=== PATIENT | female | born 1975 | race Caucasian/White ===

== ENCOUNTER → 2017-05-09 15:12 | Outpatient (POV) | payer BC, SELFPAY ==
[2017-05-09 15:48] VITALS: BP 152/101; PULSE 84; RESP 18; TEMP 36.6; O2SAT 98; BMI 33.4
--- NOTE | 2017-05-09 15:58 | P.CONS_ITS ---
[facility] Pain Management SOAP Note Subjective:: This patient is a pleasant 41-year-old white female who we are treating for bilateral hip pain. She is status post bilateral SI joint injections under fluoroscopy. She had 80% relief of her pain symptoms for approximately 3 weeks. Her pain is now returned gradually. I believe she would benefit from repeat bilateral SI joint injections under fluoroscopy. Objective:: Alert and oriented ?3 in no acute distress. Tenderness over both SI joints. Positive Nathalie's test bilaterally. Patient does have a normal gait. Motor strength of the lower extremities is 5/5. There are no gross sensory deficit. Assessment:: Sacroiliitis Plan:: We will seek approval and plan on repeat bilateral SI joint injections under fluoroscopy. The patient did get 80% relief of her pain symptoms and now pain is slowly starting to return.
== END ==
PROVIDERS: PCP Family Medicine; Visit Provider Anesthesiology
DX: M46.1 Sacroiliitis, not elsewhere classified (principal)
CPT/HCPCS: 99212

== ENCOUNTER → 2017-06-10 15:47 | Day surgery (SDC) | payer BC, SELFPAY ==
[2017-06-10 16:01] VITALS: BP 144/90; BP 146/91; PULSE 79; PULSE 80; RESP 16; RESP 18; TEMP 36.4; TEMP 36.6; O2SAT 98; O2SAT 99; BMI 34.2
--- NOTE | 2017-06-10 16:18 | HMH.PMPROC ---
- Procedure Date: 06/10/17 Time: 16:20 Anesthesiologist:: Jamel Wayne MD Complications:: None Pre-procedure Diagnosis:: Bilateral sacroiliitis Post-procedure Diagnosis:: Same Indications for Procedure:: Pump refill this patient is a pleasant 41-year-old white female who we are treating for bilateral hip pain. She did well with previous bilateral SI joint injections. Her pain is starting to return. We will do repeat bilateral SI joint injections under fluoroscopy. She does have positive Nathalie's test bilaterally. Procedure Details:: B/L SI joint injection under fluoroscopy Informed consent was obtained and the risks and benefits of the procedure was explained to the patient. The patient was taken to the procedure room and placed prone on the procedure table. The patient was prepped using ChloraPrep. The skin and subcutaneous tissues overlying the SI joints were anesthetized using lidocaine. I placed a 22-gauge needle first in the left SI joint and second in the right SI joint. Needle placement was confirmed with dye. After this we injected 5 mL bupivacaine 0.25% and Depo-Medrol 40 mg into each SI joint. Patient tolerated the procedure well with no complication. Plan and Disposition:: We will follow-up with her in 2 weeks. We will reevaluate her symptoms at that time.
[2017-06-10 16:19] VITALS: BP 176/100; PULSE 66; RESP 18
[2017-06-10 16:24] VITALS: BP 156/100; PULSE 69; RESP 18
== END ==
PROVIDERS: Family Provider Family Medicine; PCP Family Medicine; Visit Provider Anesthesiology
DX: M46.1 Sacroiliitis, not elsewhere classified (principal)
CPT/HCPCS: 27096; G0260; J1030; Q9966

== ENCOUNTER → 2017-06-28 15:17 | Outpatient (POV) | payer BC, SELFPAY ==
[2017-06-28 15:22] VITALS: BP 166/85; PULSE 91; RESP 18; O2SAT 100; BMI 33.4
--- NOTE | 2017-06-28 15:59 | HMH.PAINSOAP ---
[facility] Pain Management SOAP Note Subjective:: Patient is a pleasant 41-year-old white female who presents today for follow-up after bilateral SI joint injections. Patient has been doing well since her injection she reports moderate to significant relief. Patient's functionality has increased since her last injections. Patient is having some myofascial pain in her thoracic spine at this time. Patient is continuing to use stretching therapies to help alleviate this. Patient is not currently on any muscle relaxers. ROS General: no recent weight change, no fever, no sleep disturbances Respiratory: no cough, no shortness of air, no recurring pulmonary infections Cardiovascular/Peripheral Vascular: No chest pain, No palpitations, no edema, no shortness of breath. Gastrointestinal: no incontinence, normal bowel movements reported Genitourinary: no incontinence Musculoskeletal: Thoracic back pain, bilateral SI joint pain Psychiatric: normal mood/ affect, Neurological: [denies weakness in extremities], [denies balance issues] Objective:: Physical Exam General: Alert and oriented x3, no acute distress, pleasant and cooperative, [on room air] Lungs: Resps E/U, Symmetrical chest expansion, Eyes: PERRL Musculoskeletal: Flexion and extension of lumbar spine somewhat guarded secondary to pain, deep tendon reflexes normal, strength in upper and lower extremities [5/5], normal gait noted, positive Nathalie's test bilaterally, palpable trigger point in the thoracic paraspinous on the right side. Neurological: speech clear, nurse wound care equal, no gross sensory deficits Assessment:: Myofascial pain syndrome, sacroiliitis Plan:: We will call in the patient's Zanaflex 4 mg 1 p.o. 3 times daily as needed. I discussed with the patient to take this at nighttime to see how it affects her prior to resuming normal activities. We will possibly do another SI joint injection in the future but patient is having good relief with it still at this point. Patient is to continue her home stretching exercises. We will follow-up with this patient in 3 months unless she needs us before that. This note was dictated using voice recognition software and may contain errors or omissions
--- NOTE | 2017-06-28 16:02 | P.CONS_ITS ---
[facility] Pain Management SOAP Note Subjective:: Patient is a pleasant 41-year-old white female who presents today for follow-up after bilateral SI joint injections. Patient has been doing well since her injection she reports moderate to significant relief. Patient's functionality has increased since her last injections. Patient is having some myofascial pain in her thoracic spine at this time. Patient is continuing to use stretching therapies to help alleviate this. Patient is not currently on any muscle relaxers. ROS General: no recent weight change, no fever, no sleep disturbances Respiratory: no cough, no shortness of air, no recurring pulmonary infections Cardiovascular/Peripheral Vascular: No chest pain, No palpitations, no edema, no shortness of breath. Gastrointestinal: no incontinence, normal bowel movements reported Genitourinary: no incontinence Musculoskeletal: Thoracic back pain, bilateral SI joint pain Psychiatric: normal mood/ affect, Neurological: [denies weakness in extremities], [denies balance issues] Objective:: Physical Exam General: Alert and oriented x3, no acute distress, pleasant and cooperative, [ on room air] Lungs: Resps E/U, Symmetrical chest expansion, Eyes: PERRL Musculoskeletal: Flexion and extension of lumbar spine somewhat guarded secondary to pain, deep tendon reflexes normal, strength in upper and lower extremities [5/5], normal gait noted, positive Nathalie's test bilaterally, palpable trigger point in the thoracic paraspinous on the right side. Neurological: speech clear, hydraulic mechanic equal, no gross sensory deficits Assessment:: Myofascial pain syndrome, sacroiliitis Plan:: We will call in the patient's Zanaflex 4 mg 1 p.o. 3 times daily as needed. I discussed with the patient to take this at nighttime to see how it affects her prior to resuming normal activities. We will possibly do another SI joint injection in the future but patient is having good relief with it still at this point. Patient is to continue her home stretching exercises. We will follow- up with this patient in 3 months unless she needs us before that. This note was dictated using voice recognition software and may contain errors or omissions
--- NOTE | 2017-06-30 14:07 | PC.PHONENOTE ---
called in Rx for Zanaflex 4mg TID prn #90 with no refills to [facility] in [place]
== END ==
PROVIDERS: Family Provider Family Medicine; PCP Family Medicine; Visit Provider Clinical Nurse Specialist Family Health
DX: M79.1 Myalgia (principal); M46.1 Sacroiliitis, not elsewhere classified
CPT/HCPCS: 99212

== ENCOUNTER → 2017-09-26 09:12 | Outpatient (POV) | payer BC, SELFPAY ==
[2017-09-26 10:01] VITALS: BP 143/92; PULSE 80; RESP 18; O2SAT 97; BMI 32.5
--- NOTE | 2017-09-26 12:33 | HMH.PAINSOAP ---
[facility] Pain Management SOAP Note Subjective:: Patient is a pleasant 42-year-old white female who presents today for follow-up. Patient has had bilateral SI joint injections in the past with good relief. Today she reports a different kind of pain going from her back and radiating into her left leg. Patient does have MRI of lumbar spine doing an L4-L5 disc bulge. She is taking Zanaflex at bedtime this is been very beneficial for her. Patient is continuing her home stretching exercises. Patient's tried and failed anti-inflammatory medications. Patient rates her pain a 6 out of 10 today. ROS General: no recent weight change, no fever, no sleep disturbances Respiratory: no cough, no shortness of air, no recurring pulmonary infections Cardiovascular/Peripheral Vascular: No chest pain, No palpitations, no edema, no shortness of breath. Gastrointestinal: no incontinence, normal bowel movements reported Genitourinary: no incontinence Musculoskeletal: Back pain, leg pain Psychiatric: normal mood/ affect Neurological: [denies weakness in extremities], [denies balance issues] Objective:: Physical Exam General: Alert and oriented x3, no acute distress, pleasant and cooperative, [on room air] Lungs: Resps E/U, Symmetrical chest expansion, Eyes: PERRL Musculoskeletal: Flexion and extension of lumbar spine somewhat guarded secondary to pain, deep tendon reflexes normal, strength in upper and lower extremities [5/5], normal gait noted, positive straight leg raise test at 30? bilaterally Neurological: speech clear, refractory bricklayer equal, no gross sensory deficits Assessment:: Degenerative disc disease of the lumbar spine with lumbar radiculopathy, disc bulge Plan:: We will schedule an L4-L5 lumbar epidural steroid injection. Given her relief with injections in the past I believe that this will be beneficial given her symptomology. Patient is not on any blood thinners. We will also refill her Zanaflex 4 mg 1 p.o. 3 times daily. I will follow-up with this patient after her injection we will reassess her symptoms at that time. This note was dictated using voice recognition software and may contain errors or omissions
--- NOTE | 2017-09-26 12:37 | P.CONS_ITS ---
[facility] Pain Management SOAP Note Subjective:: Patient is a pleasant 42-year-old white female who presents today for follow- up. Patient has had bilateral SI joint injections in the past with good relief. Today she reports a different kind of pain going from her back and radiating into her left leg. Patient does have MRI of lumbar spine doing an L4- L5 disc bulge. She is taking Zanaflex at bedtime this is been very beneficial for her. Patient is continuing her home stretching exercises. Patient's tried and failed anti-inflammatory medications. Patient rates her pain a 6 out of 10 today. ROS General: no recent weight change, no fever, no sleep disturbances Respiratory: no cough, no shortness of air, no recurring pulmonary infections Cardiovascular/Peripheral Vascular: No chest pain, No palpitations, no edema, no shortness of breath. Gastrointestinal: no incontinence, normal bowel movements reported Genitourinary: no incontinence Musculoskeletal: Back pain, leg pain Psychiatric: normal mood/ affect Neurological: [denies weakness in extremities], [denies balance issues] Objective:: Physical Exam General: Alert and oriented x3, no acute distress, pleasant and cooperative, [ on room air] Lungs: Resps E/U, Symmetrical chest expansion, Eyes: PERRL Musculoskeletal: Flexion and extension of lumbar spine somewhat guarded secondary to pain, deep tendon reflexes normal, strength in upper and lower extremities [5/5], normal gait noted, positive straight leg raise test at 30? bilaterally Neurological: speech clear, sports marketing coordinator equal, no gross sensory deficits Assessment:: Degenerative disc disease of the lumbar spine with lumbar radiculopathy, disc bulge Plan:: We will schedule an L4-L5 lumbar epidural steroid injection. Given her relief with injections in the past I believe that this will be beneficial given her symptomology. Patient is not on any blood thinners. We will also refill her Zanaflex 4 mg 1 p.o. 3 times daily. I will follow-up with this patient after her injection we will reassess her symptoms at that time. This note was dictated using voice recognition software and may contain errors or omissions
== END ==
PROVIDERS: Family Provider Family Medicine; PCP Family Medicine; Visit Provider Clinical Nurse Specialist Family Health
DX: M54.16 Radiculopathy, lumbar region (principal)
CPT/HCPCS: 99212

== ENCOUNTER → 2017-10-20 08:15 | Outpatient (CLI) | payer BC, SELFPAY ==
--- NOTE | 2017-10-20 08:18 | MM_ITS ---
MM Dig screening mamm BI w/CAD ORDERING PHYSICIAN : Laura Woods PATIENT AGE: 42 years GENDER: Female COMPARISON: Baseline mammogram, with no previous for comparison INDICATION: ITS.REASON: SCREENING no hormones. No complaints. TECHNIQUE: Standard CC and MLO images were obtained. R2 CAD reviewed. FINDINGS: Moderately dense heterogeneous breast with mild asymmetry No dominant mass nor suspicious calcifications either breast. RIGHT BREAST:The asymmetric breast tissue most evident towards the medial central breast on right but this tissue appears to dissipate on the subsequent MLO and axillary cc view. LEFT BREAST:No unique focal area of concern. Moderately dense breast tissue most evident towards upper outer quadrant . Bilateral follow-up in one year adequate but should be encouraged and emphasized confirm stable baseline character IMPRESSION: Baseline mammogram reveals no suspicious findings. No focal area of concern. . moderately dense inhomogeneous and moderate asymmetric breast . Bilateral follow-up in one year recommended. Suggest Encouraged and emphasized to confirm stable baseline character in this heterogeneous breast BI-RADS Category: 2 Benign Finding(s) RECOMMENDED FOLLOW-UP: 1YR 1 YEAR FOLLOW-UP (A letter has been sent to the patient regarding results of the study.)
== END ==
PROVIDERS: Family Provider Family Medicine; PCP Family Medicine; Visit Provider Student in an Organized Health Care Education/Training Program
DX: Z12.31 Encounter for screening mammogram for malignant neoplasm of breast (principal)
CPT/HCPCS: 77067

== ENCOUNTER → 2017-11-07 09:00 | Outpatient (POV) | payer BC, SELFPAY ==
[2017-11-07 09:27] VITALS: BP 141/88; PULSE 69; RESP 18; O2SAT 98; BMI 34.2
--- NOTE | 2017-11-07 09:35 | HMH.PAINSOAP ---
[facility] Pain Management SOAP Note Subjective:: Patient is a pleasant 42-year-old white female who we are treating for low back pain with bilateral hip pain and radiation down her legs. Patient is following up after lumbar epidural steroid injection. Patient states she is up to 80% better. Patient states she is sleeping better. Patient is still on Zanaflex 4 mg 1 p.o. 3 times daily. Patient still has some back pain. If patient is having worsening back pain I believe an MRI may be beneficial just to rule out any additional or new pathology. ROS General: no recent weight change, no fever, no sleep disturbances Respiratory: no cough, no shortness of air, no recurring pulmonary infections Cardiovascular/Peripheral Vascular: No chest pain, No palpitations, no edema, no shortness of breath. Gastrointestinal: no incontinence, normal bowel movements reported Genitourinary: no incontinence Musculoskeletal: Back pain, leg pain Psychiatric: normal mood/ affect Neurological: [denies weakness in extremities], [denies balance issues] Objective:: Physical Exam General: Alert and oriented x3, no acute distress, pleasant and cooperative, [on room air] Lungs: Resps E/U, Symmetrical chest expansion, Eyes: PERRL Musculoskeletal: Flexion and extension of lumbar spine somewhat guarded secondary to pain, deep tendon reflexes normal, strength in upper and lower extremities [5/5], slightly antalgic gait noted Neurological: speech clear, envelope fold operator equal, no gross sensory deficits Assessment:: Degenerative disc disease of lumbar spine with lumbar radiculopathy Plan:: We will refill the patient's Zanaflex 4 mg 1 tab p.o. 3 times daily. We will follow-up with the patient on an as-needed basis. If patient continues to have worsening back pain we will order a brand-new MRI. This note was dictated using voice recognition software and may contain errors or omissions
--- NOTE | 2017-11-07 09:38 | P.CONS_ITS ---
[facility] Pain Management SOAP Note Subjective:: Patient is a pleasant 42-year-old white female who we are treating for low back pain with bilateral hip pain and radiation down her legs. Patient is following up after lumbar epidural steroid injection. Patient states she is up to 80% better. Patient states she is sleeping better. Patient is still on Zanaflex 4 mg 1 p.o. 3 times daily. Patient still has some back pain. If patient is having worsening back pain I believe an MRI may be beneficial just to rule out any additional or new pathology. ROS General: no recent weight change, no fever, no sleep disturbances Respiratory: no cough, no shortness of air, no recurring pulmonary infections Cardiovascular/Peripheral Vascular: No chest pain, No palpitations, no edema, no shortness of breath. Gastrointestinal: no incontinence, normal bowel movements reported Genitourinary: no incontinence Musculoskeletal: Back pain, leg pain Psychiatric: normal mood/ affect Neurological: [denies weakness in extremities], [denies balance issues] Objective:: Physical Exam General: Alert and oriented x3, no acute distress, pleasant and cooperative, [ on room air] Lungs: Resps E/U, Symmetrical chest expansion, Eyes: PERRL Musculoskeletal: Flexion and extension of lumbar spine somewhat guarded secondary to pain, deep tendon reflexes normal, strength in upper and lower extremities [5/5], slightly antalgic gait noted Neurological: speech clear, bonbon cream warmer equal, no gross sensory deficits Assessment:: Degenerative disc disease of lumbar spine with lumbar radiculopathy Plan:: We will refill the patient's Zanaflex 4 mg 1 tab p.o. 3 times daily. We will follow-up with the patient on an as-needed basis. If patient continues to have worsening back pain we will order a brand-new MRI. This note was dictated using voice recognition software and may contain errors or omissions
== END ==
PROVIDERS: Family Provider Family Medicine; PCP Family Medicine; Visit Provider Clinical Nurse Specialist Family Health
DX: M54.16 Radiculopathy, lumbar region (principal)
CPT/HCPCS: 99212

== ENCOUNTER → 2018-01-16 15:39 | Outpatient (POV) | payer BC, SELFPAY ==
[2018-01-16 15:54] VITALS: BP 118/74; PULSE 83; RESP 18; O2SAT 98; BMI 34.2
--- NOTE | 2018-01-19 10:37 | PC.PHONENOTE ---
CALLED IN RX FOR GABAPENTIN 100MG QHS WITH 2 REFILLS AND CANCELLED RX FOR ELAVIL PER PROVIDER ORDER.
--- NOTE | 2018-02-21 08:53 | HMH.PAINSOAP ---
[facility] Pain Management SOAP Note Subjective:: Patient is a pleasant 42-year-old white female who presents today for follow-up after SI joint injection. Patient is doing well however she is having some low back pain. Patient does not have any recent MRI. Rates her pain a 5 out of 10. Patient is continuing to have some difficulty sleeping. Patient does take Zanaflex to help. ROS General: no recent weight change, no fever, no sleep disturbances Respiratory: no cough, no shortness of air, no recurring pulmonary infections Cardiovascular/Peripheral Vascular: No chest pain, No palpitations, no edema, no shortness of breath. Gastrointestinal: no incontinence, normal bowel movements reported Genitourinary: no incontinence Musculoskeletal: Back pain, leg pain Psychiatric: normal mood/ affect Neurological: [denies weakness in extremities], [denies balance issues] Objective:: Physical Exam General: Alert and oriented x3, no acute distress, pleasant and cooperative, [on room air] Lungs: Resps E/U, Symmetrical chest expansion, Eyes: PERRL Musculoskeletal: Flexion and extension of lumbar spine somewhat guarded secondary to pain, deep tendon reflexes normal, strength in upper and lower extremities [5/5], slightly antalgic gait noted Neurological: speech clear, justice court deputy clerk equal, no gross sensory deficits Assessment:: Back pain, SI joint pain sacroiliitis Plan:: We will schedule an MRI for the patient. If she has pathology we will plan on L4-L5 lumbar epidural steroid injection. Patient is not on any anticoagulation therapy. Patient is continuing to be active and continuing a home stretching program. Patient is on anti-inflammatories. This note was dictated using voice recognition software and may contain errors or omissions
== END ==
PROVIDERS: Family Provider Family Medicine; PCP Family Medicine; Visit Provider Clinical Nurse Specialist Family Health
DX: Z53.8 Procedure and treatment not carried out for other reasons (principal)

== ENCOUNTER → 2018-01-25 15:52 | Outpatient (CLI) | payer BC, SELFPAY ==
--- NOTE | 2018-01-25 15:55 | MR_ITS ---
MR lumbar spine wo con, MR 3-d myelogram/MRCP HISTORY: LBP XYRS. Intermittent bilateral leg numbness and pain. RT leg is worse. NO HX back surgery No trauma. ITS.REASON: BACK PAIN ORDERING PHYSICIAN: Ani Stark PATIENT AGE: 42 years Comparison: CT 03-25-16 TECHNIQUE: Standard multiplanar multiecho sequences are performed without contrast. 3-D MIP and myelographic images are also rendered and reviewed FINDINGS: There is normal alignment. The spinal cord ends at the L1-L2 level. T11-T12: Degenerative disc disease. Minimal right-sided facet and ligamentum hypertrophy T12-L1: Mild degenerative disc disease. L1-L2: Unremarkable. L2-L3: Minimal disc desiccation with mild facet and ligamentum hypertrophy. L3-L4: Minimal bulging disc with minimal central disc protrusion and mild facet and ligamentum hypertrophy. L4-L5: Mild concentric bulging disc with minimal central disc protrusion with a small annular fissure. The bulging disc and minimal disc protrusion does abut the anterior aspect of both L5 nerve roots without significant displacement. There is mild facet and ligamentum hypertrophy. L5-S1: Degenerative disc disease with bulging disc and a small broad-based central left paracentral disc protrusion which abuts the anteromedial aspect of both S1 nerve roots. There is mild facet and ligamentum hypertrophy. No canal stenosis or extruded herniated disc evident. IMPRESSION: 1. Mild degenerative changes. Please see above for detailed description at each level with mild degenerative disc disease along with facet and ligamentum hypertrophy. 2. Minimal bulging disc and minimal central disc protrusion at L3-L4. 3. Mild concentric bulging disc at L4-L5 with minimal central disc protrusion with a small annular fissure. The bulging disc and minimal disc protrusion does abut the anterior aspect of both L5 nerve roots without significant displacement. There is mild facet and ligamentum hypertrophy. 4. Degenerative disc disease at L5-S1 with bulging disc and a small broad-based central /left paracentral disc protrusion which abuts the anteromedial aspect of both S1 nerve roots. There is mild facet and ligamentum hypertrophy
== END ==
PROVIDERS: Family Provider Family Medicine; PCP Family Medicine; Visit Provider Clinical Nurse Specialist Family Health
DX: M54.5 Low back pain (principal)
CPT/HCPCS: 72148; 76376

== ENCOUNTER → 2018-03-06 15:54 | Outpatient (POV) | payer BC, SELFPAY ==
[2018-03-06 16:27] LABS: Basophils # 0.1 K/mm3 (0-0.2); Basophils % 0.7 % (0.1-2.0); Eosinophils # 0.2 K/mm3 (0.0-0.4); Eosinophils % 2.1 % (0.1-12.0); Hematocrit 33.9 % (37.0-47.0); Hemoglobin 10.6 g/dL (12.2-16.2); Lymphocytes # 3.4 K/mm3 (0.7-4.5); Lymphocytes % 28.8 % (10-50); Mean Corpuscular HGB Conc 31.4 g/dL (31.8-35.4); Mean Corpuscular Hemoglobin 24.6 pg (27.0-31.2); Mean Corpuscular Volume 78.4 fl (81-99); Mean Platelet Volume 7.2 fl (7.4-10.4); Monocytes # 0.7 K/mm3 (0.1-1.0); Monocytes % 5.8 % (1.7-9.3); Neutrophils # 7.3 K/mm3 (1.8-7.8); Neutrophils % 62.7 % (37.0-80.0); Platelet Count 522 K/mm3 (142-424); Red Blood Count 4.32 M/mm3 (4.20-5.40); Red Cell Distribution Width 15.7 % (11.5-17.5); White Blood Count 11.7 K/mm3 (4.8-10.8)
[2018-03-06 18:15] LABS: Erythrocyte Sedimentation Rate 52 mm/hr (0-20)
[2018-03-06 18:49] LABS: Alanine Aminotransferase 28 U/L (12-78); Albumin Level 3.5 gm/dL (3.4-5.0); Albumin/Globulin Ratio 0.8 (1.1-1.8); Alkaline Phosphatase 67 U/L (46-116); Anion Gap 15.3 mEq/L (5-15); Aspartate Amino Transferase 9 U/L (15-37); Bilirubin,Total 0.2 mg/dL (0.2-1.0); Blood Urea Nitrogen 25 mg/dL (7-18); C-Reactive Protein 1.1 mg/L (0.0-0.9); Calcium 9.3 mg/dL (8.5-10.1); Carbon Dioxide 25 mmol/L (21.0-32.0); Chloride 101 mmol/L (98-107); Creatinine,Serum 1.16 mg/dL (0.55-1.02); Estimated Glomerular Filt Rate 51 ml/min (>60); Ferritin 13 ng/mL (8-388); GFR (African American) 62 ML/MIN (>60); Globulin 4.3 gm/dl (1.3-3.2); Glucose 76 mg/dL (74-106); Potassium 4.3 mmoL/L (3.5-5.1); Sodium 137 mmol/L (136-145); Total Protein,Serum 7.8 gm/dL (6.4-8.2)
[2018-03-08 08:43] LABS: Vitamin D 25 Hydroxy 26.1 ng/mL (30.0-100.0)
[2018-03-08 09:20] LABS: Iron 41 ug/dL (27-159); UIBC 359 ug/dL (131-425)
[2018-03-08 11:09] LABS: Iron Saturation 10 % (15-55); Vitamin B12 792 pg/mL (232-1245)
== END ==
PROVIDERS: Visit Provider Nurse Practitioner Acute Care
DX: D50.9 Iron deficiency anemia, unspecified (principal); E55.9 Vitamin D deficiency, unspecified
CPT/HCPCS: 36415; 80053; 82607; 82652; 82728; 83540; 83550; 85025; 85651; 86140

== ENCOUNTER → 2018-03-13 15:32 | Outpatient (POV) | payer BC, SELFPAY ==
[2018-03-13 15:48] VITALS: BP 129/81; PULSE 73; RESP 18; O2SAT 98; BMI 33.4
--- NOTE | 2018-03-13 15:59 | P.CONS_ITS ---
[facility] Pain Management SOAP Note Subjective:: She is a pleasant 42-year-old white female who presents today for follow-up after recent MRI. Patient does show some degenerative disc changes along with facet and ligamentum hypertrophy. Patient states that her low back is actually doing quite well at this time. However she has an upper pain that appears during the nighttime. Patient is unsure if it is muscular in nature. Patient has not tried any dry needling and may be interested in this. She rates her pain a 4 out of 10 today. ROS General: no recent weight change, no fever, no sleep disturbances Respiratory: no cough, no shortness of air, no recurring pulmonary infections Cardiovascular/Peripheral Vascular: No chest pain, No palpitations, no edema, no shortness of breath. Gastrointestinal: no incontinence, normal bowel movements reported Genitourinary: no incontinence Musculoskeletal: Back pain, leg pain Psychiatric: normal mood/ affect, Neurological: [denies weakness in extremities], [denies balance issues] Objective:: Physical Exam General: Alert and oriented x3, no acute distress, pleasant and cooperative, [on room air] Lungs: Resps E/U, Symmetrical chest expansion, Eyes: PERRL Musculoskeletal: Flexion and extension of lumbar spine somewhat guarded secondary to pain, deep tendon reflexes normal, strength in upper and lower extremities [5/5], normal gait noted Neurological: speech clear, social service worker equal, no gross sensory deficits Assessment:: Degenerative disc disease lumbar spine with lumbar radiculopathy along with facet hypertrophy and bulging disc Plan:: We will schedule the patient for dry needling to see if this helps with her pain symptoms. I will follow-up with her after this. Patient's been instructed to call the office if she has any issues prior to her next appointment. This note was dictated using voice recognition software and may contain errors or omissions
== END ==
PROVIDERS: PCP Family Medicine; Visit Provider Clinical Nurse Specialist Family Health
DX: M51.16 Intervertebral disc disorders with radiculopathy, lumbar region (principal); M53.80 Other specified dorsopathies, site unspecified; M51.27 Other intervertebral disc displacement, lumbosacral region
CPT/HCPCS: 99213

== ENCOUNTER 2018-06-04 09:17 | Emergency (ER) | payer BC, SELFPAY ==
--- NOTE | 2018-06-04 09:44 | PC.NURSE ---
0944: PT SWABBED FOR STREP
[2018-06-04 09:45] VITALS: BP 156/95; PULSE 92; RESP 20; TEMP 37; O2SAT 97; BMI 34.2
[2018-06-04 09:50] LABS: UTC Strep Screen (Rapid) Negative (Negative)
--- NOTE | 2018-06-04 10:09 | HMH.EDUTC ---
[facility] [place] Clinical Impression: Otitis media Qualifiers: Otitis media type: suppurative Chronicity: acute Laterality: right Recurrence: recurrent Spontaneous tympanic membrane rupture: with spontaneous rupture Qualified Code(s): H66.014 - Acute suppurative otitis media with spontaneous rupture of ear drum, recurrent, right ear Disposition: Home, Self-Care Condition on Discharge: Good Instructions: Middle Ear Infection, Ruptured Eardrum, DI for Tympanic Membrane Perforation-Adult Additional Instructions: Drink plenty of fluids. Take tylenol or ibuprofen for pain. Take all the medications as prescribed. Don't start the steroids (medrol dose pack) until tomorrow. You had the shot here in the office. Go ahead and start the antibiotics and antibiotic drops (doxycycline, ciprodex drops) F/u with the ENT doctor as referred. Please call and make yourself an appointment. Go to your regular doctor if you are not getting better in 48 hours or so. GO TO THE ER FOR ANY WORSENING OR LIFE THREATENING SYMPTOMS Prescriptions: Cetirizine HCl [Zyrtec] 10 mg PO DAILY 30 Days #30 capsule Ciprofloxacin HCl/Dexameth [Cipro 0.3%-Dex 0.1% Otic Susp 7.5mL] 4 drops EAR-RIGHT BID 7 Days #1 bottle Doxycycline Hyclate [Doxycycline 100mg Capsule] 100 mg PO BID 10 Days #20 cap Fluticasone Propionate [Flonase 50mcg nasal spray 16gm] 2 spr NS DAILY #1 bottle methylPREDNISolone [Medrol] 4 mg PO DIRECTED 6 Days #21 [email or web address] Referrals: Tom Miller MD [Primary Care Provider] - Raffaele Stuart MD [Staff Physician] - Time of Disposition: 10:39 Medical Decision Making - Medical Records Medical records reviewed: No: I reviewed the patient's medical records. - Lai Inquiry Pt receiving controlled substance: No Lai was queried for this patient: No Vital Signs: 06/04/18 09:45 06/04/18 10:21 Temperature 98.6 F 98.4 F Temperature Source Oral Oral Pulse Rate 88 Pulse Rate [Right Radial] 92 H Respiratory Rate 20 18 Blood Pressure 148/92 H Blood Pressure [Right Arm] 156/95 H Blood Pressure Mean [Right Arm] 115 Blood Pressure Source Automatic Cuff Blood Pressure Position Sitting 02 Sat by Pulse Oximetry 97 Oxygen Delivery Method Room Air Room Air - Lab Data Lab results reviewed: Yes: I reviewed the patient's lab results. Lab Results 06/04/18 09:36: Strep Scn Rapid Clinic Negative Orders (Tests/Meds): ED MEDICATIONS Discontinued Medications Generic Name Dose Route Start Last Admin Trade Name Yves PRN Reason Stop Dose Admin Ceftriaxone Sodium 1 gm 06/04/18 10:26 06/04/18 10:33 Rocephin 1gm Vial IM 06/04/18 10:27 Not Given ONCE ONE Protocol Lidocaine HCl 0 ml 06/04/18 10:26 06/04/18 10:33 Lidocaine 1% 10ml Mdv IM 06/04/18 10:27 Not Given ONCE ONE Methylprednisolone Sodium Succinate 125 mg 06/04/18 10:26 06/04/18 10:34 Solu-Medrol 125mg/2ml Vial IM 06/04/18 10:27 125 mg ONCE ONE Administration ORDERS Category Date Time Status Strep Screen Confirmation Stat Micro 06/04/18 09:36 Received [facility] [place] HPI - General Stated complaint: sore throat, right ear pain Time Seen by Provider: 06/04/18 10:11 Mode of Arrival: Family Vehicle Source of Information: Patient Limitations: No Limitations Description of Symptoms (Recalled from Triage Doc. by RN): pt c/o sore throat for 4 days, drainage, and ear pain and woke up with blood on her pillow from her ear. HEENT Symptoms (Recalled from RN notes): Yes (sore throat, ear pain/blood,drainage) Resp Symptoms (Recalled from RN notes): No Skin Symptoms (Recalled from RN notes): No MS Symptoms (Recalled from RN notes): No Functional Status (Recalled from RN notes): na - History of Present Illness Provider Complaint: pt c/o sore throat for 4 days, drainage, and ear pain and woke up with blood on her pillow from her ear. - Related Jim
--- NOTE | 2018-06-04 10:13 | PC.NURSE ---
1013: deidre jerry at bedside
--- NOTE | 2018-06-04 10:15 | ED_ITS ---
[facility] [place] Dis[place] Clinical Impression: Otitis media Qualifiers: Otitis media type: suppurative Chronicity: acute Laterality: right Recurrence: recurrent Spontaneous tympanic membrane rupture: with spontaneous rupture Qualified Code(s): H66.014 - Acute suppurative otitis media with spontaneous rupture of ear drum, recurrent, right ear Disposition: Home, Self-Care Condition on Discharge: Good Instructions: Middle Ear Infection, Ruptured Eardrum, DI for Tympanic Membrane Perforation-Adult Additional Instructions: Drink plenty of fluids. Take tylenol or ibuprofen for pain. Take all the medications as prescribed. Don't start the steroids (medrol dose pack) until tomorrow. You had the shot here in the office. Go ahead and start the antibiotics and antibiotic drops (doxycycline, ciprodex drops) F/u with the ENT doctor as referred. Please call and make yourself an appointment. Go to your regular doctor if you are not getting better in 48 hours or so. GO TO THE ER FOR ANY WORSENING OR LIFE THREATENING SYMPTOMS Prescriptions: Cetirizine HCl [Zyrtec] 10 mg PO DAILY 30 Days #30 capsule Ciprofloxacin HCl/Dexameth [Cipro 0.3%-Dex 0.1% Otic Susp 7.5mL] 4 drops EAR- RIGHT BID 7 Days #1 bottle Doxycycline Hyclate [Doxycycline 100mg Capsule] 100 mg PO BID 10 Days #20 cap Fluticasone Propionate [Flonase 50mcg nasal spray 16gm] 2 spr NS DAILY #1 bottle methylPREDNISolone [Medrol] 4 mg PO DIRECTED 6 Days #21 [email or web address] Referrals: Tom Miller MD [Primary Care Provider] - Raffaele Stuart MD [Staff Physician] - Time of Disposition: 10:39 Medical Decision Making - Medical Records Medical records reviewed: No: I reviewed the patient's medical records. - Lai Inquiry Pt receiving controlled substance: No Lai was queried for this patient: No Vital Signs: 06/04/18 09:45 06/04/18 10:21 Temperature 98.6 F 98.4 F Temperature Source Oral Oral Pulse Rate 88 Pulse Rate [Right Radial] 92 H Respiratory Rate 20 18 Blood Pressure 148/92 H Blood Pressure [Right Arm] 156/95 H Blood Pressure Mean [Right Arm] 115 Blood Pressure Source Automatic Cuff Blood Pressure Position Sitting 02 Sat by Pulse Oximetry 97 Oxygen Delivery Method Room Air Room Air - Lab Data Lab results reviewed: Yes: I reviewed the patient's lab results. Lab Results 06/04/18 09:36: Strep Scn Rapid Clinic Negative Orders (Tests/Meds): ED MEDICATIONS Discontinued Medications Generic Name Dose Route Start Last Admin Trade Name Yves PRN Reason Stop Dose Admin Ceftriaxone Sodium 1 gm 06/04/18 10:26 06/04/18 10:33 Rocephin 1gm Vial IM 06/04/18 10:27 Not Given ONCE ONE Protocol Lidocaine HCl 0 ml 06/04/18 10:26 06/04/18 10:33 Lidocaine 1% 10ml Mdv IM 06/04/18 10:27 Not Given ONCE ONE Methylprednisolone Sodium Succinate 125 mg 06/04/18 10:26 06/04/18 10:34 Solu-Medrol 125mg/2ml Vial IM 06/04/18 10:27 125 mg ONCE ONE Administration ORDERS Category Date Time S
[2018-06-04 10:21] VITALS: BP 148/92; PULSE 88; RESP 18; TEMP 36.9; O2SAT 98
== END 2018-06-04 10:42 | disposition home or self-care (01) ==
PROVIDERS: Emergency Provider Nurse Practitioner Family; PCP Family Medicine
DX: H66.014 Acute suppurative otitis media with spontaneous rupture of ear drum, recurrent, right ear (principal); Z88.0 Allergy status to penicillin; E78.5 Hyperlipidemia, unspecified; I10 Essential (primary) hypertension; F33.1 Major depressive disorder, recurrent, moderate
CPT/HCPCS: 87880; 96372; 99202

== ENCOUNTER → 2018-06-06 11:20 | Outpatient (POV) | payer BC, SELFPAY | PROVIDERS: Visit Provider Otolaryngology | DX: Z00.00 Encounter for general adult medical examination without abnormal findings (principal) ==

== ENCOUNTER 2018-07-13 15:30 | Outpatient (RCR) | payer BC, SELFPAY ==
--- NOTE | 2018-03-16 12:02 | HMH.PTOPEV ---
PT Outpatient Evaluation Rehab PT Outpatient Evaluation Start: 03/16/18 11:44 Freq: Status: Active Protocol: Document 03/16/18 11:46 SEAN (Rec: 03/16/18 12:01 SEAN [id number]) Electronically Signed By Randolph Hwang, PT 03/16/18 11:46 Outpatient Therapy Subjective History Subjective History Patient is a 42 year old female presenting to outpatient PT with reports of chronic low back pain with BLE radicular symptoms of insidious onset starting approximately 3 years ago. Most recent diagnostics indicate T11/12-L1/2 and L5/S1 DDD, as well as L 2/3/4/5 disc bulges. Pt reports constant numbness bilaterally to L3 dematome with intermittent L5/S1 radicular pain. Main complaint today is erector spinae mm tension L lumbar spine. Comorbidities include OA and chrones disease . She has previously received skilled PT services with minimal improvements noted. She is currently being treated in pain management with injections that have provied intermittent relief. Chief Complaint Pain Spasms Catches/Locks Paresthesia Symptom Type Ache Throb Dull Burning Shooting Symptoms Relieved By Rest/Positioning Heat Ice OTC Meds Prescription Meds Symptoms Aggravated By Prone Sitting Standing Bending/Stooping Physical Activity Twisting Walking Lifting Prior Functional Limitations None Current Functional Limitations Reaching Lifting Housework Latrell
--- NOTE | 2018-05-12 16:40 | HMH.RHREAS ---
Rehab Reassessment Rehab OP Re-assessment Start: 05/12/18 16:21 Freq: Status: Active Protocol: Document 05/12/18 16:21 SEAN (Rec: 05/12/18 16:40 SEAN [id number]) Electronically Signed By Randolph Hwang, PT 05/12/18 16:21 Rehab Re-assessment Subjective Subjective Pt reports 50% improvement since start of care. Objective Objective Notes MMT WNL except for R quad 4/5 AROM: flx 68 with pain; ext 10 with pain: SBr/l WNL Neuro: decreased sensation L 3 /4 dermatome; DTR WNL Pain: 5/10 today; 7/10 at worst past week. Assessment Progress Assessment Progressing as Expected Assessment Notes Patient was referred for dryneedling and has responded well to the procedure. She has not been seen in PT for 29 days secondary to illness and other time constraints. Pt experienced approx 1 week relief with needling rx. She continues to have intermittent exacerbations causing pain/ difficulty with bending and lifting activities. The symptoms result in functional limtations with household, occupational and recreational activities. Patient goals met STG 2 Goals Not Met LTG's STG 1 Revised Goals NA Plan Plan Continue with POC. Frequency of Therapy 1x/week Duration of therapy 4 weeks Time and Billing Re-Eval Time 15 Re-Eval Billing Units 1 PHYSICIAN CERTIFICATION: I certify the specified therapy services for Saira Jean Baptiste are required, authorized, and reviewed every 30 days.
== END 2018-07-13 15:35 | disposition home or self-care (01) ==
LOC: PT 15:30
PROVIDERS: Visit Provider Clinical Nurse Specialist Family Health
DX: M54.5 Low back pain (principal)
CPT/HCPCS: 97010; 97014; 97110; 97140; 97163; 97164; G0283

== ENCOUNTER → 2018-07-18 09:58 | Outpatient (POV) | payer BC, SELFPAY | PROVIDERS: Visit Provider Otolaryngology | DX: Z00.00 Encounter for general adult medical examination without abnormal findings (principal) ==

== ENCOUNTER → 2018-09-18 10:54 | Outpatient (POV) | payer BC, SELFPAY ==
--- NOTE | 2018-09-18 11:10 | P.CONS_ITS ---
[facility] Pain Management SOAP Note Subjective:: Patient is a pleasant 42-year-old white female who presents today for follow-up. Patient has been doing dry needling. She does report this is very effective. She has some degenerative disc changes along with facet and ligamentum hypertrophy. She does report to have some increased pain to the mid lower and right lower back pain, radiating to right hip. She rates her pain a 3 out of 10, unless she is moving, for which at that time her pain increases to a 5 or 6 out of 10. Patient states her SI joint pain has returned. She is had SI joint injections in the past with 80% relief up to 4 months. ROS General: no recent weight change, no fever, no sleep disturbances Respiratory: no cough, no shortness of air, no recurring pulmonary infections Cardiovascular/Peripheral Vascular: No chest pain, No palpitations, no edema, no shortness of breath. Gastrointestinal: no incontinence, normal bowel movements reported Genitourinary: no incontinence Musculoskeletal: [Back pain, leg pain] Psychiatric: normal mood/ affect, [denies depression], [denies anxiety] Neurological: [denies weakness in extremities], [denies balance issues] Objective:: Physical Exam General: Alert and oriented x3, no acute distress, pleasant and cooperative, [on room air] Lungs: Resps E/U, Symmetrical chest expansion, Eyes: PERRL Musculoskeletal: Flexion and extension of lumbar spine somewhat guarded secondary to pain, deep tendon reflexes normal, strength in upper and lower extremities [5/5], normal gait noted] positive Pete test, positive Earl's test, positive SI joint compression test on the right side, extreme point tenderness over right greater trochanteric bursa Neurological: speech clear, 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 We will also schedule the patient for right SI joint injection, along with right greater trochanteric bursa injection. Patient does report this is been effective for her pain in the past. She is been instructed to call the office if she has any issues prior to her next appointment. Dr. Wayne has reviewed this note and agrees with this plan of care. This note was dictated using voice recognition software and may contain errors or omissions
[2018-09-18 11:16] VITALS: BP 147/94; PULSE 74; RESP 18; O2SAT 98; BMI 33.7
== END ==
PROVIDERS: PCP Family Medicine; Visit Provider Clinical Nurse Specialist Family Health
DX: M51.16 Intervertebral disc disorders with radiculopathy, lumbar region (principal); M46.1 Sacroiliitis, not elsewhere classified; M46.96 Unspecified inflammatory spondylopathy, lumbar region; M71.9 Bursopathy, unspecified
CPT/HCPCS: 99212

== ENCOUNTER → 2018-09-26 14:26 | Day surgery (SDC) | payer BC, SELFPAY ==
[2018-09-26 14:31] VITALS: BP 140/99; PULSE 71; RESP 18; TEMP 36.7; O2SAT 99; BMI 33.4
[2018-09-26 14:55] VITALS: BP 141/82; PULSE 78; RESP 18; TEMP 36.7; O2SAT 98
--- NOTE | 2018-09-26 14:55 | HMH.PMPROC ---
- Procedure Date: 09/26/18 Time: 14:56 Anesthesiologist:: Ani Stark APRN Complications:: None Pre-procedure Diagnosis:: Sacroiliitis, bursitis Post-procedure Diagnosis:: Same Indications for Procedure:: Patient is a pleasant 43-year-old white female who presents today for right SI joint right greater trochanteric bursa injection. Patient had injections in the past with up to 80% relief for several months. Patient would like to repeat this she rates her pain a 6 out of 10. She is a positive Pete, SI joint compression, Earl's test on the right side. She also is extremely tender over the right greater trochanteric bursa. 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 Patient was taken to the procedure room. Patient was placed prone on the procedure table. The [right] hip was prepped using ChloraPrep as a cleansing solution. The skin and subcutaneous tissues were anesthetized using lidocaine. Using fluoroscopic guidance I placed a 22-gauge spinal needle into the inferior aspect of the [right] SI joint. After this I injected 5 mL bupivacaine 0.25% and Depo-Medrol 40 mg into the [right] SI joint. The patient tolerated the procedure well with no complication. We then moved onto the greater trochanteric bursa After informed consent was obtained and the risk and benefits were explained to the patient the patient was taken to the procedure room and placed in supine position. Under fluoroscopic guidance the area of maximal tenderness was identified. The skin overlying the right hip region was prepped with ChloraPrep and draped in sterile fashion. Strict aseptic technique was observed throughout the entire procedure. The skin was anesthetized with 1% lidocaine without epinephrine. A 22-gauge spinal needle was passed to the area of the greater trochanteric bursa using fluoroscopic guidance. 1.5 mL's of Omnipaque 300 preservative-free contrast was injected into the joint to confirm location 3 mL's of a solution containing 0.25% bupivacaine and 40 mg of Depo-Medrol were injected into the bursa the patient tolerated this well with no complications. The needle was withdrawn and bandages were placed over the puncture site. On examination after the procedure, 60% pain relief was reported. Plan and Disposition:: I will see the patient back in the office in 2 to 3 weeks reassess her symptoms at that time she is been instructed to call the office if she has any issues prior to her next appointment. Dr. Wayne has reviewed this note and agrees with this plan of care. This note was dictated using voice recognition software and may contain errors or omissions
[2018-09-26 15:13] VITALS: BP 139/82; PULSE 66; RESP 18; O2SAT 98
== END ==
PROVIDERS: PCP Family Medicine; Visit Provider Clinical Nurse Specialist Family Health
DX: M46.1 Sacroiliitis, not elsewhere classified (principal); M70.61 Trochanteric bursitis, right hip
CPT/HCPCS: 20610; 27096; 77002; G0260; J1030; Q9966

== ENCOUNTER → 2018-10-17 10:12 | Outpatient (POV) | payer BC, SELFPAY ==
[2018-10-17 10:25] VITALS: BP 127/95; RESP 18; O2SAT 98; BMI 33.4
--- NOTE | 2018-10-17 10:34 | HMH.PAINSOAP ---
[facility] Pain Management SOAP Note Subjective:: Patient is a pleasant 43-year-old white female who presents today for follow-up after right SI joint injection and right greater trochanteric bursa injection. Patient says that she had 100% relief after the injection. She is feeling much better. She does report, however pain to her lower back. She says that she has had dry needling in the past and this has been very effective for her providing 80% relief. She would like to try this again. She is continuing a home stretching program, along with anti-inflammatories. Review of Systems General: No recent weight changes, no fever, no sleep disturbances Respiratory: No cough, no shortness of air, no recurring pulmonary infections Cardiovascular/peripheral vascular: No chest pain, no palpitations, no edema, no shortness of breath Gastrointestinal: No new onset incontinence, normal bowel movements reported Genitourinary: No new onset incontinence Musculoskeletal: Back pain, hip pain Psychiatric: Normal mood/affect Neurological: [Denies weakness in extremities], [denies balance issues] Objective:: Physical exam General: Alert and oriented x3, no acute distress, pleasant and cooperative, [on room air] Lungs: Respirations even and unlabored, symmetrical chest expansion Eyes: PERRL Musculoskeletal: Flexion and extension of lumbar spine somewhat guarded secondary to pain, deep tendon reflexes normal, strength in upper and lower extremities [5/5], normal gait noted Neurological: Speech clear, 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 Patient would like to follow-up with us as needed. She is been instructed to call the office if she has any issues. We will also continue her on a home stretching program and anti-inflammatories. Dr. Wayne has reviewed this note and agrees with this plan of care. This note was dictated using voice recognition software and make contain errors or omissions.
--- NOTE | 2018-10-17 10:49 | P.CONS_ITS ---
[facility] Pain Management SOAP Note Subjective:: Patient is a pleasant 43-year-old white female who presents today for follow-up after right SI joint injection and right greater trochanteric bursa injection. Patient says that she had 100% relief after the injection. She is feeling much better. She does report, however pain to her lower back. She says that she has had dry needling in the past and this has been very effective for her providing 80% relief. She would like to try this again. She is continuing a home stretching program, along with anti-inflammatories. Review of Systems General: No recent weight changes, no fever, no sleep disturbances Respiratory: No cough, no shortness of air, no recurring pulmonary infections Cardiovascular/peripheral vascular: No chest pain, no palpitations, no edema, no shortness of breath Gastrointestinal: No new onset incontinence, normal bowel movements reported Genitourinary: No new onset incontinence Musculoskeletal: Back pain, hip pain Psychiatric: Normal mood/affect Neurological: [Denies weakness in extremities], [denies balance issues] Objective:: Physical exam General: Alert and oriented x3, no acute distress, pleasant and cooperative, [on room air] Lungs: Respirations even and unlabored, symmetrical chest expansion Eyes: PERRL Musculoskeletal: Flexion and extension of lumbar spine somewhat guarded secondary to pain, deep tendon reflexes normal, strength in upper and lower extremities [5/5], normal gait noted Neurological: Speech clear, 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 Patient would like to follow- up with us as needed. She is been instructed to call the office if she has any issues. We will also continue her on a home stretching program and anti- inflammatories. Dr. Wayne has reviewed this note and agrees with this plan of care. This note was dictated using voice recognition software and make contain errors or omissions.
== END ==
PROVIDERS: PCP Family Medicine; Visit Provider Clinical Nurse Specialist Family Health
DX: M51.16 Intervertebral disc disorders with radiculopathy, lumbar region (principal); M47.816 Spondylosis without myelopathy or radiculopathy, lumbar region; M43.16 Spondylolisthesis, lumbar region
CPT/HCPCS: 99212

== ENCOUNTER 2018-10-24 14:00 | Outpatient (RCR) | payer BC, SELFPAY ==
--- NOTE | 2018-10-24 15:41 | HMH.PTOPEV ---
PT Outpatient Evaluation Rehab PT Outpatient Evaluation Start: 10/24/18 14:10 Freq: Status: Active Protocol: Document 10/24/18 14:11 TONYCHACE (Rec: 10/24/18 15:41 DANYELLE [id number]) Electronically Signed By Janes Manriquez PT 10/24/18 14:11 Outpatient Therapy Subjective History Subjective History This is the initial Physical Therapy evaluation for Saira Jean Baptiste. Pt is a 43 y/o femae referred to PT for c/o chronic LBP. Pt reports she has had LBP for years . Pt reports she has had multiple bouts of physical therapy and recently had L SIJ and L Hip cortizone injxnz @ pain clinic . Pt reports some relief for ~ 2 weeks from injxns but that is decreasing and wearing off . Pt reports no c/o pain into LE's but does note R lateral thigh and knee paresthesia. Chief Complaint Pain,Stiff,Paresthesia Symptom Type Ache,Throb,Sharp,Dull,Numbness Symptoms Relieved By Rest/Positioning,Heat,Ice Symptoms Aggravated By Sitting,Standing,Bending/ Stooping,Twisting,Lifting Prior Functional Limitations Lifting,Housework,Desk Work/ Reading,Driving,Sleeping, Sitting,Recreation Activity, Walking,Bending/Stooping Current Functional Limitations Lifting,Housework,Desk Work/ Reading,Driving,Sleeping, Sitting,Recreation Activity, Walking,Bending/Stooping Symptom Description Constant but Variable Level of pain today (0-10) 3 Pain scale - at its best (0-10) 1 Pain scale - at its worst (0-10) 8 Lumbopelvic Eval Posture Lumbar Spine Posture Standing Position Increased Lordosis Assistive device Assistive Devices None / NA Palapation tenderness bilateral thoracic spinal tenderness No lumbar spinal tenderness Yes paraspinal tenderness Yes buttock tenderness No Lumbar/Sacral Palpation Findings Tenderness,Trigger Point, Muscle Guarding Accessory Movement L2 bilateral L3 bilateral L4 bilateral L5 bilateral Range of Motion Lumbar Spine Active Flexion Range of 80 Motion (degrees) Lumbar Spine Active Extension Ra
== END 2018-10-24 14:05 | disposition home or self-care (01) ==
LOC: PT 14:00
PROVIDERS: Visit Provider Clinical Nurse Specialist Family Health
DX: M54.5 Low back pain (principal)
CPT/HCPCS: 97110; 97140; 97163

== ENCOUNTER → 2019-02-28 09:34 | Outpatient (CLI) | payer BC, SELFPAY ==
--- NOTE | 2019-02-28 09:37 | XR_ITS ---
PROCEDURE: XR FOOT WT BEARING RT 3V CLINICAL INDICATION: red and swollen third toe COMPARISON: FTR3 FOOT-RT-3 VIEWS from 11/28/2012 FINDINGS: No fracture or dislocation. No lytic or blastic change. There is normal mineralization. Minimal osteoarthritic changes are present at the 1st metatarsophalangeal joint with a faint calcification medial to the head of the 1st metatarsal. No bony destructive process. Normal alignment Other findings:None. IMPRESSION: No bony destructive process apparent. Minimal osteoarthritic change 1st metatarsophalangeal junction Dictated by: Praful Teague MD 02/28/2019 11:28 Electronically signed by Praful Teague MD in [place] 02/28/2019 11:28
--- NOTE | 2019-02-28 09:37 | XR_ITS ---
PROCEDURE: XR FOOT WT BEARING LT 3V CLINICAL INDICATION: comparison views COMPARISON: FTR3 FOOT-RT-3 VIEWS from 11/28/2012 XR FOOT WT BEARING RT 3V from 02/28/2019 FINDINGS: No fracture or dislocation. No lytic or blastic change. There is normal mineralization. The joint spaces are well-preserved. No significant degenerative/arthritic changes. No erosive changes evident. Other findings:None. IMPRESSION: No acute findings. Dictated by: Praful Teague MD 02/28/2019 11:29 Electronically signed by Praful Teague MD in [place] 02/28/2019 11:29
== END ==
PROVIDERS: PCP Family Medicine; Visit Provider Nurse Practitioner
DX: L03.031 Cellulitis of right toe
CPT/HCPCS: 73630

== ENCOUNTER → 2019-11-26 11:37 | Outpatient (CLI) | payer BC, SELFPAY ==
[2019-11-26 12:27] LABS: Alanine Aminotransferase 31 U/L (12-78); Albumin Level 4.3 g/dl (3.5-5.0); Albumin/Globulin Ratio 1.3 (1.1-1.8); Alkaline Phosphatase 67 U/L (38-126); Anion Gap 16.5 mEq/L (5-15); Aspartate Amino Transferase 26 U/L (14-36); Bilirubin,Total 0.3 mg/dl (0.2-1.3); Blood Urea Nitrogen 16 mg/dl (7-17); Calcium 10.7 mg/dl (8.4-10.2); Carbon Dioxide 27 mmol/L (22.0-30.0); Chloride 100 mmol/L (98-107); Chol/HDL Ratio 5.8 (1-3.5); Cholesterol 259 mg/dl (140-200); Estimated Glomerular Filt Rate 91 ml/min (>60); GFR (African American) 111 ML/MIN (>60); Globulin 3.3 g/dL (1.3-3.2); Glucose 96 mg/dl (74-100); HDL Cholesterol 45 mg/dl (40-60); Potassium 4.5 mmoL/L (3.5-5.1); Sodium 139 mmol/L (136-145); Total Protein,Serum 7.6 g/dl (6.3-8.2); Triglycerides 206 mg/dl (30-150); VLDL Cholesterol 41 mg/dL (0-40)
[2019-11-26 12:38] LABS: Direct LDL Cholesterol 180.95 mg/dL (100-129)
== END ==
PROVIDERS: Visit Provider Nurse Practitioner Family
DX: I10 Essential (primary) hypertension (principal); E78.2 Mixed hyperlipidemia
CPT/HCPCS: 36415; 80053; 80061

== ENCOUNTER 2019-12-09 19:01 | Emergency (ER) | payer BC, SELFPAY ==
[2019-12-09 19:07] VITALS: BP 150/106; PULSE 80; RESP 20; TEMP 36.8; O2SAT 99; BMI 34.9
--- NOTE | 2019-12-09 19:11 | HMH.EDUTC ---
[facility] [place] Disposition Clinical Impression: Abdominal pain Qualifiers: Abdominal location: unspecified location Qualified Code(s): R10.9 - Unspecified abdominal pain Disposition: Still a Patient Condition on Discharge: Good Referrals: Tom Miller MD [Primary Care Provider] - Time of Disposition: 19:22 Medical Decision Making - Lai Inquiry Pt receiving controlled substance: No Lai was queried for this patient: No Vital Signs: 12/09/19 19:07 Temperature 98.3 F Temperature Source Oral Pulse Rate [Radial] 80 Respiratory Rate 20 Blood Pressure [Right Arm] 150/106 H Blood Pressure Mean [Right Arm] 120 Blood Pressure Source [Right Arm] Automatic Cuff Blood Pressure Position [Right Arm] Sitting 02 Sat by Pulse Oximetry 99 Oxygen Delivery Method Room Air Orders (Tests/Meds): ORDERS Category Date Time Status UA [Urinalysis and Microscopic] Stat Lab 12/09/19 19:11 Ordered Medical Decision Narrative: Patient sitting on exam table holding left lower abdomen area, spoke with patient and reports that she started having pain last night in her left lower abdomen around 10pm and pain has continued to get worse since States pain 8/10 at worse and very uncomfortable at this time. Recommended transfer to ED for further work up and evaluation and patient agreed to transfer. Urine collected by RN called ED patient report given and patient moved to room 9 for further workup and evaluation [facility] [place] HPI - General Stated complaint: L side pain Time Seen by Provider: 12/09/19 19:11 Mode of Arrival: Ambulatory Source of Information: Patient Limitations: No Limitations Description of Symptoms (Recalled from Triage Doc. by RN): left lower abdomen pain that started last night. HEENT Symptoms (Recalled from RN notes): No Resp Symptoms (Recalled from RN notes): No Skin Symptoms (Recalled from RN notes): No MS Symptoms (Recalled from RN notes): No Functional Status (Recalled from RN notes): wnl - History of Present Illness Provider Complaint: Patient states that she started having pain in her left lower abdomen that started last night before bed and has continued to get worse States that she thought at first it may be an ovarian cyst but has never had pain like this before when she had one States that pain today has continued to get worse and hurts worse when she moves and walks States that pain was an 8 at its worse and now hurts to touch her lower abdomen Reports last BM this morning - Related Data Home Medications Medication Instructions Recorded Confirmed Metoprolol Tartrate 50 mg PO BID 06/28/17 07/07/19 Sertraline HCl 25 mg PO DAILY 06/28/17 07/07/19 Triamterene/Hydrochlorothiazid 25 mg PO DAILY 06/28/17 07/07/19 [Maxzide-25 tablet] lisinopriL [Lisinopril 20mg Tab] 20 mg PO DAILY 06/28/17 07/07/19 Tizanidine HCl [Zanaflex] 4 mg PO DAILY 10/14/17 07/07/19 Cetirizine HCl [Zyrtec] 10 mg PO DAILY 09/26/18 07/07/19 montelukast 10 mg tablet 10 mg PO DAILY #90 tab 02/28/19 07/07/19 Previous Rx's Medication Instructions Recorded Azithromycin [Zithromax 250mg 250 mg PO DIRECTED #6 tab 07/07/19 tab] Promethazine/Dextromethorphan 5 ml PO Q6HP PRN #240 ml 07/07/19 [Promethazine-Dm Syrup] predniSONE [Deltasone 20mg 20 mg PO BID 7 Days #14 tab 07/07/19 tablet] Allergies Allergy/AdvReac Type Severity Reaction Status Date / Time Penicillins [PENICILLINS] Allergy Unknown Verified 07/07/19 15:21 - Worker's Comp Is this a Worker's Comp case?: No [facility] History - Hepatitis A Screen Drug use history?: No High risk sexual behaviors?: No History of sexually transmitted infection?: No Currently employed?: No Childcare worker?: No Do you have indoor plumbing?: Yes Do you have electricity?: Yes Attestation statement:: This patient has been screened for Hepatitis A risk factors. I have reviewed the patient's past medical history: Yes Medical History: Reports:: Depression, Heart Murmur,
[2019-12-09 19:18] VITALS: BP 157/106; PULSE 95; RESP 16; TEMP 36.8; O2SAT 99; BMI 34.9
--- NOTE | 2019-12-09 19:23 | CT_ITS ---
PROCEDURE: CT ABDOMEN PELVIS W CON CLINICAL INDICATION: belly pain Left lower quadrant pain COMPARISON: CT LSWO CT LUMBAR SPINE W/O CONTRAST from 03/25/2016 CT ABDPELW/O CT ABD PELVIS W/O CONTRAST from 03/25/2016 TECHNIQUE: IV Contrast: 75ML OPTIRAY 350 Oral Contrast None Axial images obtained with sagittal and coronal reformats. All CT scans at the facility use one or more dose reduction, viz: automated exposure control, ma/kV adjustment per patient size (including targeted exams where dose is matched to indication, i.e. head), or iterative reconstruction technique. FINDINGS: LOWER THORAX: Atelectasis or scarring noted in the right middle lobe and right lung base posteriorly. ABDOMEN & PELVIS: Diffuse fatty liver. Prior cholecystectomy. The spleen, adrenal glands, and pancreas are unremarkable. Unremarkable appearing kidneys. No renal or ureteral calculi. There is scattered small nodes within the central mesenteric axis with slight increased density of the mesentery centrally/aruna mesentery. There is also slight increased density of the mesenteric anterior to the descending colon. There is diverticulosis the colon. No obvious thickened diverticula in the region the mesenteric thickening. No evidence of appendicitis. No intestinal obstruction or free air. There is mild lobularity of the fundus of the uterus which could be due to fibroid involvement. No acute bony finding. There are mild degenerative changes of the thoracic spine. There is a small umbilical hernia containing IMPRESSION: 1. Scattered small nodes in the mesenteries with slight increased density of the central mesenteric fat/aruna mesentery sign which may be seen with mesenteric adenitis among other less common entities. 2. Faint area of increased density of the mesenteric fat anterior to the descending colon without associated thickened diverticula. This may be due to epiploic appendagitis or mesenteric panniculitis Dictated by: Praful Teague MD 12/10/2019 06:50 Praful Teague MD in [place] 12/10/2019 06:50
[2019-12-09 19:34] LABS: Microscopic, Urine URINE MICROSCOPIC (MICROSCOPIC)
[2019-12-09 19:43] LABS: Basophils # 0.1 K/mm3 (0-0.2); Basophils % 0.5 % (0.1-2.0); Eosinophils # 0.5 K/mm3 (0.0-0.4); Eosinophils % 3.3 % (0.1-12.0); Hematocrit 39.2 % (37.0-47.0); Hemoglobin 13.1 g/dL (12.2-16.2); Lymphocytes # 3.9 K/mm3 (0.7-4.5); Lymphocytes % 28.6 % (10-50); Mean Corpuscular HGB Conc 33.4 g/dL (31.8-35.4); Mean Corpuscular Hemoglobin 29.6 pg (27.0-31.2); Mean Corpuscular Volume 88.9 fl (81-99); Mean Platelet Volume 7.4 fl (7.4-10.4); Monocytes # 0.6 K/mm3 (0.1-1.0); Monocytes % 4.2 % (1.7-9.3); Neutrophils # 8.8 K/mm3 (1.8-7.8); Neutrophils % 63.5 % (37.0-80.0); Platelet Count 375 K/mm3 (142-424); Red Blood Count 4.41 M/mm3 (4.20-5.40); Red Cell Distribution Width 13.1 % (11.5-17.5); White Blood Count 13.8 K/mm3 (4.8-10.8)
[2019-12-09 19:44] LABS: Chloride 102 mmol/L (98-107); Potassium 4.2 mmoL/L (3.5-5.1); Sodium 138 mmol/L (136-145)
[2019-12-09 19:46] LABS: Amylase 63 U/L (30-110); Blood Urea Nitrogen 14 mg/dl (7-17); Creatinine Clearance Estimated 171 mL/min (50-200); Estimated Glomerular Filt Rate 91 ml/min (>60); GFR (African American) 111 ML/MIN (>60)
[2019-12-09 19:47] LABS: Alanine Aminotransferase 34 U/L (12-78); Albumin Level 4.2 g/dl (3.5-5.0); Albumin/Globulin Ratio 1.2 (1.1-1.8); Alkaline Phosphatase 70 U/L (38-126); Anion Gap 13.2 mEq/L (5-15); Aspartate Amino Transferase 33 U/L (14-36); Bilirubin,Total 0.3 mg/dl (0.2-1.3); Carbon Dioxide 27 mmol/L (22.0-30.0); Globulin 3.6 g/dL (1.3-3.2); Glucose 98 mg/dl (74-100); Lipase 153 U/L (23-300); Total Protein,Serum 7.8 g/dl (6.3-8.2)
[2019-12-09 19:53] LABS: Appearance,Urine CLEAR (Clear); Bilirubin,Urine Negative (Negative); Blood, Urine Negative (Negative); Color,Urine YELLOW (Yellow); Glucose,Urine (UA) Negative (Negative); Ketones,Urine Negative (Negative); Leukocyte Esterase,Urine Negative (Negative); Nitrate,Urine Negative (Negative); Protein,Urine Negative (Negative); Specific Gravity, Urine 1.025 (1.005-1.030); Urobilinogen,Urine 0.2 EU/dl (0.2)
[2019-12-09 19:57] LABS: Urine Pregnancy, HCG Qual. Negative (Negative)
[2019-12-09 19:59] LABS: Bacteria,Urine Trace /lpf; Squamous Epithelial Cell,Urine Occasional #/hpf (0-5); WBC,Urine Occasional #/hpf (0-3)
--- NOTE | 2019-12-09 20:43 | HMH.EDNVD ---
ED Disposition Clinical Impression: Epiploic appendagitis Abdominal pain Qualifiers: Abdominal location: unspecified location Qualified Code(s): R10.9 - Unspecified abdominal pain Disposition: Home, Self-Care Condition on Discharge: Good Instructions: DI for Acute Abdomen Additional Instructions: advil/tyenol and fluids and see pcp for follow up Referrals: Tom Miller MD [Primary Care Provider] - - Critical Care Critical Care Time: No Attestation: On 12/09/19, the high probability of a clinically significant, sudden or life threatening deterioration of the following system(s) required my full and direct attention, intervention and personal management. The time I documented below is in addition to time spent performing reported procedures but includes the following listed in this critical care notation. Medical Decision Making - Medical Records Medical records reviewed: Yes: I reviewed the patient's medical records. - Lai Inquiry Pt receiving controlled substance: No Vital Signs: 12/09/19 19:07 12/09/19 19:18 Temperature 98.3 F 98.2 F Temperature Source Oral Oral Pulse Rate [Radial] 80 95 H Respiratory Rate 20 16 Blood Pressure [Right Arm] 150/106 H 157/106 H Blood Pressure Mean [Right Arm] 120 123 Blood Pressure Source [Right Arm] Automatic Cuff Automatic Cuff Blood Pressure Position [Right Arm] Sitting Sitting 02 Sat by Pulse Oximetry 99 99 Oxygen Delivery Method Room Air Room Air - Lab Data Lab results reviewed: Yes: I reviewed the patient's lab results. Lab Results 12/09/19 19:25: Urine Color Yellow, Urine Appearance Clear, Urine pH 6.0, Ur Specific [place] 1.025, Urine Protein Negative, Urine Glucose (UA) Negative, Urine Ketones Negative, Urine Blood Negative, Urine Nitrate Negative, Urine Bilirubin Negative, Urine Urobilinogen 0.2, Ur Leukocyte Esterase Negative, Urine WBC Occasional, Ur Squamous Epith Cells Occasional, Urine Bacteria Trace 12/09/19 19:25: WBC 13.8 H, RBC 4.41, Hgb 13.1, Hct 39.2, MCV 88.9, MCH 29.6, MCHC 33.4, RDW 13.1, Plt Count 375, MPV 7.4, Neut % (Auto) 63.5, Lymph % (Auto) 28.6, [place] % (Auto) 4.2, Eos % (Auto) 3.3, Baso % (Auto) 0.5, Neut # (Auto) 8.8 H, Lymph # (Auto) 3.9, [place] # (Auto) 0.6, Eos # (Auto) 0.5 H, Baso # (Auto) 0.1 12/09/19 19:25: Urine HCG, Qual Negative 12/09/19 19:25: Sodium 138, Potassium 4.2, Chloride 102, Carbon Dioxide 27, Anion Gap 13.2, BUN 14, Creatinine 0.70, Estimated Creat Clear 171, Estimated GFR 91, Est GFR ( Amer) 111, Glucose 98, Calcium 10.0, Total Bilirubin 0.3, AST 33, ALT 34, Alkaline Phosphatase 70, Total Protein 7.8, Albumin 4.2, Globulin 3.6 H, Albumin/Globulin Ratio 1.2, Amylase 63, Lipase 153 Result diagrams: 12/09/19 19:25 12/09/19 19:25 Orders (Tests/Meds): ED MEDICATIONS Generic Name Dose Route Start Last Admin Trade Name Freq PRN Reason Stop Dose Admin Sodium Chloride 1,000 mls @ 999 mls/hr 12/09/19 19:45 12/09/19 19:48 Sod Chlor 0.9% 1000ml Bag IV 12/09/19 20:45 999 mls/hr .Q1H1M [place] Administration Sodium Chloride 8 ml 12/09/19 19:42 Sodium Chloride 0.9% 10ml Vial IV 01/08/20 19:41 NEEDED PRN dilute pepcid Discontinued Medications Generic Name Dose Route Start Last Admin Trade Name Freq PRN Reason Stop Dose Admin Famotidine 20 mg 12/09/19 19:42 12/09/19 19:48 Pepcid 20mg/2ml Vial IV 12/09/19 19:43 20 mg ONCE ONE Administration Ioversol 75 ml 12/09/19 20:31 12/09/19 20:31 Rad-Optiray 350 100ml Vial IV 12/09/19 20:32 75 ml ONCE ONE Administration Protocol Ketorolac Tromethamine 30 mg 12/09/19 19:42 12/09/19 19:48 Toradol 30mg/Ml Vial IV 12/09/19 19:43 30 mg ONCE ONE Administration Metoclopramide HCl 10 mg 12/09/19 19:42 12/09/19 19:48 Reglan 10mg/2ml Vial IVP 12/09/19 19:43 10 mg ONCE ONE Administration Ondansetron HCl 4 mg 12/09/19 19:42 12/09/19 19:48 Zofran 4mg/2ml Vial IV 12/09/19 19:43 4 mg
[2019-12-09 20:56] VITALS: BP 156/97; PULSE 97; RESP 17; TEMP 36.8; O2SAT 99
== END 2019-12-09 21:00 | disposition home or self-care (01) ==
LOC: UTC 19:03 → ER 19:14
PROVIDERS: Nurse Practitioner; Emergency Provider Emergency Medicine; PCP Family Medicine
DX: K63.89 Other specified diseases of intestine (principal); E78.5 Hyperlipidemia, unspecified; R01.1 Cardiac murmur, unspecified; F33.1 Major depressive disorder, recurrent, moderate; I10 Essential (primary) hypertension; D64.9 Anemia, unspecified; Z90.49 Acquired absence of other specified parts of digestive tract; Z79.899 Other long term (current) drug therapy; Z88.0 Allergy status to penicillin
CPT/HCPCS: 74177; 80053; 81001; 81025; 82150; 83690; 85025; 96365; 96375; 99283; J2405; Q9967

== ENCOUNTER → 2020-02-11 15:42 | Outpatient (CLI) | payer BC, SELFPAY ==
[2020-02-11 16:11] LABS: Basophils # 0.1 K/mm3 (0-0.2); Basophils % 0.7 % (0.1-2.0); Eosinophils # 0.5 K/mm3 (0.0-0.4); Eosinophils % 4.2 % (0.1-12.0); Hematocrit 40.5 % (37.0-47.0); Hemoglobin 13.6 g/dL (12.2-16.2); Lymphocytes # 3.7 K/mm3 (0.7-4.5); Lymphocytes % 32.1 % (10-50); Mean Corpuscular HGB Conc 33.5 g/dL (31.8-35.4); Mean Corpuscular Hemoglobin 29.7 pg (27.0-31.2); Mean Corpuscular Volume 88.9 fl (81-99); Mean Platelet Volume 7.6 fl (7.4-10.4); Monocytes # 0.6 K/mm3 (0.1-1.0); Neutrophils # 6.7 K/mm3 (1.8-7.8); Platelet Count 427 K/mm3 (142-424); Red Blood Count 4.56 M/mm3 (4.20-5.40); Red Cell Distribution Width 13.3 % (11.5-17.5); White Blood Count 11.6 K/mm3 (4.8-10.8)
== END ==
PROVIDERS: PCP Family Medicine; Visit Provider Nurse Practitioner Family
DX: Z03.818 Encounter for observation for suspected exposure to other biological agents ruled out (principal)
CPT/HCPCS: 36415; 85025; U0003

== ENCOUNTER → 2020-06-17 14:48 | Outpatient (POV) | payer BC, SELFPAY | PROVIDERS: Visit Provider Dermatology | DX: Z00.00 Encounter for general adult medical examination without abnormal findings (principal) ==

== ENCOUNTER → 2020-08-21 15:48 | Outpatient (CLI) | payer BC, SELFPAY | PROVIDERS: PCP Family Medicine; Visit Provider Nurse Practitioner Family | DX: I10 Essential (primary) hypertension (principal); R06.83 Snoring | CPT/HCPCS: G0399 ==

== ENCOUNTER → 2020-09-19 15:13 | Outpatient (CLI) | payer BC, SELFPAY | PROVIDERS: PCP Nurse Practitioner Family; Visit Provider Nurse Practitioner Family | DX: I49.9 Cardiac arrhythmia, unspecified (principal) | CPT/HCPCS: 93225; 93226 ==

== ENCOUNTER → 2022-02-13 13:27 | Outpatient (CLI) | payer BC, SELFPAY ==
[2022-02-13 15:44] LABS: Basophils # 0.2 K/mm3 (0-0.2); Basophils % 1.2 % (0.1-2.0); Eosinophils # 0.4 K/mm3 (0.0-0.4); Eosinophils % 3.2 % (0.1-12.0); Hematocrit 41.4 % (37.0-47.0); Hemoglobin 13.4 g/dL (12.2-16.2); Lymphocytes # 3.6 K/mm3 (0.7-4.5); Mean Corpuscular HGB Conc 32.4 g/dL (31.8-35.4); Mean Corpuscular Hemoglobin 29.3 pg (27.0-31.2); Mean Corpuscular Volume 90.4 fl (81-99); Mean Platelet Volume 8.1 fl (7.4-10.4); Monocytes # 0.6 K/mm3 (0.1-1.0); Monocytes % 4.7 % (1.7-9.3); Neutrophils # 8.2 K/mm3 (1.8-7.8); Platelet Count 470 K/mm3 (142-424); Red Blood Count 4.59 M/mm3 (4.20-5.40)
[2022-02-13 15:54] LABS: Strep Scrn Group A (Rapid) Negative (Negative)
== END ==
PROVIDERS: PCP Family Medicine; Visit Provider Family Medicine
DX: Z20.822 Contact with and (suspected) exposure to COVID-19 (principal)
CPT/HCPCS: 36415; 85025; 87275; 87276; 87430; C9803; U0003; U0005

== ENCOUNTER 2022-06-26 09:24 | Emergency (ER) | payer BC, SELFPAY ==
[2022-06-26 09:25] VITALS: BP 157/95; PULSE 79; RESP 17; TEMP 36.6; O2SAT 99; BMI 34.9
--- NOTE | 2022-06-26 09:38 | PC.NURSE ---
ED MD AT BEDSIDE
--- NOTE | 2022-06-26 09:42 | CT_ITS ---
PROCEDURE INFORMATION: Exam: CT Abdomen And Pelvis With Contrast Exam date and time: 06/26/2022 10:34 AM Age: 46 years old Clinical indication: Abdominal pain; Prior surgery; Surgery date: 6+ months; Surgery type: Uterine abrasion, cholecystectomy; Patient HX: Rlq pain radiating distally to RT leg, w diarrhea x 4 days. Nonsmoker; Additional info: 4 days rlq pain TECHNIQUE: Imaging protocol: Computed tomography of the abdomen and pelvis with contrast. Radiation optimization: All CT scans at this facility use at least one of these dose optimization techniques: automated exposure control; mA and/or kV adjustment per patient size (includes targeted exams where dose is matched to clinical indication); or iterative reconstruction. Contrast material: ISOVUE; Contrast volume: 70 ml; Contrast route: IV; REPORTING DATA: Count of CT and Cardiac NM exams in prior 12 months: This patient has received 0 known CTs and 0 known cardiac nuclear medicine studies in the 12 months prior to the current study. COMPARISON: CT ABDOMEN PELVIS W CON 12/09/2019 8:16 PM FINDINGS: Lungs: No consolidation, lung nodules, or pleural effusions. Liver: Diffuse low density throughout the liver, Hounsfield units less than 55. No liver masses. Gallbladder and bile ducts: Gallbladder is surgically absent. No biliary ductal dilatation. Pancreas: Normal. No ductal dilation. Spleen: 1.6 cm accessory splenule adjacent to the anterior mid spleen. No splenomegaly, masses, or surrounding fluid. Adrenal glands: Normal. No mass. Kidneys and ureters: Normal. No hydronephrosis, calcified stones, or masses. Stomach and bowel: Colon volume is small. No intestinal masses, bowel wall thickening, or abnormal luminal dilatation. Appendix: No evidence of appendicitis. Intraperitoneal space: No free air. No masses or significant fluid collection. Vasculature: No abdominal aortic aneurysm. No other significant abnormalities. Lymph nodes: No enlarged lymph nodes. Urinary bladder: No significant wall thickening. Reproductive: Anteverted uterus is appropriate in size and shape and has several small hypodense fibroids. No adnexal masses or free fluid. Bones/joints: Mild multilevel degenerative disc disease in the lumbar spine with concentric disc bulge at L4-L5 that causes no significant stenosis. Soft tissues: No masses or other abnormalities. IMPRESSION: 1. No GI tract abnormalities. Colon volume is small. 2. No acute abnormalities in the abdomen and pelvis thought to be a source of right lower quadrant pain. No evidence of appendicitis. 3. Fat deposition in the liver. No liver masses. 4. Several small uterine fibroids. 5. Degenerative disc disease in the lumbar spine causes no significant mass effects.
[2022-06-26 09:47] LABS: Microscopic, Urine URINE MICROSCOPIC (MICROSCOPIC)
[2022-06-26 09:51] LABS: Basophils # 0.1 K/mm3 (0-0.2); Basophils % 1.2 % (0.1-2.0); Eosinophils # 0.6 K/mm3 (0.0-0.4); Eosinophils % 5.4 % (0.1-12.0); Hematocrit 44.7 % (37.0-47.0); Hemoglobin 14.8 g/dL (12.2-16.2); Lymphocytes # 3.3 K/mm3 (0.7-4.5); Mean Corpuscular HGB Conc 33.1 g/dL (31.8-35.4); Mean Corpuscular Hemoglobin 29.9 pg (27.0-31.2); Mean Corpuscular Volume 90.4 fl (81-99); Mean Platelet Volume 7.9 fl (7.4-10.4); Monocytes # 0.6 K/mm3 (0.1-1.0); Monocytes % 5.4 % (1.7-9.3); Platelet Count 506 K/mm3 (142-424); Red Blood Count 4.95 M/mm3 (4.20-5.40); Red Cell Distribution Width 12.9 % (11.5-17.5); White Blood Count 10.5 K/mm3 (4.8-10.8)
[2022-06-26 09:51] LABS: Appearance,Urine CLEAR (Clear); Bilirubin,Urine Negative (Negative); Blood, Urine 3+ (Negative); Color,Urine YELLOW (Yellow); Glucose,Urine (UA) Negative (Negative); Ketones,Urine Negative (Negative); Leukocyte Esterase,Urine Negative (Negative); Nitrate,Urine Negative (Negative); Protein,Urine Negative (Negative); Urobilinogen,Urine 0.2 EU/dl (0.2)
[2022-06-26 09:52] LABS: Chloride 103 mmol/L (98-107); Potassium 3.7 mmoL/L (3.5-5.1); Sodium 138 mmol/L (136-145)
[2022-06-26 09:55] LABS: Alanine Aminotransferase 38 U/L (12-78); Albumin Level 4.8 g/dl (3.5-5.0); Albumin/Globulin Ratio 1.3 (1.1-1.8); Alkaline Phosphatase 55 U/L (38-126); Anion Gap 13.7 mEq/L (5-15); Aspartate Amino Transferase 33 U/L (14-36); Bilirubin,Total 0.4 mg/dl (0.2-1.3); Blood Urea Nitrogen 13 mg/dl (7-17); Carbon Dioxide 25 mmol/L (22.0-30.0); Creatinine Clearance Estimated 146 mL/min (50-200); Estimated Glomerular Filt Rate 78 ml/min (>60); GFR (African American) 94 ML/MIN (>60); Globulin 3.7 g/dL (1.3-3.2); Total Protein,Serum 8.5 g/dl (6.3-8.2)
[2022-06-26 09:56] LABS: Calcium 9.6 mg/dl (8.4-10.2); Glucose 102 mg/dl (74-100); Lipase 135 U/L (23-300)
[2022-06-26 10:01] LABS: C-Reactive Protein 15.3 mg/L (0-4)
--- NOTE | 2022-06-26 10:05 | HMH.EDGENADL ---
Discharge Plan Disposition Patient Disposition: Home, Self-Care Condition: Good Prescriptions Prescriptions: New ibuprofen 800 mg tablet 800 mg PO Q6H PRN (Reason: pain) Qty: 30 0RF ondansetron 4 mg tablet,disintegrating 4 mg PO Q6H PRN (Reason: nausea and vomiting) Qty: 10 0RF No Action montelukast [Singulair] 10 mg tablet 10 mg PO DAILY rosuvastatin 20 mg tablet 20 mg PO DAILY fluticasone propion-salmeterol [Advair Diskus] 100-50 mcg/dose blister with device 1 inh INHALATION BID Arnuity Ellipta 100 mcg/actuation blister with device 1 inh INHALATION PRN lisinopril 20 MG tablet 20 mg PO DAILY Label Comments: metoprolol tartrate 50 MG tablet 50 mg PO BID triamterene-hydrochlorothiazid 37.5-25 mg tablet 1 tab PO DAILY Label Comments: TAKE 1 TABLET BY MOUTH ONCE DAILY Referrals Follow up/Referrals: Tom Mliler MD [Primary Care Provider] - See instructions Activity Restrictions/Add. Instructions Additional Instructions/Restrictions: Your CT scan and labs were normal. Take the zofran and ibuprofen as needed. Return to the ED with worsening pain or concerns. Clinical Impressions Clinical Impression: Abdominal pain Instructions Patient Instructions: DI for Acute Abdominal Pain Discharge ED Provider: Mariana Reynolds General Adult HPI General Chief complaint: Abdominal Pain Stated complaint: Sever right abdominal side pain Time Seen by Provider: 06/26/22 09:45 Mode of Arrival: Ambulatory Limitations: No Limitations Description of Symptoms (Recalled from ER Triage Doc. by RN): PT REPORTS RLQ ABDOMINAL PAIN X 4 DAYS, PAIN INCREASED X 2 DAYS. STABBING PAIN AT WORST, CONSTANT DULL PAIN. REPORTS CHANGE IN DIARRHEA, STARTED PERIOD ABOUT 2 DAYS AGO. DENIES FEVER. History of Present Illness HPI narrative: The patient is a 46 year old female with a history of Crohn's in remission and uterine ablation who presents to the ED with RLQ pain. The patient states this has been going on for the past 4 days. It started with mild intensity but has slowly worsened over the last 4 days, and now is waxing and waning but always present. She started her menstrual period today. Denies urinary symptoms. Denies vomiting, mild amount of diarrhea. No chest pain. No fever. No sick contacts. No chest pain or shortness of breath. She tried motrin for her pain as well as midol without relief. Related Data Home Medications Medication Instructions Recorded Confirmed lisinopril 20 mg tablet 20 mg PO DAILY High blood pressure 06/28/17 02/25/21 metoprolol tartrate 50 mg tablet 50 mg PO BID High blood pressure 06/28/17 02/25/21 triamterene 37.5 1 tab PO DAILY High blood pressure 12/09/19 02/25/21 mg-hydrochlorothiazide 25 mg tablet fluticasone 100 mcg-salmeterol 50 1 inh inhalation BID 09/10/20 02/25/21 mcg/dose blistr powdr for inhalation (Advair Diskus) montelukast 10 mg tablet 10 mg PO DAILY 09/10/20 02/25/21 (Singulair) rosuvastatin 20 mg tablet 20 mg PO DAILY 09/10/20 02/25/21 fluticasone furoate 100 1 inh inhalation PRN 02/25/21 02/25/21 mcg/actuation blister powder for inhalation (Arnuity Ellipta) Previous Rx's Medication Instructions Recorded ibuprofen 800 mg tablet 800 mg PO Q6H PRN pain #30 tabs 06/26/22 ondansetron 4 mg disintegrating 4 mg PO Q6H PRN nausea and 06/26/22 tablet vomiting #10 tabs Allergies Allergy/AdvReac Type Severity Reaction Status Date / Time Penicillins [PENICILLINS] Allergy Unknown Verified 02/25/21 15:42 [facility] Disclaimer: The information contained in this section may have been updated after the patient was seen, as this information can be updated by other users. Medical History (Updated 06/26/22 @ 11:24 by Mariana Reynolds MD) Crohn's disease Surgical History (Updated 06/26/22 @ 10:28 by Sobeida Mckee RN) History of cholecystectomy S/P endometrial ablation Family History (Updated
[2022-06-26 10:13] LABS: Amorphous Sediment,Urine 3+ /lpf; Bacteria,Urine Trace /lpf; RBC,Urine 20-50 #/hpf (0-3); Squamous Epithelial Cell,Urine Occasional #/hpf (0-5); WBC,Urine Occasional #/hpf (0-3)
[2022-06-26 10:13] LABS: HCG Qualitative, Serum Negative (Negative)
--- NOTE | 2022-06-26 10:19 | PC.NURSE ---
Pt updated on plan of care. Slight improvement with medications. Pt awaiting CT scan. No further complaints at this time.
--- NOTE | 2022-06-26 10:28 | PC.NURSE ---
PT TO CT AT THIS TIME
--- NOTE | 2022-06-26 10:38 | PC.NURSE ---
PT RETURNED FROM CT
--- NOTE | 2022-06-26 10:45 | PC.NURSE ---
ROUNDED ON PT, NO NEEDS AT THIS TIME. REPORTS SOME IMPROVEMENT FROM TORADOL
--- NOTE | 2022-06-26 10:47 | PC.NURSE ---
Dr Raymond speaking with [facility]
--- NOTE | 2022-06-26 10:50 | PC.NURSE ---
checked on pt at this time. pt resting in bed, family at BS, states no needs at this time, call light in reach
[2022-06-26 11:00] VITALS: BP 138/90; PULSE 70; RESP 17; O2SAT 99
--- NOTE | 2022-06-26 11:00 | PC.NURSE ---
Rounded on patient and family members; call light within reach
--- NOTE | 2022-06-26 11:19 | PC.NURSE ---
ISAIAS GARCIA at discussing results
[2022-06-26 11:32] VITALS: BP 138/90; PULSE 66; RESP 16; TEMP 36.6; O2SAT 98
== END 2022-06-26 11:34 | disposition home or self-care (01) ==
PROVIDERS: Emergency Provider Emergency Medicine; PCP Family Medicine
DX: R10.31 Right lower quadrant pain (principal); Z87.19 Personal history of other diseases of the digestive system; Z87.42 Personal history of other diseases of the female genital tract; Z90.49 Acquired absence of other specified parts of digestive tract
CPT/HCPCS: 74177; 80053; 81001; 83690; 84703; 85025; 86140; 96361; 96374; 96375; 99284; 99285; J2405; Q9967

== ENCOUNTER → 2022-11-08 09:58 | Outpatient (CLI) | payer BC, SELFPAY ==
--- NOTE | 2022-11-08 10:17 | US_ITS ---
FINAL REPORT TECHNIQUE: Ultrasound soft tissues of neck CLINICAL HISTORY: KNOT FINDINGS: Ultrasound neck soft tissue: The visualized portions of the submandibular and parotid glands are unremarkable in appearance. There are subcutaneous nodes, none of which are increased in size by imaging criteria, the largest in the right side of the neck measuring 14 x 7 mm in size. No other focal masses identified by ultrasound exam. IMPRESSION: Multiple subcutaneous cervical nodes identified, none increased by imaging criteria as described above. Reviewed, Interpreted and Dictated by Tom Lima MD Transcribed by Zuleyka Santamaria Authenticated and . [facility]
== END ==
LOC: RAD 09:59
PROVIDERS: PCP Family Medicine; Visit Provider Physician Assistant
DX: R59.1 Generalized enlarged lymph nodes (principal)
CPT/HCPCS: 76536

== ENCOUNTER → 2023-04-14 11:32 | Outpatient (CLI) | payer BC, SELFPAY ==
[2023-04-20 00:08] LABS: Pancreatic Elastase, Fecal 417 (>200)
== END ==
LOC: LAB.DROPOF 11:33
PROVIDERS: PCP Family Medicine; Visit Provider Nurse Practitioner Family
DX: K58.9 Irritable bowel syndrome, unspecified (principal); R14.0 Abdominal distension (gaseous)
CPT/HCPCS: 82656

== ENCOUNTER 2023-12-11 16:43 | Emergency (ER) | payer BC, SELFPAY ==
--- NOTE | 2023-12-11 17:13 | EXP.UTC ---
Discharge Plan Disposition Patient Disposition: Home, Self-Care Condition: Good Prescriptions Prescriptions: New azithromycin [Zithromax] 250 mg tablet 250 mg PO UD DOSE PK Qty: 6 0RF Rx Instructions: Take two (2) tablets today, then one (1) tablet days #2 thru #5 benzonatate 100 mg capsule 100 mg PO TIDP PRN (Reason: Cough) Qty: 30 0RF methylprednisolone 4 mg Tablets,Dose Pack 4 mg PO DIRECTED 6 Days Qty: 21 0RF Rx Instructions: Take 1 pack as directed for 6 days No Action montelukast [Singulair] 10 mg tablet 10 mg PO DAILY sertraline 50 mg tablet 50 mg PO ONCE lisinopril 20 MG tablet 20 mg PO DAILY Patient Comments: metoprolol tartrate 50 mg tablet 50 mg PO DAILY Rx Instructions: 75 mg at hs ibuprofen 800 mg tablet 800 mg PO Q6H PRN (Reason: pain) Qty: 30 0RF ondansetron 4 mg tablet,disintegrating 4 mg PO Q6H PRN (Reason: nausea and vomiting) Qty: 10 0RF triamterene-hydrochlorothiazid 37.5-25 mg tablet 1 tab PO DAILY Patient Comments: TAKE 1 TABLET BY MOUTH ONCE DAILY Referrals Follow up/Referrals: William Miller MD [Primary Care Provider] - See instructions Activity Restrictions/Add. Instructions Additional Instructions/Restrictions: Drink plenty of fluids. Take tylenol or ibuprofen for pain or fever. Take the medications as directed. Follow up with your regular doctor. GO TO THE ER FOR ANY WORSENING SYMPTOMS Clinical Impressions Clinical Impression: Acute viral syndrome, Pharyngitis Stand Alone Forms Stand Alone Forms: Work/School Release Instructions Patient Instructions: DI for Pharyngitis/Tonsillopharyngitis -- Adult, DI for Viral Syndrome Print Language Print Language: Greenlandic Discharge ED Provider: Good Sosa [facility] General Stated complaint: fever 102,cough,congestion Time Seen by Provider: 12/11/23 17:12 Related Data Home Medications ?Medication ?Instructions ?Recorded ?Confirmed lisinopril 20 mg tablet 20 mg PO DAILY High blood pressure 06/28/17 10/07/22 triamterene 37.5 1 tab PO DAILY High blood pressure 12/09/19 10/07/22 mg-hydrochlorothiazide 25 mg tablet montelukast 10 mg tablet 10 mg PO DAILY 05/26/21 06/22/23 (Singulair) metoprolol tartrate 50 mg tablet 50 mg PO DAILY High blood pressure 10/07/22 10/07/22 sertraline 50 mg tablet 50 mg PO ONCE 10/07/22 10/07/22 Previous Rx's ?Medication ?Instructions ?Recorded ibuprofen 800 mg tablet 800 mg PO Q6H PRN pain #30 tabs 06/26/22 ondansetron 4 mg disintegrating 4 mg PO Q6H PRN nausea and 06/26/22 tablet vomiting #10 tabs azithromycin 250 mg tablet 250 mg PO UD DOSE PK #6 tabs 12/11/23 (Zithromax) benzonatate 100 mg capsule 100 mg PO TIDP PRN Cough #30 caps 12/11/23 methylprednisolone 4 mg tablets in 4 mg PO DIRECTED 6 days #21 tabs 12/11/23 a dose pack Allergies Allergy/AdvReac Type Severity Reaction Status Date / Time Penicillins [PENICILLINS] Allergy Unknown Verified 10/07/22 09:24 [facility] Disclaimer: The information contained in this section may have been updated after the patient was seen, as this information can be updated by other users. 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
[2023-12-11 17:18] VITALS: BP 164/108; PULSE 122; RESP 18; TEMP 37.6; O2SAT 97; BMI 34.9
[2023-12-11 17:42] LABS: Coronavirus 19, PCR Not Detected (NotDetected); Influenza A, PCR Not Detected (NotDetected); Influenza B, PCR Not Detected (NotDetected)
[2023-12-11 18:00] VITALS: BP 150/102; PULSE 115; RESP 18; TEMP 37.6; O2SAT 97
== END 2023-12-11 18:00 | disposition home or self-care (01) ==
PROVIDERS: Emergency Provider Nurse Practitioner Family; PCP Psychiatry & Neurology Sleep Medicine
DX: J02.9 Acute pharyngitis, unspecified (principal); R50.9 Fever, unspecified; R05.9 Cough, unspecified; B34.9 Viral infection, unspecified
CPT/HCPCS: 87636; 99204; 99212; G0463

== ENCOUNTER 2023-12-22 15:57 | Outpatient (CLI) | payer BC, SELFPAY ==
--- NOTE | 2023-12-22 16:04 | XR_ITS ---
FINAL REPORT CLINICAL HISTORY: BRONCHITIS x 2 weeks FINDINGS: Two views of the chest were obtained. The heart size and pulmonary vascularity are within normal limits. The mediastinum is normal. No acute pulmonary abnormality is identified. There is no pneumothorax. The bony thorax is intact. IMPRESSION: No active cardiopulmonary disease. Reviewed, Interpreted and Dictated by Jaquan Green III, MD Transcribed by Kinjal Kapoor Authenticated and [facility]
== END 2023-12-22 23:59 | disposition home or self-care (01) ==
LOC: RAD 15:58
PROVIDERS: PCP Family Medicine; Visit Provider Physician Assistant
DX: J40 Bronchitis, not specified as acute or chronic (principal)
CPT/HCPCS: 71046

== ENCOUNTER 2024-03-23 10:31 | Outpatient (CLI) | payer BC, SELFPAY ==
[2024-03-23 11:11] LABS: Chol/HDL Ratio 5.8 (1-3.5); Cholesterol 226 mg/dl (140-200); HDL Cholesterol 39 mg/dl (40-60); Triglycerides 184 mg/dl (30-150); VLDL Cholesterol 37 mg/dL (0-40)
[2024-03-23 11:22] LABS: Direct LDL Cholesterol 154.93 mg/dL (100-129)
== END 2024-03-23 23:59 | disposition home or self-care (01) ==
LOC: LAB 10:32
PROVIDERS: PCP Family Medicine; Visit Provider Nurse Practitioner Family
DX: E78.00 Pure hypercholesterolemia, unspecified (principal)
CPT/HCPCS: 36415; 80061

== ENCOUNTER 2024-05-18 14:22 | Outpatient (CLI) | payer BC, SELFPAY ==
--- NOTE | 2024-05-18 14:25 | US_ITS ---
PROCEDURE INFORMATION: Exam: US Right Breast, Complete Exam date and time: 05/18/2024 2:25 PM Age: 48 years old Clinical indication: Mass, lump, or swelling; Right; Breast abscess TECHNIQUE: Imaging protocol: Complete ultrasound of all four quadrants of the right breast and the retroareolar regions, including ultrasound of the axilla when performed. COMPARISON: MG SCBI MM Dig screening mamm BI w/CAD 10/20/2017 8:40 AM FINDINGS: ULTRASOUND: Breast ultrasound findings: Sonographic images of the right breast including the retroareolar region, all 4 quadrants and the axilla demonstrates an ovoid hypoechoic mass in the deep 2 o'clock axis 2 cm from the nipple measuring 1.1 x 1.1 x 0.5 cm. In the right 4 o'clock axis 12 cm from the nipple where the patient reports a palpable abnormality demonstrates a cutaneous mixed echotexture well-circumscribed ovoid mass measuring 1.6 x 0.5 x 1.6 cm in dimension. The overlying skin is abnormally thickened and the findings likely correlates with the clinical statement of a right breast abscess. This however is cutaneous in location and not within the underlying breast tissue. No axillary adenopathy. IMPRESSION: 1. Palpable abnormality in the right breast corresponds to a cutaneous lesion likely reflecting an inflamed or possibly an infected sebaceous cyst. Surgical consultation for potential incision and drainage is recommended. 2. Sonographically detected mass in the deep right 2 o'clock axis. A diagnostic bilateral mammogram is recommended for further evaluation ASSESSMENT: BI-RADS Category 0: Incomplete- Need Additional Imaging Evaluation
== END 2024-05-18 23:59 | disposition home or self-care (01) ==
LOC: RAD 14:22
PROVIDERS: PCP Family Medicine; Visit Provider Physician Assistant
DX: N61.1 Abscess of the breast and nipple (principal)
CPT/HCPCS: 76641

== ENCOUNTER 2024-06-05 15:07 | Outpatient (CLI) | payer BC, SELFPAY ==
--- NOTE | 2024-06-05 15:12 | MM_ITS ---
PROCEDURE INFORMATION: Exam: MG Right Diagnostic Breast Tomosynthesis Exam date and time: 06/05/2024 3:19 PM Age: 48 years old Clinical indication: Called back for diagnostic mammogram of the right breast due to a palpable lump recommended on 05/18/2024. Apparently the patient deferred left mammogram because she were ordered a recent screening mammogram at different facility TECHNIQUE: Imaging protocol: Right Diagnostic tomosynthesis and 2D mammography including computer-aided detection (CAD) when performed. Unilateral or bilateral exam. COMPARISON: 1. MG SCBI MM Dig screening mamm BI w/CAD 10/20/2017 8:40 AM 2. US BREAST RT COMPLETE 05/18/2024 2:25 PM FINDINGS: MAMMOGRAPHY: Breast composition: There are scattered areas of fibroglandular density. Breast mammogram findings: No new mass, architectural distortion, or suspicious cluster of calcifications has developed to suggest malignancy. No axillary adenopathy. IMPRESSION: Upon review of 05/18/2024 ultrasound, a 2 o'clock 1.1 cm right breast mass is present. Six-month follow-up targeted ultrasound is recommended to assure stability. This may reflect a benign fibroadenoma No mammographic evidence of malignancy. Recommend annual screening mammography unless otherwise clinically indicated. ASSESSMENT: BI-RADS category 3: Probably benign
== END 2024-06-05 23:59 | disposition home or self-care (01) ==
LOC: RAD 15:09
PROVIDERS: PCP Family Medicine; Visit Provider Physician Assistant
DX: R92.8 Other abnormal and inconclusive findings on diagnostic imaging of breast (principal)
CPT/HCPCS: 77061; 77065; G0279

== ENCOUNTER 2024-06-27 15:11 | Outpatient (CLI) | payer BC, SELFPAY ==
--- NOTE | 2024-06-27 | CA_ITS ---
FINAL REPORT TECHNIQUE: Right lower extremity venous duplex was performed with augmentation and compression. CLINICAL HISTORY: Medial right calf pain with localized discoloration COMPARISON: None FINDINGS: Proper flow is seen throughout the right lower extremity deep venous system. There is no evidence of deep venous thrombosis. IMPRESSION: no deep venous thrombosis. Reviewed, Interpreted and Dictated by Thomas Malagon MD Transcribed by Zuleyka Santamaria Authenticated and [facility]
== END 2024-06-27 23:59 | disposition home or self-care (01) ==
LOC: RT 15:14
PROVIDERS: PCP Family Medicine; Visit Provider Physician Assistant
DX: M79.89 Other specified soft tissue disorders (principal); M79.661 Pain in right lower leg
CPT/HCPCS: 93971

== ENCOUNTER 2024-06-29 14:29 | Outpatient (CLI) | payer BC, SELFPAY ==
[2024-06-29 14:39] LABS: Coronavirus 19, PCR Not Detected (NotDetected); Influenza B, PCR Not Detected (NotDetected)
[2024-06-29 15:33] LABS: Influenza A, PCR Detected (NotDetected)
== END 2024-06-29 23:59 | disposition home or self-care (01) ==
LOC: LAB 14:30
PROVIDERS: PCP Physician Assistant; Visit Provider Physician Assistant
DX: J06.9 Acute upper respiratory infection, unspecified (principal)
CPT/HCPCS: 87636

== ENCOUNTER 2024-09-11 08:18 | Outpatient (CLI) | payer BC, SELFPAY ==
--- NOTE | 2024-09-11 | CA_ITS ---
FINAL REPORT TECHNIQUE: Arterial duplex Doppler evaluation of the right lower extremity with spectral analysis. CLINICAL HISTORY: PERSISTANT ,RIGHT LEG EDEMA WITH A NEGATIVE VENOUS 1 WEEK PREVIOUS , HTN FINDINGS: Right lower extremity, flow velocities (cm per second): Common femoral artery: 108 Profunda: 72 Proximal SFA: 123 Mid SFA: 91 Distal SFA: 67 Posterior tibial artery proximal: 60 Posterior tibial artery distal: 63 Anterior tibial artery mid: 65 Peroneal artery proximal: 63 IMPRESSION: Waveforms are noted to be triphasic. No levels of stenosis or occlusion are identified. Reviewed, Interpreted and Dictated by Thomas Malagon MD Transcribed by Kinjal Kapoor Authenticated and [facility]
== END 2024-09-11 23:59 | disposition home or self-care (01) ==
LOC: RT 08:18
PROVIDERS: PCP Physician Assistant; Visit Provider Physician Assistant
DX: M79.604 Pain in right leg (principal); I10 Essential (primary) hypertension; R60.9 Edema, unspecified
CPT/HCPCS: 93926

== ENCOUNTER 2024-10-15 11:01 | Outpatient (RCR) | payer BC, SELFPAY ==
--- NOTE | 2024-10-15 16:32 | HMH.OPLYMPH ---
Rehab Inpt Wound Evaluation Rehab OP Lymphedema Evaluation Start: 10/15/24 16:23 Freq: Status: Active Protocol: Document 10/15/24 16:23 DARYL (Rec: 10/15/24 16:31 PHORSABRINA [id number]) E-signed By Didier Larsen, PT Subjective/History History History This is the initial PT lymphedema eval for Saira Jean Baptiste, 49 yowf who presents with c/o R LE edema increased x ~ 4 mos with insidious onset of symptoms. She reports she underwent a surgery to remove a cyst from her breast and her edema began shortly after that with increased appearance of varicose veins noted to the same leg. She reports feeling of heaviness and difficulty with donning clothes. She has PMH of Crohn's disease, IBS, CCY, chronic LBP with DDD, ZANA. Subjective Subjective Currently she reports 0/10 pain in the R LE, 1/10 pain at worst. 2/4 TTP noted on medial R lower leg and ankle . No pitting edema at this time, but MILD fibrotic edema to R lower leg noted. Lymphedema Eval Classification of Lymphedema Secondary Lymphedema Yes Stemmer's sign Stemmer's Sign no Stage of Lymphedema Lymphedema stages Stage 0 (subjective c/o heaviness and aching) Skin Changes Dry Skin Yes Taut, Shiny Skin Yes Discoloration of Yes Skin Other Changes Yes Pain Scale Pain Scale (0-10) 1 Affected Extremities Areas Affected by Right Lower Extremity Lymphedema/Edema Lower Extremity Measurements Right MTP Measurement (cm) 24.7 Heel Measurement (cm 33.4 ) 10 cm Proximal to 28.3 Lateral Malleoli Measurement (cm) 20 cm Proximal to 39.7 Lateral Malleoli Measurement (cm) 30 cm Proximal to 43.1 Lateral Malleoli Measurement (cm) 40 cm Proximal to 38.8 Lateral Malleoli Measurement (cm) 50 cm Proximal to 0 Lateral Malleoli Measurement (cm) 60 cm Proximal to 0 Lateral Malleoli Measurement (cm) Lower Extremity 208.0 Measurement Total ( cm) Manual Lymphatic Drainage Treatment Area MLD Treatment Area Right Lower Extremity Wound Problems/Impairments Impairments Problems/ Palpation Tenderness,Impaired Endurance,Impaired Impairmments Walking,Impaired Standing,Impaired Dressing,Impaired Household Care,Increased Edema,Lymphedema Present, Subjective C/O Pain,Impaired Self Care/Self Management Prognosis Rehab Potential Good Comment Skilled therapy is indicated to reduce overall lymphedema in order to return pt to PLOF with all daily activities. Clinical Impression Consistent with Yes Diagnosis Short Term Goals Number of Weeks 2 Decreased Palpation Yes: 1 R LE Tenderness Decrease Girth Yes: R LE total by 5 cm Measurments by (cm) Pomology Teacher Goals Number of Weeks 4 Decreased Palpation Yes: 0/4 R LE Tenderness Decrease Lymphedema Yes: No fibrotic edema R LE Decrease Subjective Yes: 010 R LE C/O Pain Patient to be Ind w/ Yes Advanced HEP Decrease Girth Yes: R LE total by 15 cm Measurments by (cm) Outpatient Therapy Plan of Care Treatment Plan May Include Therapeutic Exercise Yes Including Home Exercise Program Manual Therapy Yes Techniques Neuromuscular Re- Yes education Therapeutic Yes Activities to Return to Previous Functional/Work Level ADL/Self Care Yes Education Orthotics/Bracing/ Yes Splinting Manual Lymphatic Yes Drainage Eval/Re-Eval Yes Frequency Times per week 2 Duration Number of Weeks 4 Addendums This patient is a No candidate for social or vocational rehab ? Patient/Guardian Yes verbally acknowledges understanding of treatment program and consents to further treatment? Patient/Guardian Yes verbally acknowledges understanding of diagnosis, prognosis and goals for treatment? Eval Complexity PT Charges 01581 - High Complexity PHYSICIAN CERTIFICATION: I certify the specified therapy services for Saira Jean Baptiste are required, authorized, and reviewed every 30 days.
== END 2024-10-15 23:59 | disposition home or self-care (01) ==
LOC: PT 11:01
PROVIDERS: PCP Physician Assistant; Visit Provider Family Medicine
DX: M79.89 Other specified soft tissue disorders (principal); I89.0 Lymphedema, not elsewhere classified
CPT/HCPCS: 97140; 97163

== ENCOUNTER 2024-10-23 08:02 | Outpatient (RCR) | payer BC, SELFPAY | END 2024-10-23 23:59 | disposition home or self-care (01) | LOC: PT 08:02 | PROVIDERS: PCP Physician Assistant; Visit Provider Family Medicine | DX: M79.89 Other specified soft tissue disorders (principal); I89.0 Lymphedema, not elsewhere classified | CPT/HCPCS: 97140 ==

== ENCOUNTER 2024-10-25 14:01 | Outpatient (CLI) | payer BC, SELFPAY ==
--- OUTSIDE RECORDS SUMMARY | 2024-10-25 14:12 | XMS_ITS | Clinical Summary ---
Author Organization Healthcare Address [address] [place] [address] Care Team Providers Care Boring Machine Operator Vertical Name Role Phone Pcp, No Primary Care Provider Unavailabl e Allergies Active Allergy Reactions Criticality Noted Date Comments Penicillins Rash Low 08/05/2016 .pcnallergydetails Medications lisinopril 20 MG tablet Take 20 mg by mouth 1 (one) time each day. 2 Active metoprolol succinate XL (Toprol-XL) 50 MG 24 hr tablet Take 1 tablet (50 mg) by mouth. 2 Active sertraline (Zoloft) 50 MG tablet Take 1 tablet (50 mg) by mouth 1 (one) time each day. 3 Active triamterene-hyd rochlorothiazid e (Maxzide-25) 37.5-25 MG tablet Take 1 tablet by mouth 1 (one) time each day. 3 Active colestipol (Colestid) 1 g tablet Take 1 tablet (1 g) by mouth 1 (one) time each day. as directed Active rosuvastatin (Crestor) 10 MG tablet Take 1 tablet (10 mg) by mouth 1 (one) time each day. 4 Active lisinopril 10 MG tablet Take 1 tablet (10 mg) by mouth 2 (two) times a day. 4 Active albuterol (Proventil) (2.5 MG/3ML) 0.083% nebulizer solution USE 1 VIAL IN NEBULIZER EVERY 6 HOURS NEEDED 4 Active nitrofurantoin, macrocrystal-mo nohydrate, (Macrobid) 100 MG capsule Take 1 capsule (100 mg) by mouth 2 (two) times a day. 14 capsule Active Additional Information Patient not taking.Reported on 05/02/2024 hydroCHLOROthia zide (HYDRODiuril) 25 MG tablet Take 1 tablet (25 mg) by mouth 1 (one) time each day. Active Active Problems Problem Noted Date Diagnosed Date Postoperative follow-up 05/02/2024 Dysuria 05/02/2024 Mass of lower inner quadrant of right breast Obesity (BMI 35.0-39.9 without comorbidity) 06/16 Resolved Problems Problem Noted Date Diagnosed Date Resolved Date Menorrhagia with regular cycle 03/30/2024 05/02/2024 Family History Medical History Relation Name Comments Conversions - Other Father Paget di sease of bone Hypertension Father Melanoma Father Breast cancer Mother Hypertension Mother Breast cancer Sister Relation Name Status Comments Father Mother Sister Social History Tobacco Use Types Packs/Day Years Used Date Smoking Tobacco: Never Smokeless Tobacco: Never Tobacco Cessation:Counseling Given: Not Answered Alcohol Use Standard Drinks/Week Comments Not Currently 0 (1 standard drink = 0.6 oz pur e alcohol) PHQ-2 Answer Date Recorded Patient Health Questionnaire-2 Score 0 05/02/2024 PHQ-9 Answer Date Recorded Patient Health Questionnaire-9 Score 0 05/02/2024 PHQ-2A Answer Date Recorded Patient Health Questionnaire-2 Score 0 07/14/2022 Comments No Sex and Gender Information Value Date Recorded Sex Assigned at Not on file Legal Sex Female 7:47 PM EDT Gender Identity Not on file Sexual Orientation Not on file Last Filed Vital Signs Vital Sign Reading Time Taken Comments Blood Pressure 124/84 05/02/2024 9:34 AM EST Pulse 88 03/30/2024 8:17 AM EST Temperature 36.7 C (98.1 F) 03/30/2024 8:17 AM EST Respiratory Rate 17 03/30/2024 8:17 AM EST Oxygen Saturation 99% 03/30/2024 8:17 AM EST Inhaled Oxygen Concentration - - Weight 106 kg (233 lb 11 oz) 05/02/2024 9:34 AM EST Height 172.7 cm (5' 8 ) 03/30/2024 8:17 AM EST Body Mass Index 35.53 03/30/2024 8:17 AM EST Plan of Treatment Health Maintenance Due Date Last Done Comments [facility]-Infant/Child/Adol SDOH Screenings 1975 [facility]- SDOH Screenings 1994 [facility]-Adult SDOH Screenings 1994 [facility]-Hepatitis B Vaccines (1 of 3 - 19+ 3-dose series) 08/24/1995 CT Colonography 2021 Colonoscopy 2021 FIT-DNA 2021 FIT 2021 FOBT 2021 Sigmoidoscopy 2021 [facility]-Colorectal Cancer Screening 2021 [facility]-DTaP,Tdap,and Td Vaccines (2 - Td or Tdap) 07/31/2022 07/31/2012 [id number] Vaccine (1 - season) 2023 [facility]-Influenza Vaccine (#1) 2024 [facility]-Depression Screening 05/02/2025 05/02/2024, 04/18 [facility]-Zoster Vaccines (1 of 2) 2026 [facility]-Pap Smear 10/06/2026 10/07/2023, 07/20/2022 [facility]-Cervical Cancer Screening 10/06/2028 [facility]-HPV/Cotest 10/06/2028 10/07/2023, 07/20/2022 [facility]-HIV Screening Completed 08/05/2016 [facility]-Hepatitis C Screening Completed 08/05/2016 [facility]-Hepatitis A Vaccines Aged Out 09/01/2018, 01/17 No longer eligible based on patient's age to complete this topic [facility]-Obesity Intervention Completed 025, 03/30/2024, 10/28/2023, Additional history exists HPV Vaccines Aged Out No longer eligi ble based on patient's age to complete this topic [facility]-HIB Vaccines Aged Out No longer e ligible based on patient's age to complete this topic [facility]-IPV Vaccines Aged Out No longer e ligible based on patient's age to complete this topic [facility]-Pneumococcal Vaccine: Pediatrics (0 to 5 Years) and At-Risk Patients (6 to 49 Years) Aged Out No longer eligible based on patient's age to complete this topic [facility]-Rotavirus Vaccines Aged Out No lo nger eligible based on patient's age to complete this topic Procedures Procedure Name Priority Date/Time Associated Diagnosis Comments REFERRED THINPREP PAP AND HPV (SO) Routine 10/07/2023 9:43 AM EDT Encounter for gynecological examination (general) (routine) without abnormal findings HEPATITIS C ANTIBODY W/REFLEX TO HCV QUANT PCR Routine 08/05/2016 11:09 AM EDT HIV 1/2 ANTIBODY/ANTIGEN SCREEN WITH REFLEX TO HIV I/II DIFFERENTIATION Routine 08/05/2016 11:09 AM EDT from Last 3 Months or Most Recently Relevant to Health Maintenance Results * Referred ThinPrep Pap and HPV (SO) (10/07/2023 9:43 AM EDT) Pap, Source Cx/Vaginal 10/12/2023 1:39 PM EDT [facility] EER Referred ThinPrep Pap and HPV See Note 10/12/2023 1:39 PM EDT [facility] PAP, THINPREP Normal 10/12/2023 1:39 PM EDT [facility] High Risk HPV Normal 10/12/2023 1:39 PM EDT [facility] Swab Vaginal and cervical cytologic material / Unknown Non-blood Collection / Unknown 10/07/2023 9:43 AM EDT 10/07/2023 12:39 PM EDT Narrative [facility] - 10/12/2023 1:39 PM EDT Authorized individuals can access the [facility] Enhanced Report using the following link: [email or web address] Performed By: [facility] [address] [place] [id number] Fulfillment Associate: Ambrocio Cantor MD, PhD CLIA Number: [id number] SPECIMEN PART A. Cervical, Endocervical, Vaginal, ThinPrep Pap (Mapping Pilot) CYTOLOGY HX Date of Last Menstrual Period: n FINAL DIAGNOSIS INTERPRETATION: Negative for Intraepithelial Lesion or Malignancy. SPECIMEN ADEQUACY:Satisfactory for evaluation. Endocervical/transformation zone component present. Electronically Signed Out : Performed by: [facility] [address] [place] [address] [place] [address] Jolly Frias MD, HR-HPV: Negative Test performed by the FDA-approved [place] (Gen-Probe) APTIMA HPV test, which detects HPV genotypes: 16, 18, 31, 33, 35, 39, 45, 51, 52, 56, 58, 59, 66, and 68. Performed by: [facility] [address] [place] [address] [place] [address] Jolly Frias MD, us Kari Moscoso APRN, DNP LAB REF LAB BLOOD AND F LUID ORD Final Result Performing Organization Address City/[facility]/ZIP Co de Phone Number [facility] ([address] [phone] * HIV 1 & 2 Antibody/Antigen Screen (08/05/2016 11:09 AM EDT) HIV 1 Result NONREACTIVE Screening for HIV 1 and 2 antibodies is NONREACTIVE. No confirmatory testing is required. [facility] 08/05/2016 11:0 9 AM EDT 08/05/2016 12:21 PM EDT us Laura Woods MD LAB BLOOD ORDERABLES Final Re sult [facility] * Hepatitis C Antibody (08/05/2016 11:09 AM EDT) Hepatitis C Antibody NEGATIVE Reference Range: Negative [facility] 08/05/2016 11:0 9 AM EDT 08/05/2016 12:21 PM EDT us Laura Woods MD LAB BLOOD ORDERABLES Final Re sult [facility] from Last 3 Months or Most Recently Relevant to Health [place] [address] ANTHEM Care Teams Boring Machine Operator Vertical Relationship Specialty Start Date End [place] [address] PCP - General Family Medicine 03/30/24
--- OUTSIDE RECORDS SUMMARY | 2024-10-25 14:12 | XMS_ITS | Encounter Summary ---
Author Organization Healthcare Address [address] [place] [address] Care Team Providers Care Automobile Lights Assembler Name Role Phone None, None Primary Care Provider [phone] Pcp, No Primary Care Provider Unavailabl e Encounter Details Date Type Department Care Team (Late st Contact Info) Description 10/27/2023 Outside Procedure External Location [address] [place] [address] Maycol Buckley APRN, [facility] [address] [place] [address] Social History Tobacco Use Types Packs/Day Years Used Date Smoking Tobacco: Never Smokeless Tobacco: Never Alcohol Use Standard Drinks/Week Comments Not Currently 0 (1 standard drink = 0.6 oz pur e alcohol) PHQ-2 Answer Date Recorded Patient Health Questionnaire-2 Score 0 10/28/2023 PHQ-2A Answer Date Recorded Patient Health Questionnaire-2 Score 0 07/14/2022 Comments No Sex and Gender Information Value Date Recorded Sex Assigned at Not on file Legal Sex Female 7:47 PM EDT Gender Identity Not on file Sexual Orientation Not on file documented as of this encounter Functional Status * Over the past 2 weeks, how often have you been bothered by any of the following problems? Question Answer Date of Assessment Author Little interest or pleasure in doing things Not at all 10/28/2023 1:15 PM EDT Maury Lee Feeling down, depressed, or hopeless Not at all 10/28/2023 1:15 PM EDT Maury Lee Patient Health Questionnaire -2 Score 0 10/28/2023 1:15 PM EDT Maury Lee documented as of this encounter Plan of Treatment Not on file documented as of this encounter Procedures Procedure Name Priority Date/Time Associated Diagnosis Comments MAMMOGRAPHY BREAST SCREENING TOMOSYNTHESIS BILATERAL 10/27/2023 9:09 AM EDT documented in this encounter Results * Mammography Breast Screening Tomosynthesis Bilateral (10/27/2023 9:09 AM EDT) Anatomical Region Laterality Modality Breast Bilateral Mammography 10/27/2023 9:09 AM EDT Narrative 10/27/2023 3:33 [place] [address] Name: SAIRA BALLESTEROS Exam Date: 10/27/2023 : 1975 Age 48 years Gender: F Physician: MAYCOL BUCKLEY Facility: [facility] Facility HSV: Outpatient Exam: GINI SCRN MAMMO W/CAD BILAT Exam: 3-D screening mammography including tomosynthesis and CAD (Computer Assisted Detection). Clinical indication: Asymptomatic screening exam Comparison: Exams to 2019 TECHNIQUE: Routine bilateral 2D screening mammogram with CC and MLO views obtained. 3-D tomosynthesis and Computer assisted detection were utilized for this exam. BREAST DENSITY: There are scattered fibroglandular densities FINDINGS: No suspicious mass, architectural distortion, or suspicious calcifications are present. IMPRESSION: No evidence of malignancy in either breast Recommendation: Annual screening mammography recommended in one year RECOMMEND HIGH RISK SCREENING BREAST MRI AT THIS TIME. Risk assessment: This patient is at high risk for breast cancer with a 47.5% lifetime risk of breast cancer based on the Tyrer-Cuzick model. Recommend annual high risk screening breast MRI as per ACR/ACS and NCCN guidelines in addition to annual screening exam. The results of this report will be communicated to the patient by letter in layman's terms. ACR BI-RADS: BI-RADS assessment category 1: Negative mammogram Mammography does not detect approximately 10-15% of breast cancers. A normal mammogram does not exclude breast cancer in a patient with palpable mass or abnormal findings on physical examination. These patients may need biopsies and when clinically indicated a biopsy should not be postponed because of a normal mammogram. If the patient has breast surgery or biopsy, FDA/SA Regulatory Guidelines mandate that this facility receive pathologic results for follow-up correlation. Electronically signed by:Kimo Potts MD10/27/2023 03:29 PM EDT RP Dictated By: Kimo Potts Transcribed By: Transcribed On: 10/27/2023 9:52 AM Electronically signed by: Kimo Potts 10/27/2023 Thank you for referring SAIRA BALLESTEROS to [facility]. Legally authenticated by TRENA MACK 2023-10-27 09:52:19 Procedure Note Provider, [facility] - 10/27/2023 [place] [address] Name: SAIRA BALLESTEROS Exam Date: 10/27/2023 : 1975 Age 48 years Gender: F Physician: MAYCOL BUCKLEY Facility: [facility] Facility HSV: Outpatient Exam: GINI SCRN MAMMO W/CAD BILAT Exam: 3-D screening mammography including tomosynthesis and CAD(Computer Assisted Detection). Clinical indication: Asymptomatic screening exam Comparison: Exams to 2019 TECHNIQUE: Routine bilateral 2D screening mammogram with CC and MLOviews obtained. 3-D tomosynthesis and Computer assisted detection were utilizedfor this exam. BREAST DENSITY: There are scattered fibroglandular densities FINDINGS: No suspicious mass, architectural distortion, or suspicious calcifications are present. IMPRESSION: No evidence of malignancy in either breast Recommendation: Annual screening mammography recommended in one year RECOMMEND HIGH RISK SCREENING BREAST MRI AT THIS TIME. Risk assessment: This patient is at high risk for breast cancer with a47.5% lifetime risk of breast cancer based on the Tyrer-Cuzick model.Recommend annual high risk screening breast MRI as per ACR/ACS and NCCN guidelinesin addition to annual screening exam. The results of this report will be communicated to the patient by letterin layman's terms. ACR BI-RADS: BI-RADS assessment category 1: Negative mammogram Mammography does not detect approximately 10-15% of breast cancers. Anormal mammogram does not exclude breast cancer in a patient with palpable massor abnormal findings on physical examination. These patients may needbiopsies and when clinically indicated a biopsy should not be postponed because ofa normal mammogram. If the patient has breast surgery or biopsy, FDA/SA Regulatory Guidelines mandate that this facility receive pathologicresults for follow-up correlation. Electronically signed by:Kimo Potts MD10/27/2023 03:29 PM EDT RP Dictated By: Kimo Potts Transcribed By: Transcribed On: 10/27/2023 9:52 AM Electronically signed by: Kimo Potts 10/27/2023 Thank you for referring SAIRA BALLESTEROS to [facility]. Legally authenticated by TRENA MACK 2023-10-27 09:52:19 Maycol Buckley APRN, [facility] BI PROCEDURES Final Result documented in this encounter Visit Diagnoses Not on filedocumented in this encounter Additional Health Concerns Assessment Noted Time A fall risk assessment has been complete d for the patient 10/07/2023 9:12 AM EDT A Body Mass Index follow-up plan has been documented for the patient 10/07/2023 1:11 PM EDT documented as of this encounter Care Teams Automobile Lights Assembler Relationship Specialty Start Date End Date None, None [address] [place], [place] [id number] PCP - General NONE FOUND 07/14/22 11/10/23 Pcp, No [address] [place] [address] PCP - General Family Medicine 03/30/24 documented as of this encounter
--- OUTSIDE RECORDS SUMMARY | 2024-10-25 14:12 | XMS_ITS | Encounter Summary ---
Author Organization Healthcare Address [address] [place] [address] Care Team Providers Care Oracle Brm Developer Name Role Phone None, None Primary Care Provider [phone] Pcp, No Primary Care Provider Unavailabl e Encounter Details Date Type Department Care Team (Late st Contact Info) Description 10/08/2022 Community [facility] [address] [place] [address] Lisa Cooley, EQUIPMENT SUPERINTENDENT [address] [place] [address] Obstructive sleep apnea (adult) (pediatric) (Primary Dx); Obesity (BMI 35.0-39.9 without comorbidity) Social History Tobacco Use Types Packs/Day Years Used Date Smoking Tobacco: Never Smokeless Tobacco: Never Alcohol Use Standard Drinks/Week Comments Not Currently 0 (1 standard drink = 0.6 oz pur e alcohol) PHQ-2 Answer Date Recorded Patient Health Questionnaire-2 Score 0 07/14/2022 PHQ-2A Answer Date Recorded Patient Health Questionnaire-2 Score 0 07/14/2022 Comments No Sex and Gender Information Value Date Recorded Sex Assigned at Not on file Legal Sex Female 7:47 PM EDT Gender Identity Not on file Sexual Orientation Not on file documented as of this encounter Plan of Treatment Not on file documented as of this encounter Visit Diagnoses Diagnosis Obstructive sleep apnea (adult) (pediatric)- Primary Obesity (BMI 35.0-39.9 without comorbidity) documented in this encounter Additional Health Concerns Assessment Noted Time A fall risk assessment has been complete d for the patient 07/20/2022 10:20 AM EDT A Body Mass Index follow-up plan has been documented for the patient 07/14/2022 5:00 PM EDT documented as of this encounter Care Teams Oracle Brm Developer Relationship Specialty Start Date End Date None, None [address] [place] [address] PCP - General NONE FOUND 07/14/22 11/10/23 [place] [address] PCP - General Family Medicine 03/30/24 documented as of this encounter
--- NOTE | 2024-10-25 14:29 | XR_ITS ---
FINAL REPORT CLINICAL HISTORY: PAIN, low back COMPARISON: None FINDINGS: SACROILIAC JOINTS SERIES Three views were obtained. There is no acute fracture or dislocation. The joint spaces appear normal. The visualized bony structures are well aligned. No soft tissue abnormality is seen. IMPRESSION: No acute bony abnormality. Reviewed, Interpreted and Dictated by Thomas Malagon MD Transcribed by Emmie Casiano Authenticated and . [facility]
--- NOTE | 2024-10-25 14:29 | XR_ITS ---
FINAL REPORT CLINICAL HISTORY: SOA FINDINGS: CHEST 2 VIEWS PA AND LATERAL The heart is normal in size. The mediastinum is unremarkable. The lungs are clear. There is no pneumothorax. IMPRESSION: No acute process. Reviewed, Interpreted and Dictated by Thomas Malagon MD Transcribed by Kinjal Kapoor Authenticated and . [facility]
[2024-10-25 15:01] LABS: Hematocrit 44.2 % (37.0-47.0); Hemoglobin 14.7 g/dL (12.2-16.2); Immature Granulocytes % 0.3 %; Mean Corpuscular HGB Conc 33.3 g/dL (31.8-35.4); Mean Corpuscular Hemoglobin 29.0 pg (27.0-31.2); Mean Corpuscular Volume 87.2 fl (81-99); Nucleated Red Blood Cells % 0 %; Platelet Count 423 K/mm3 (142-424); Red Blood Count 5.07 M/mm3 (4.20-5.40); Red Cell Distribution Width-SD 41.7 fL; White Blood Count 10.2 K/mm3 (4.8-10.8)
[2024-10-25 15:27] LABS: Creatine Kinase 99 U/L (30-135)
[2024-10-25 15:27] LABS: Albumin Level 4.7 g/dl (3.5-5.0); Chloride 98 mmol/L (98-107); Potassium 4.1 mmoL/L (3.5-5.1); Sodium 136 mmol/L (136-145)
[2024-10-25 15:29] LABS: Alanine Aminotransferase 121 U/L (12-78); Anion Gap 14.1 mEq/L (5-15); Aspartate Amino Transferase 55 U/L (14-36); Blood Urea Nitrogen 21 mg/dl (7-17); Carbon Dioxide 28 mmol/L (22.0-30.0); Creatinine,Serum 0.80 mg/dl (0.52-1.04); Estimated Glomerular Filt Rate 77 ml/min (>60); GFR (African American) 93 ML/MIN (>60)
[2024-10-25 15:30] LABS: Albumin/Globulin Ratio 1.4 (1.1-1.8); Alkaline Phosphatase 79 U/L (38-126); Bilirubin,Total 0.5 mg/dl (0.2-1.3); Calcium 10.5 mg/dl (8.4-10.2); Globulin 3.4 g/dL (1.3-3.2); Glucose 104 mg/dl (74-100); Iron 112 ug/dL (37-170); Total Protein,Serum 8.1 g/dl (6.3-8.2)
[2024-10-25 15:39] LABS: Total Iron Binding Capacity 331 ug/dL (265-497)
[2024-10-25 15:40] LABS: C-Reactive Protein 4.7 mg/L (0-4)
[2024-10-25 15:45] LABS: 25-OH Vitamin D, Total 71.9 ng/mL (30-100)
[2024-10-25 15:50] LABS: Triiodothryronine (T3) Uptake 30 % (23.5-40.5)
[2024-10-25 15:51] LABS: Free T4 (Free Thyroxine) 1.07 ng/dl (0.78-2.19); Free Thyroxine Index 2.4 ug/dL (5.93-13.13); T4 (Thyroxine) 8.1 ug/dl (5.53-11.0)
[2024-10-25 16:00] LABS: Thyroid Stimulating Hormone 1.10 uIU/mL (0.465-4.68)
[2024-10-25 16:05] LABS: Thyroid Stimulating Hormone 1.06 uIU/mL (0.465-4.68)
[2024-10-25 16:07] LABS: Ferritin 69.7 ng/ml (6.24-137)
[2024-10-25 17:05] LABS: Vitamin B12 > 1000 pg/mL (239-931)
[2024-10-26 13:24] LABS: RA Latex Turbid. <10.0 IU/mL (<14.0)
[2024-10-29 09:10] LABS: Antinuclear Antibodies, IFA Negative (.)
== END 2024-10-25 23:59 | disposition home or self-care (01) ==
LOC: LAB 14:02
PROVIDERS: Nurse Practitioner Family; PCP Family Medicine; Visit Provider Internal Medicine Rheumatology
DX: K50.90 Crohn's disease, unspecified, without complications (principal)
CPT/HCPCS: 36415; 71046; 72202; 80053; 82306; 82550; 82607; 82728; 83540; 83550; 84436; 84439; 84443; 84479; 85025; 85651; 86036; 86038; 86140; 86225; 86431

== ENCOUNTER 2024-11-12 08:34 | Outpatient (CLI) | payer BC, SELFPAY ==
--- OUTSIDE RECORDS SUMMARY | 2024-09-20 14:30 | XMS_ITS | Encounter Summary ---
Author Organization [facility] Address [address] [place] [address] Care Team Providers Care Sales Operations Coordinator Name Role Phone Abdifatah Miller MD Primary Care Provider [phone] Reason for Visit * Reason Comments Follow-up Follow up medication change Encounter Details Date Type Department Care Team (Late st Contact Info) Description 09/20/2024 2:30 PM EDT Office Visit [facility] [address] [place] [address] Joanie Ross, [employer] [address] [place] [address] [place] [address] Obesity (BMI 35.0-39.9 without comorbidity) (Primary Dx); TED (obstructive sleep apnea) Social History Tobacco Use Types Packs/Day Years Used Date Smoking Tobacco: Never Passive Smoke Exposure: Never Smokeless Tobacco: Never Tobacco Cessation:Counseling Given: Not Answered Alcohol Use Standard Drinks/Week Comments Never 0 (1 standard drink = 0.6 oz pur e alcohol) Abuse Screen Answer Date Recorded Unsafe at Home or Work/School Not on file Feels Threatened by Someone? Not on file 02/2023 Does Anyone Keep You from Co ntacting Others or Doint Things Outside the Home? Not on file 01/26/2023 Physical Sign of Abuse Present Not on file 1 Housing Stability Answer Date Recorded Current Living Arrangements Not on file 01/16 Potentially Unsafe Housing Conditions Not on merrill e 01/26/2023 Disabilities Answer Date Recorded Concentrating, Remembering, or Making Decisions Difficulty Not on file 01/26/2023 Doing Errands Independently Difficulty Not on fi le 01/26/2023 Comments Unknown Sex and Gender Information Value Date Recorded Sex Assigned at Female 07/05/2022 10:13 AM EDT Legal Sex Female 3:52 PM EST Gender Identity Female 07/05/2022 10:13 AM EDT Sexual Orientation Straight 07/05/2022 10 :13 AM EDT documented as of this encounter Last Filed Vital Signs Vital Sign Reading Time Taken Comments Blood Pressure 120/86 09/20/2024 2:43 PM EDT Pulse 92 09/20/2024 2:43 PM EDT Temperature - - Respiratory Rate - - Oxygen Saturation 99% 09/20/2024 2:43 PM EDT Inhaled Oxygen Concentration - - Weight - - Height 172.7 cm (5' 8 ) 09/20/2024 2:43 PM EDT Body Mass Index - - documented in this encounter Progress Notes * Joanie Ross APRN - 09/21/2024 5:23 PM EDTAssociated Problem(s): TED (obstructive sleep apnea) Patient has a history of TED and intolerant to pap therapy. * Joanie Ross APRN - 09/21/2024 5:22 PM EDTAssociated Problem(s): Obesity (BMI 35.0-39.9 without comorbidity) Patient's (Body mass index is 34.21 kg/m .) indicates that they are obese (BMI >30) with healthconditions that include obstructive sleep apnea, hypertension, and dyslipidemias . Weight is improving with treatment. BMI is above average; no BMI management plan is appropriate. We discussed portion control, increasing exercise, and pharmacologic options including tirzepatide. Patient reports that she has only lost a couple of pounds since her last visit. She has been doing well on her medication. She has no reports of constipation or increased GERD. Patient encouraged to drink plenty of water and to intake at least 30 g of protein 3 times a day. Plan to increase current medication. * Joanie Ross, LIYAH - 09/20/2024 2:30 PM EDT Images from the original note were not included. [facility] Provider Note Date: 09/20/2024 Name: Saira Jean Baptiste : 1975 PCP: Abdifatah Miller MD Chief Complaint Patient presents with Follow-up Follow up medication change Subjective History of Present Illness Saira Jean Baptiste is a 49 y.o. female who presents today for follow up weight loss medication. Patient states she has been doing well with her Zepbound. She states that she has lost a few more pounds since her last visit. She denies any worsening GERD or constipation. Patient reports that she keeps herself well-hydrated and has increased her protein intake. Cardiac history 1. Palpitations -metoprolol prescribed through us 2. Mild mitral regurgitation 3. Obstructive sleep apnea -intolerant to CPAP 4. High cholesterol 5. Obesity 6. Hypertension Reports Denies Chest Pain [] [x] Shortness of Air [] [x] Palpitations [] [x] Edema [] [x] Dizziness [] [x] Syncope [] [x] Allergies Allergen Reactions Penicillins Rash .pcnallergydetails Current Outpatient Medications: albuterol sulfate HFA 108 (90 Base) MCG/ACT inhaler, Inhale 2 puffs Every 4 (Four) Hours As Needed for Wheezing., Disp: , Rfl: colestipol (COLESTID) 1 g tablet, Take 1 tablet by mouth Daily., Disp: , Rfl: ibuprofen (ADVIL,MOTRIN) 800 MG tablet, Take 1 tablet by mouth Every 6 (Six) Hours As Needed. for pain, Disp: , Rfl: lisinopril (PRINIVIL,ZESTRIL) 10 MG tablet, Take 1 tablet by mouth 2 (Two) Times a Day., Disp: 180 tablet, Rfl: 3 metoprolol succinate XL (TOPROL-XL) 50 MG 24 hr tablet, Take 1 tablet by mouth 2 (Two) Times a Day., Disp: 180 tablet, Rfl: 3 rosuvastatin (CRESTOR) 10 MG tablet, Take 1 tablet by mouth Daily., Disp: 90 tablet, Rfl: 3 sertraline (ZOLOFT) 50 MG tablet, Take 1 tablet by mouth Daily., Disp: , Rfl: triamterene-hydrochlorothiazide (MAXZIDE-25) 37.5-25 MG per tablet, Take 1 tablet by mouth Daily., Disp: , Rfl: Tirzepatide-Weight Management (ZEPBOUND) 7.5 MG/0.5ML solution auto-injector, Inject 0.5 mL under the skin into the appropriate area as directed 1 (One) Time Per Week., Disp: 0.5 mL, Rfl: 1 Past Medical History: Diagnosis Date Asthma Crohn disease Hypertension IBS (irritable bowel syndrome) TED (obstructive sleep apnea) noncompliant CPAP Past Surgical History: Procedure Laterality Date CYST REMOVAL from breast GALLBLADDER SURGERY HEMORRHOIDECTOMY N/A 06/10/2023 Procedure: EXAM UNDER ANESTHESIA WITH ANODERMAL AND ENDORECTAL ADVANCEMENT FLAP WITH WATERS RETRACTOR; Surgeon: Sinan Valdez MD; Location: [facility]; Service: General; Laterality: N/A; HYSTERECTOMY 03/2024 [employer] Family History Problem Relation Age of Onset Hypertension Mother Breast cancer Mother Heart failure Mother Other Mother Pacemaker Hyperlipidemia Father Hypertension Father Atrial fibrillation Father Skin cancer Father Heart disease Sister unknown heart issue Breast cancer Sister Crohn's disease Sister Social History Socioeconomic History Marital status: Number of children: 1 Tobacco Use Smoking status: Never Passive exposure: Never Smokeless tobacco: Never Vaping Use Vaping status: Never Used Substance and Sexual Activity Alcohol use: Never Drug use: Never Sexual activity: Yes Partners: Male control/protection: None Objective Vital Signs: BP 120/86 (BP Location: Right arm, Patient Position: Sitting, Cuff Size: Large Adult) Pulse 92 Ht 172.7 cm (68 ) SpO2 99% BMI 34.21 kg/m?? Estimated body mass index is 34.21 kg/m?? as calculated from the following: Height as of this encounter: 172.7 cm (68 ). Weight as of 08/17/24: 102 kg (225 lb). Physical Exam Constitutional: Appearance: Normal appearance. She is obese. Neurological: General: No focal deficit present. Mental Status: She is alert and oriented to person, place, and time. Psychiatric: Mood and Affect: Mood normal. Behavior: Behavior normal. Thought Content: Thought content normal. Judgment: Judgment normal. Assessment and Plan Diagnoses and all orders for this visit: 1. Obesity (BMI 35.0-39.9 without comorbidity) (Primary) Assessment & Plan: Patient's (Body mass index is 34.21 kg/m .) indicates that they are obese (BMI >30) with healthconditions that include obstructive sleep apnea, hypertension, and dyslipidemias . Weight is improving with treatment. BMI is above average; no BMI management plan is appropriate. We discussed portion control, increasing exercise, and pharmacologic options including tirzepatide. Patient reports that she has only lost a couple of pounds since her last visit. She has been doing well on her medication. She has no reports of constipation or increased GERD. Patient encouraged to drink plenty of water and to intake at least 30 g of protein 3 times a day. Plan to increase current medication. Orders: - Tirzepatide-Weight Management (ZEPBOUND) 7.5 MG/0.5ML solution auto-injector; Inject 0.5 mL underthe skin into the appropriate area as directed 1 (One) Time Per Week. Dispense: 0.5 mL; Refill: 1 2. TED (obstructive sleep apnea) Assessment & Plan: Patient has a history of TED and intolerant to pap therapy. Orders: - Tirzepatide-Weight Management (ZEPBOUND) 7.5 MG/0.5ML solution auto-injector; Inject 0.5 mL underthe skin into the appropriate area as directed 1 (One) Time Per Week. Dispense: 0.5 mL; Refill: 1 Recommendations: ER if symptoms increase, Report if any new/changing symptoms immediately, Sleep risks reviewed (driving, medical, sleep , sedating agents), and Sleep hygiene discussed Follow Up Return in about 1 month (around 10/20/2024) for Weight loss medication. Patient was given instructions and counseling regarding her condition or for health maintenance advice. Please see specific information pulled into the AVS if appropriate. documented in this encounter Plan of Treatment Upcoming Encounters Date Type Department Care Team (Late st Contact Info) Description 12/28/2024 2:30 PM EDT Office Visit [facility] [address] [place] [address] Joanie Ross, [employer] [address] [place] [address] [place] [address] documented as of this encounter Visit Diagnoses Diagnosis Obesity (BMI 35.0-39.9 without comorbidity)- Primary TED (obstructive sleep apnea) Obstructive sleep apnea (adult) (pediatric) documented in this encounter Care Teams Sales Operations Coordinator Relationship Specialty Start Date End Date Abdifatah Miller MD [facility] [address] [facility] [address] [place] [address] PCP - General Family Medicine 07/12/22 documented as of this encounter
--- OUTSIDE RECORDS SUMMARY | 2024-10-25 11:00 | XMS_ITS | Encounter Summary ---
Author Organization [facility] Address [address] [place] [address] Care Team Providers Care Spring Setter Name Role Phone Abdifatah Miller MD Primary Care Provider [phone] Reason for Visit * Reason Comments Follow-up Encounter Details Date Type Department Care Team (Late st Contact Info) Description 10/25/2024 11:00 AM EDT Office Visit [facility] [address] [place] [address] Joanie Ross, ZIPPER REPAIRER [address] [place], [place] [id number] Obesity (BMI 35.0-39.9 without comorbidity) (Primary Dx); Paroxysmal SVT (supraventricular tachycardia); Hypertension, essential; TED (obstructive sleep apnea); Hypercholesterolemia Social History Tobacco Use Types Packs/Day Years Used Date Smoking Tobacco: Never Passive Smoke Exposure: Never Smokeless Tobacco: Never Alcohol Use Standard Drinks/Week Comments Never 0 [...] Sign Reading Time Taken Comments Blood Pressure 122/80 10/25/2024 11:13 AM EDT Pulse 85 10/25/2024 11:13 AM EDT Temperature - - Respiratory Rate - - Oxygen Saturation 97% 10/25/2024 11:13 AM EDT Inhaled Oxygen Concentration - - Weight 98.9 kg (218 lb) 10/25/2024 11:13 AM EDT Height 172.7 cm (5' 8 ) 10/25/2024 11:13 AM EDT Body Mass Index 33.15 10/25/2024 11:13 AM EDT documented in this encounter Progress Notes * Joanie Ross APRN - 10/25/2024 4:25 PM EDTAssociated Problem(s): Hypercholesterolemia Patient has not been able to tolerate the Rosuvastatin because of muscle cramping. Plan Zetia 10 mg nightly. * Joanie Ross APRN - 10/25/2024 4:24 PM EDTAssociated Problem(s): Obesity (BMI 35.0-39.9 without comorbidity) Patient's (Body mass index is 33.15 kg/m .) indicates that they are obese (BMI >30) with healthconditions that include obstructive sleep apnea, hypertension, and dyslipidemias . Weight is improving with treatment. BMI is above average; no BMI management plan is appropriate. We discussed portion control, increasing exercise, and pharmacologic options including Zepbound. Continue Zepbound at current dosage. Follow up in 2 months. * Joanie Ross APRN - 10/25/2024 4:22 PM EDTAssociated Problem(s): Hypertension, essential Hypertension is stable and controlled Continue current treatment regimen. Blood pressure will be reassessed 2 months. * Joanie Ross APRN - 10/25/2024 4:22 PM EDTAssociated Problem(s): Paroxysmal SVT (supraventricular tachycardia) Nonsustained SVT well controlled on Metoprolol. She states she has not noticed any episodes of SVT. Plan to continue Metoprolol Succ. 50 mg * Joanie Ross APRN - 10/25/2024 4:20 PM EDTAssociated Problem(s): TED (obstructive sleep apnea) History of TED intolerant to cpap. * Joanie Ross APRN - 10/25/2024 11:00 AM EDT Images from the original note were not included. [facility] Provider Note Date: 10/25/2024 Name: Saira Jean Baptiste : 1975 PCP: Abdifatah Miller MD Chief Complaint Patient presents with Follow-up Subjective History of Present Illness Saira Jean Baptiste is a 49 y.o. female who presents today for weight loss medication. Patient states that she is losing her weight slowly and she feels comfortable with that. She wishesto stay on the same dose of medication for a while. She states she has had some constipation but has taken medication to help. She states that her blood pressure has been more controlled. She states she has not any palpitations lately. She states that she forgot to take Maxide for 2 days and her legs started to swell. Patient has had a 19 lb weight loss and we celebrate this accomplishment and support continued weight loss. Patient reports she has not been taking her rosuvastation because she gets muscle cramping. Will try Zetia 10 mg nightly. Cardiac history 1. Palpitations -metoprolol prescribed through us 2. Mild mitral regurgitation 3. Obstructive sleep apnea -intolerant to CPAP 4. High cholesterol 5. Obesity 6. Hypertension Reports Denies Chest Pain [] [x] Shortness of Air [] [x] Palpitations [x] [] Edema [x] [] Dizziness [] [x] Syncope [] [x] Allergies [...] MG tablet, Take 1 tablet by mouth twice daily, Disp: 180 tablet, Rfl: 0 metoprolol succinate XL (TOPROL-XL) 50 MG 24 hr tablet, Take 1 tablet by mouth 2 (Two) Times a Day., Disp: 180 tablet, Rfl: 3 rosuvastatin (CRESTOR) 10 MG tablet, Take 1 tablet by mouth once daily, Disp: 90 tablet, Rfl: 0 sertraline (ZOLOFT) 50 MG tablet, Take 1 tablet by mouth Daily., Disp: , Rfl: Tirzepatide-Weight Management (ZEPBOUND) 7.5 MG/0.5ML solution auto-injector, Inject 0.5 mL under the skin into the appropriate area as directed 1 (One) Time Per Week., Disp: 0.5 mL, Rfl: 2 triamterene-hydrochlorothiazide (MAXZIDE-25) 37.5-25 MG per tablet, Take 1 tablet by mouth Daily., Disp: , Rfl: ezetimibe (ZETIA) 10 MG tablet, Take 1 tablet by mouth Daily., Disp: 90 tablet, Rfl: 3 Past Medical History: Diagnosis Date Asthma Crohn disease Hypertension IBS (irritable bowel syndrome) TED (obstructive sleep apnea) noncompliant CPAP Past Surgical History: Procedure Laterality Date CYST REMOVAL from breast GALLBLADDER SURGERY HEMORRHOIDECTOMY N/A 06/10/2023 Procedure: EXAM UNDER ANESTHESIA WITH ANODERMAL AND ENDORECTAL ADVANCEMENT FLAP WITH WATERS RETRACTOR; Surgeon: Sinan Valdez MD; Location: [facility]; Service: General; Laterality: N/A; HYSTERECTOMY 03/2024 RECTAL [...] Male control/protection: None Objective Vital Signs: BP 122/80 Pulse 85 Ht 172.7 cm (68 ) Wt 98.9 kg (218 lb) SpO2 97% BMI 33.15 kg/m?? Estimated body mass index is 33.15 kg/m?? as calculated from the following: Height as of this encounter: 172.7 cm (68 ). Weight as of this encounter: 98.9 kg (218 lb). Physical Exam Constitutional: Appearance: Normal appearance. She is obese. Cardiovascular: Rate and Rhythm: Normal rate and regular rhythm. Pulses: Normal pulses. Heart sounds: Normal heart sounds. Pulmonary: Effort: Pulmonary effort is normal. Breath sounds: Normal breath sounds. Musculoskeletal: General: Normal range of motion. Skin: General: Skin is warm and dry. Capillary Refill: Capillary refill takes less than 2 seconds. Neurological: General: No focal deficit present. Mental Status: She is alert and oriented to person, place, and time. Psychiatric: Mood and Affect: Mood normal. Behavior: Behavior normal. Thought Content: Thought content normal. Judgment: Judgment normal. Assessment and Plan Diagnoses and all orders for this visit: 1. Obesity (BMI 35.0-39.9 without comorbidity) (Primary) Assessment & Plan: Patient's (Body mass index is 33.15 kg/m .) indicates that they are obese (BMI >30) with healthconditions that include obstructive sleep apnea, hypertension, and dyslipidemias . Weight is improving with treatment. BMI is above average; no BMI management plan is appropriate. We discussed portion control, increasing exercise, and pharmacologic options including Zepbound. Continue Zepbound at current dosage. Follow up in 2 months. Orders: - Tirzepatide-Weight Management (ZEPBOUND) 7.5 MG/0.5ML solution auto-injector; Inject 0.5 mL underthe skin into the appropriate area as directed 1 (One) Time Per Week. Dispense: 0.5 mL; Refill: 2 2. Paroxysmal SVT (supraventricular tachycardia) Assessment & Plan: Nonsustained SVT well controlled on Metoprolol. She states she has not noticed any episodes of SVT. Plan to continue Metoprolol Succ. 50 mg 3. Hypertension, essential Assessment & Plan: Hypertension is stable and controlled Continue current treatment regimen. Blood pressure will be reassessed 2 months. 4. TED (obstructive sleep apnea) Assessment & Plan: History of TED intolerant to cpap. Orders: - Tirzepatide-Weight Management (ZEPBOUND) 7.5 MG/0.5ML solution auto-injector; Inject 0.5 mL underthe skin into the appropriate area as directed 1 (One) Time Per Week. Dispense: 0.5 mL; Refill: 2 5. Hypercholesterolemia Assessment & Plan: Patient has not been able to tolerate the Rosuvastatin because of muscle cramping. Plan Zetia 10 mg nightly. Other orders - ezetimibe (ZETIA) 10 MG tablet; Take 1 tablet by mouth Daily. Dispense: 90 tablet; Refill: 3 Recommendations: ER if symptoms increase, Report if any new/changing symptoms immediately, Limit salt, Elevate legs, Limit caffeine, Exercise recommendations discussed, Sleep risks reviewed (driving,medical, sleep , sedating agents), and Sleep hygiene discussed Follow Up Return in about 2 months (around 12/26/2024) for Weight loss. Patient was given instructions and counseling regarding her condition or for health maintenance advice. Please see specific information pulled into the AVS if appropriate. documented in this encounter Plan of Treatment Upcoming Encounters Date Type Department Care Team (Late st Contact Info) Description 12/28/2024 2:30 PM EDT Office Visit [facility] CARDIOLOGY [address] [place] [phone] Joanie Ross, ZIPPER REPAIRER [address] [place] [address] [place] [address] documented as of this encounter Visit Diagnoses Diagnosis Obesity (BMI 35.0-39.9 without comorbidity)- Primary Paroxysmal SVT (supraventricular tachycardia) Hypertension, essential Unspecified essential hypertension TED (obstructive sleep apnea) Obstructive sleep apnea (adult) (pediatric) Hypercholesterolemia Pure hypercholesterolemia documented in this encounter Care Teams Spring Setter Relationship Specialty Start Date End Date Abdifatah Miller MD [address] [facility] [address] [place] [id number] PCP - General Family Medicine 07/12/22 documented as of this encounter
--- NOTE | 2024-11-12 08:30 | US_ITS ---
FINAL REPORT TECHNIQUE: Sonographic images of the right upper quadrant were obtained. CLINICAL HISTORY: Elevated LFTs AST/ALT FINDINGS: PANCREAS: Unremarkable. LIVER: Diffusely fatty infiltrated. No focal hepatic lesion. No intrahepatic biliary ductal dilatation. GALLBLADDER: Surgically absent. COMMON DUCT: 7 mm. Normal post cholecystectomy. RIGHT KIDNEY: The right kidney measures 10.3 cm. There is no hydronephrosis, mass, or stone. FREE FLUID: None. IMPRESSION: Fatty liver. Reviewed, Interpreted and Dictated by Lori Sung MD Transcribed by ALEX Butler Authenticated and . [facility]
--- OUTSIDE RECORDS SUMMARY | 2024-11-12 08:37 | XMS_ITS | Encounter Summary ---
[facility] Address [address] [place] [address] Care Team Providers Care Film Spooler Name Role Phone Abdifatah Miller MD Primary Care Provider [phone] Reason for Visit * Reason Comments Med Refill Encounter Details Date Type Department Care Team (Late st Contact Info) Description 10/24/2024 Refill [facility] [address] [place] [address] Joanie Ross, BIOINFORMATICS SOFTWARE ENGINEER [address] [place] [address] [place] [address] Med Refill Social History Tobacco Use Types Packs/Day Years [...] AM EDT documented as of this encounter Miscellaneous Notes * Telephone Encounter - Crystal Chun RegSched Rep - 10/24/2024 1:18 PM EDT 09/25/24 labs in chart * Telephone Encounter - Crystal Chun RegSched Rep - 10/24/2024 8:09 AM EDT FAX REQUEST SENT TO PCP FOR RECENT LAB RESULTS documented in this encounter Plan of Treatment Upcoming Encounters Date Type Department Care Team (Late st Contact Info) Description 12/28/2024 2:30 PM EDT Office Visit [facility] [address] [place] [address] Joanie Ross, BIOINFORMATICS SOFTWARE ENGINEER [address] [place] [address] documented as of this encounter Visit Diagnoses Diagnosis Hypertension, essential Unspecified essential hypertension Hypercholesterolemia Pure hypercholesterolemia documented in this encounter Care Teams Film Spooler Relationship Specialty Start Date End Date Abdifatah Miller MD [address] [facility] [address] [facility] [address] [place] [address] PCP - General Family Medicine 07/12/22 documented as of this encounter
--- OUTSIDE RECORDS SUMMARY | 2024-11-12 08:37 | XMS_ITS | Encounter Summary ---
[facility] [address] [place] [address] Care Team Providers Care Design Printing Machine Setter Name Role Phone Abdifatah Miller MD Primary Care Provider [phone] Reason for Visit * Reason Comments Med Refill Encounter Details Date Type Department Care Team (Late st Contact Info) Description 10/03/2024 Refill [facility] [address] [place] [address] Joanie Ross, EDUCATION SITE MANAGER [address] [place] [address] [place] [address] Med Refill Social History Tobacco [...] AM EDT documented as of this encounter Plan of Treatment Upcoming Encounters Date Type Department Care Team (Late st Contact Info) Description 12/28/2024 2:30 PM EDT Office Visit [facility] [address] [place] [id number] Joanie Ross, EDUCATION SITE MANAGER [address] [place] [address] [place] [address] documented as of this encounter Visit Diagnoses Diagnosis TED (obstructive sleep apnea) Obstructive sleep apnea (adult) (pediatric) Obesity (BMI 35.0-39.9 without comorbidity) documented in this encounter Care Teams Design Printing Machine Setter Relationship Specialty Start Date End Date Abdifatah Miller MD [address] [facility] [address] [place] [address] PCP - General Family Medicine 07/12/22 documented as of this encounter
--- OUTSIDE RECORDS SUMMARY | 2024-11-12 08:37 | XMS_ITS | Encounter Summary ---
[facility] [address] [place] [address] Care Team Providers Care Piano And Organ Refinisher Name Role Phone Abdifatah Miller MD Primary Care Provider [phone] Encounter Details Date Type Department Care Team (Late st Contact Info) Description 10/11/2024 Telephone [facility] [address] [place], [place] [address] Joanie Ross, PAPER SALES REPRESENTATIVE [address] [place], [place] [id number] Social History Tobacco Use Types Packs/Day Years [...] encounter Miscellaneous Notes * Telephone Encounter - Rebeca Singletary MA - 10/11/2024 9:05 AM EDT Called patient to move appointment to another day. documented in this encounter Plan of Treatment Upcoming Encounters Date Type Department Care Team (Late st Contact Info) Description 12/28/2024 2:30 PM EDT Office Visit [facility] [address] [place] [address] Joanie Ross, PAPER SALES REPRESENTATIVE [address] [place] [address] documented as of this encounter Visit Diagnoses Not on filedocumented in this encounter Care Teams Piano And Organ Refinisher Relationship Specialty Start Date End Date Abdifatah Miller MD [address] [place] [facility] [address] [place] [address] PCP - General Family Medicine 07/12/22 documented as of this encounter
--- OUTSIDE RECORDS SUMMARY | 2024-11-12 08:37 | XMS_ITS | Clinical Summary ---
Author Organization Healthcare Address [address] [place] [address] Care Team Providers Care Quality Assurance Test Program Manager Name Role Phone Pcp, No Primary Care [...] (2 - Td or Tdap) 07/31/2022 07/31/2012 [id number] Vaccine (1 - season) 2023 UKY-Influenza Vaccine [...] Pap, Source Cx/Vaginal 10/12/2023 1:39 PM EDT [facility] ([facility]) EER Referred ThinPrep Pap and HPV See Note 10/12/2023 1:39 PM EDT [facility] ([facility]) PAP, THINPREP Normal 10/12/2023 1:39 PM EDT [facility] ([facility]) High Risk HPV Normal 10/12/2023 1:39 PM EDT [facility] ([facility]) Swab Vaginal and cervical cytologic material / Unknown Non-blood Collection / Unknown 10/07/2023 9:43 AM EDT 10/07/2023 12:39 PM EDT Narrative [facility] ([facility]) - 10/12/2023 1:39 PM EDT Authorized individuals can access the [facility] Enhanced Report using the following link: [email or web address] Performed By: [facility] [address] [place] [address] Produce Department Manager: Ambrocio Cantor MD, PhD CLIA Number: [id number] SPECIMEN PART A. Cervical, Endocervical, Vaginal, ThinPrep Pap (City [facility]) CYTOLOGY HX Date of Last Menstrual Period: n FINAL DIAGNOSIS INTERPRETATION: Negative for Intraepithelial Lesion or Malignancy. SPECIMEN ADEQUACY:Satisfactory for evaluation. Endocervical/transformation zone component present. Electronically Signed Out : Performed by: [facility] [address] [place] [address] [place] [address] Jolly Frias MD, HR-HPV: Negative Test performed by the FDA-approved Rapid Mobile (Gen-Probe) APTIMA HPV test, which detects HPV genotypes: 16, 18, 31, 33, 35, 39, 45, 51, 52, 56, 58, 59, 66, and 68. Performed by: [facility] [address] [place] [address] [place] [address] Jolly Frias MD, us Kari Moscoso APRN, DNP LAB REF LAB BLOOD AND F LUID ORD Final Result Performing Organization Address City/[facility]/ZIP Co de Phone Number [facility] ([address] [address] * HIV 1 & 2 Antibody/Antigen Screen [...] Recently Relevant to Health [place] [address] ANTHEM Care Teams Quality Assurance Test Program Manager Relationship Specialty Start Date End Date [address] [address] PCP - General Family Medicine 03/30/24
--- OUTSIDE RECORDS SUMMARY | 2024-11-12 08:37 | XMS_ITS | Referral Summary ---
Author Organization [facility] ([place], [place], [place], [place]) Address [address] [place] [address] Care Team Providers Care Rock Wool Insulator Name Role Phone Abdifatah Miller MD Primary Care Provider [phone] Allergies Active Allergy Reactions Criticality Noted Date Comments Penicillin Rash Low 02/18/2023 Medications metoprolol succinate (TOPROL-XL) 50 MG 24 hr tablet Take 1 tablet (50 mg total) by mouth 2 (two) times daily. Active triamterene-hydr oCHLOROthiazide (MAXZIDE-25) 37.5-25 mg per tablet Take 1 tablet by mouth daily. Active lisinopriL (PRINIVIL,ZESTRI L) 20 MG tablet Take 1 tablet (20 mg total) by mouth daily. Active sertraline (ZOLOFT) 50 MG tablet Take 1 tablet (50 mg total) by mouth daily. Active colestipoL (COLESTID) 1 gram tablet Take 1 tablet (1 g total) by mouth daily. Active Active Problems Problem Noted Date Diagnosed Date Anxiety 02/21/2023 Asthma 02/21/2023 Crohn disease 02/21/2023 Hypertension, essential 02/21/2023 TED (obstructive sleep apnea) 02/21/2023 Overview (02/21/2023): Has CPAP but doesn't use it, Dr. Dee Dee Schwartz follows Last Assessment & Plan: Known TED but does not use CPAP. Followed by Dr. Dee Dee Schwartz. Paroxysmal SVT (supraventricular tachycardia) Overview (02/21/2023): All nonsustained. Obesity (BMI 35.0-39.9 without comorbidity) 06/16 Social History Tobacco Use Types Packs/Day Years Used Date Smoking Tobacco: Never Smokeless Tobacco: Never Tobacco Cessation:Counseling Given: Not Answered Alcohol Use Standard Drinks/Week Comments Never 0 (1 standard drink = 0.6 oz pur e alcohol) Food Insecurity Answer Date Recorded Food run out past 12 months Not on file 04/19 Food did not last past 12 months Not on file 05/07/2023 Employment Answer Date Recorded Help finding and keeping a job Not on file 0 05/07/2023 Family and Community Support Answer Jim e Recorded Help with Day to Day Activities Not on file 05/07/2023 Feeling Lonely or Isolated Not on file 05/07 Educational Attainment Answer Date Mark rded Speak language other than Gabonese at home Not on file 05/07/2023 Want help with school or training Not on file 05/07/2023 Substance Use Answer Date Recorded Used prescription meds for non-medical reasons N ot on file 05/07/2023 Used illegal drugs past 12 months Not on file 05/07/2023 Comments Unknown Sex and Gender Information Value Date Recorded Sex Assigned at Not on file Legal Sex Female 9:22 AM CDT Gender Identity Not on file Sexual Orientation Not on file Last Filed Vital Signs Vital Sign Reading Time Taken Comments Blood Pressure 160/89 02/21/2023 6:56 PM EST Pulse 70 02/21/2023 6:56 PM EST Temperature 36.9 C (98.4 F) 02/21/2023 6:56 PM EST Respiratory Rate 20 02/21/2023 6:56 PM EST Oxygen Saturation 97% 02/21/2023 6:56 PM EST Inhaled Oxygen Concentration - - Weight 104.5 kg (230 lb 6.4 oz) 023 12:24 PM EST Height 172.7 cm (5' 8 ) 02/21/2023 12:2 4 PM EST Body Mass Index 35.03 02/21/2023 12:24 PM EST Plan of Treatment Not on file Insurance [id number] [place] [id number] BLUE CROSS/BLUE SHIELD Care Teams Rock Wool Insulator Relationship Specialty Start Date End Date Abdifatah Miller MD [address] [place] [id number] PCP - General Family Medicine 02/18/23
--- OUTSIDE RECORDS SUMMARY | 2024-11-12 08:37 | XMS_ITS | Encounter Summary ---
Author Organization [facility] Address [address] [place] [address] Care Team Providers Care Technical Instructor Course Developer Name Role Phone Abdifatah Miller MD Primary Care Provider [phone] Encounter Details Date Type Department Care Team (Latest Contact Info) Description 09/20/2024 Travel Social History Tobacco Use Types Packs/Day Years [...] Description 12/28/2024 2:30 PM EDT Office Visit [facility] [address] [place] [phone] Joanie Ross, COMPUTER NETWORK SUPPORT SPECIALIST [address] [place] [address] documented as of this encounter Visit Diagnoses Not on filedocumented in this encounter Care Teams Technical Instructor Course Developer Relationship Specialty Start Date End Date Abdifatah Miller MD [address] [facility] [address] [facility] [address] [place] [address] PCP - General Family Medicine 07/12/22 documented as of this encounter
--- OUTSIDE RECORDS SUMMARY | 2024-11-12 08:37 | XMS_ITS | Encounter Summary ---
Author Organization Healthcare Address [address] [place] [address] Care Team Providers Care Airset Molder Name Role Phone None, None Primary Care Provider Pcp, No Primary Care Provider Unavailabl e Encounter Details Date Type Department Care Team (Late st Contact Info) Description 10/27/2023 Outside Procedure External Location [address] [place] [address] Maycol Buckley APRN, [facility] [address] [place] [address] Social History Tobacco Use Types [...] AM EDT Narrative 10/27/2023 3:33 [place] [address] Name: SAIRA BALLESTEROS Exam Date: 10/27/2023 : 1975 Age 48 years Gender: F Physician: MAYCOL BUCKLEY Facility: [facility] Facility HSV: Outpatient Exam: GINI SCRN [...] Thank you for referring SAIRA BALLESTEROS to [facility]. Legally authenticated by TRENA MACK 2023-10-27 09:52:19 Procedure Note Provider, [facility] - 10/27/2023 [place] [address] Name: SAIRA BALLESTEROS Exam Date: 10/27/2023 : 1975 Age 48 years Gender: F Physician: MAYCOL BUCKLEY Facility: [facility] Facility HSV: Outpatient Exam: GINI SCRN [...] Thank you for referring SAIRA BALLESTEROS to [facility]. Legally authenticated by TRENA MACK 2023-10-27 09:52:19 [...] documented as of this encounter Care Teams Airset Molder Relationship Specialty Start Date End Date None, None [address] [place], [place] [id number] PCP - General NONE FOUND 07/14/22 11/10/23 Pcp, No [address] [place] [address] PCP - General Family Medicine 03/30/24 documented as of this encounter
--- OUTSIDE RECORDS SUMMARY | 2024-11-12 08:37 | XMS_ITS | Encounter Summary ---
Author Organization [facility] Address [address] [place] [address] Care Team Providers Care Fish Pitcher Name Role Phone Abdifatah Miller MD Primary Care Provider [phone] Encounter Details Date Type Department Care Team (Latest Contact Info) Description 10/25/2024 Travel Social History Tobacco Use Types Packs/Day [...] Description 12/28/2024 2:30 PM EDT Office Visit [facility] [address] [place] [id number] Joanie Ross, XRAY TECH [address] [place] [address] [place] [address] documented as of this encounter Visit Diagnoses Not on filedocumented in this encounter Care Teams Fish Pitcher Relationship Specialty Start Date End Date Abdifatah Miller MD [address] [facility] [address] [facility] [address] [place] [address] PCP - General Family Medicine 07/12/22 documented as of this encounter
--- OUTSIDE RECORDS SUMMARY | 2024-11-12 08:37 | XMS_ITS | Clinical Summary ---
Author Organization [facility] Address [address] [place] [address] Care Team Providers Care Print Line Inspector Name Role Phone Abdifatah Miller MD Primary Care Provider [phone] Allergies Active Allergy Reactions Criticality Noted Date Comments Penicillins Rash Low 08/05/2016 .pcnallergydetails Medications ibuprofen (ADVIL,MOTRIN ) 800 MG tablet Take 1 tablet by mouth Every 6 (Six) Hours As Needed. for pain 06/27/19 23 Active sertraline (ZOLOFT) 50 MG tablet Take 1 tablet by mouth Daily. 06/08/19 23 Active albuterol sulfate HFA 108 (90 Base) MCG/ACT inhaler Inhale 2 puffs Every 4 (Four) Hours As Needed for Wheezing. Active triamterene-h ydrochlorothi azide (MAXZIDE-25) 37.5-25 MG per tablet Take 1 tablet by mouth Daily. 08/31/19 23 Active colestipol (COLESTID) 1 g tablet Take 1 tablet by mouth Daily. Active metoprolol succinate XL (TOPROL-XL) 50 MG 24 hr tabletIndicat ions:Palpitat ions Take 1 tablet by mouth 2 (Two) Times a Day. 180 tablet 3 05/04/19 25 Active lisinopril (PRINIVIL,ZES TRIL) 10 MG tabletIndicat ions:Hyperten stephany, essential Take 1 tablet by mouth twice daily 180 tablet 10/25/19 25 Active rosuvastatin (CRESTOR) 10 MG tabletIndicat ions:Hypercho lesterolemia Take 1 tablet by mouth once daily 90 tablet 10/25/19 25 Active ezetimibe (ZETIA) 10 MG tablet Take 1 tablet by mouth Daily. 90 tablet 3 10/26/19 25 Active Tirzepatide-W eight Management (ZEPBOUND) 7.5 MG/0.5ML solution auto-injector Indications:O besity (BMI 35.0-39.9 without comorbidity), TED (obstructive sleep apnea) Inject 0.5 mL under the skin into the appropriate area as directed 1 (One) Time Per Week. 0.5 mL 2 10/26/19 25 Active lisinopril (PRINIVIL,ZES TRIL) 10 MG tabletIndicat ions:Hyperten stephany, essential Take 1 tablet by mouth 2 (Two) Times a Day. 180 tablet 3 11/03/19 24 025 Discontinued rosuvastatin (CRESTOR) 10 MG tabletIndicat ions:Hypercho lesterolemia Take 1 tablet by mouth Daily. 90 tablet 3 11/03/19 24 025 Discontinued Tirzepatide-W eight Management (ZEPBOUND) 7.5 MG/0.5ML solution auto-injector Indications:O besity (BMI 35.0-39.9 without comorbidity), TED (obstructive sleep apnea) Inject 0.5 mL under the skin into the appropriate area as directed 1 (One) Time Per Week. 0.5 mL 1 09/21/19 25 025 Discontinued(Re order) Active Problems Problem Noted Date Diagnosed Date Hypercholesterolemia 11/03/2023 Assessment & Plan (10/25/2024 4:25 PM EDT): Patient has not been able to tolerate the Rosuvastatin because of muscle cramping. Plan Zetia 10 mg nightly. Assessment & Plan (05/04/2024 4:24 PM EST): Lipid panel 03/23/2024 triglycerides 184, total cholesterol 226, HDL 38, and LDL 154.93. Plan to continue her rosuvastatin 10 mg Assessment & Plan (11/03/2023 11:27 AM EDT): Patient states that she had recent lab work with her dentist/owner but did not check her cholesterol. She continues on the rosuvastatin 10 mg daily. She has done well with this medication. Plan to continue current medication and to check lipids. She states she would like to order sent to [facility] for her blood work. Anal fistula 06/10/2023 Paroxysmal SVT (supraventricular tachycardia) Overview (09/06/2022): All nonsustained. Assessment & Plan (10/25/2024 4:22 PM EDT): Nonsustained SVT well controlled on Metoprolol. She states she has not noticed any episodes of SVT. Plan to continue Metoprolol Succ. 50 mg Palpitations 08/06/2022 Assessment & Plan (08/17/2024 4:00 PM EDT): Patient states she has not felt like she has had any palpitations and seems to be doing better.Patient states she is doing well on her metoprolol. Plan to continue Metoprolol Succ 50 mg twice a day. Assessment & Plan (05/04/2024 4:22 PM EST): Patient has had a few episodes where she has woke up during the night with the palpitations having to take an extra metoprolol to get them controlled. Patient is requesting her prescription for the metoprolol succinate 50 mg to be for twice a day to help reduce the nighttime palpitations. Assessment & Plan (11/03/2023 11:26 AM EDT): Well-controlled with metoprolol. Patient states she was getting some fatigue and dizziness and has been splitting her 100 mg metoprolol succinate taking 50 mg in the morning and 50 mg at night and this is seem to help with her symptoms. Will change prescription to metoprolol tartrate 50 mg twice a day. Assessment & Plan (08/06/2022 4:37 PM EDT): She was followed by Dr. Alexander in [facility] several years ago. She reports she was told she has regurgitation and one of the valves and was started on lisinopril and metoprolol. She feels like lately the metoprolol 50 mg twice daily is no longer working adequately. She feels like her palpitations have increased and overall more frequent. She also feels like her blood pressure is increasing. Otherwise she denies chest pain, edema, dizziness, syncope. She does have some shortness of air but is only when she is having asthma issues and is relieved by her inhaler. She has a known history of murmur. She has coexisting TED and she has not been using her PAP machine. I am concerned that this is the reasoning of her increased palpitations. EKG today sinus rhythm with a sinus arrhythmia. We will update echo and Holter. After Holter results we can consider increasing beta-sean dose. Blood pressure at goal today. She has coexisting hyperlipidemia and reports she has not had labs in over a year. We will update annual labs. EKG sinus arrythmia Obesity (BMI 35.0-39.9 without comorbidity) 06/16 Assessment & Plan (10/25/2024 4:24 PM EDT): Patient's (Body mass index is 33.15 kg/m .) indicates that they are obese (BMI >30) with health conditions that include obstructive sleep apnea, hypertension, and dyslipidemias . Weight is improving with treatment. BMI is above average; no BMI management plan is appropriate. We discussed portion control, increasing exercise, and pharmacologic options including Zepbound. Continue Zepbound at current dosage. Follow up in 2 months. Assessment & Plan (09/21/2024 5:22 PM EDT): Patient's (Body mass index is 34.21 kg/m .) indicates that they are obese (BMI >30) with health conditions that include obstructive sleep apnea, hypertension, and [...] a day. Plan to increase current medication. Assessment & Plan (08/17/2024 4:02 PM EDT): Patient's (Body mass index is 34.21 kg/m .) indicates that they are obese (BMI >30) with health conditions that include obstructive sleep apnea and hypertension . Weight is improving with treatment. BMI is above average; no BMI management plan is appropriate. We discussed portion control, increasing exercise, and pharmacologic options including Zepbound . Patient reports she has started to plateau on the current dosage and is requesting and increase to the next dose. She has followed up with her GI doctor and has had no issues with constipation. Plan tirzepatide 5mg/0.5ml auto injector weekly. Plan follow up in 4 weeks. Assessment & Plan (05/04/2024 4:20 PM EST): Patient's (Body mass index is 36.04 kg/m .) indicates that they are obese (BMI >30) with health conditions that include obstructive sleep apnea, hypertension, and dyslipidemias . Weight is unchanged. BMI is above average; no BMI management plan is appropriate. We discussed portion control, increasing exercise, and pharmacologic options including Zepbound . Asthma Crohn disease Hypertension, essential Assessment & Plan (10/25/2024 4:22 PM EDT): Hypertension is stable and controlled Continue current treatment regimen. Blood pressure will be reassessed 2 months. Assessment & Plan (05/04/2024 4:21 PM EST): Hypertension is stable and controlled Continue current treatment regimen. Blood pressure will be reassessed 6 weeks . Patient to continue her metoprolol, lisinopril, triamterene-hydrochlorothiazide Assessment & Plan (11/03/2023 11:25 AM EDT): Patient reports she was having some low blood pressures when taking the lisinopril 20 mg daily. She states that she has been splitting it in half and taking 10 in the morning and 10 at night. She states that she has been doing well with it. Will change lisinopril to 10 mg twice a day. Patient to report any change in symptoms. Limit salt intake Increase aerobic exercise IBS (irritable bowel syndrome) Anxiety TED (obstructive sleep apnea) Overview (08/06/2022): Has CPAP but doesn't use it, Dr. Dee Dee Schwartz follows Assessment & Plan (10/25/2024 4:20 PM EDT): History of TED intolerant to cpap. Assessment & Plan (09/21/2024 5:23 PM EDT): Patient has a history of TED and intolerant to pap therapy. Assessment & Plan (08/17/2024 4:02 PM EDT): Patient has a history of TED and intolerant to pap therapy. Started Zepbound and has had a 12 lb weight loss since last visit. Assessment & Plan (05/04/2024 4:20 PM EST): Patient has a history of obstructive sleep apnea. Patient has been intolerant to CPAP therapy. She is requesting Zepbound to not only help with her weight loss but her sleep apnea. Assessment & Plan (11/03/2023 11:25 AM EDT): Intolerant to CPAP therapy. Assessment & Plan (08/06/2022 4:38 PM EDT): Known TED but does not use CPAP. Followed by Dr. Dee Dee Schwartz. Encounters Date Type Department Care Team Description 10/25/2024 11:00 AM EDT Office Visit [facility] [address] [place] [address] Joanie Ross APRN Obesity (BMI 35.0-39.9 without comorbidity) (Primary Dx); Paroxysmal SVT (supraventricular tachycardia); Hypertension, essential; TED (obstructive sleep apnea); Hypercholesterolemia 10/25/2024 Travel 10/24/2024 Refill [facility] [address] [place] [address] Joanie Ross APRN Med Refill 10/11/2024 Telephone [facility] [address] [place] [address] Joanie Ross APRN 10/03/2024 Refill [facility] [address] [place] [phone] Joanie Ross APRN Med Refill 09/20/2024 2:30 PM EDT Office Visit [facility] [address] [place] [address] Joanie Ross, LIYAH Obesity (BMI 35.0-39.9 without comorbidity) (Primary Dx); TED (obstructive sleep apnea) 09/20/2024 Travel 08/20/2024 Patient rounding ([facility]) [facility] [address] [place] [address] Joanie Ross, LIYAH 08/17/2024 3:00 PM EDT Office Visit [facility] [address] [place] [address] Joanie Ross, LIAYH Palpitations (Primary Dx); TED (obstructive sleep apnea); Obesity (BMI 35.0-39.9 without comorbidity) 08/17/2024 Travel from Last 3 Months Immunizations Immunization Administration Dates Next Due Hepatitis A 09/01/2018,02/09/2018 Tdap 07/31/2012 Family History Medical History Relation Name Comments Atrial fibrillation Father Hyperlipidemia Father Hypertension Father Skin cancer Father Breast cancer Mother Heart failure Mother Hypertension Mother Other Mother Pacemaker Breast cancer Sister Crohn's disease Sister Heart disease Sister unknown heart issue Relation Name Status Comments Father Alive Mother Alive Sister Alive Social History Tobacco Use Types Packs/Day Years [...] Orientation Straight 07/05/2022 10 :13 AM EDT Last Filed Vital Signs Vital Sign Reading Time Taken Comments Blood Pressure 122/80 10/25/2024 11:13 AM EDT Pulse 85 10/25/2024 11:13 AM EDT Temperature 36.7 C (98.1 F) 06/10/2023 4:55 PM EST Respiratory Rate 13 06/10/2023 4:55 PM EST Oxygen Saturation 97% 10/25/2024 11:13 AM EDT Inhaled Oxygen Concentration - - Weight 98.9 kg (218 lb) 10/25/2024 11:13 AM EDT Height 172.7 cm (5' 8 ) 10/25/2024 11:13 AM EDT Body Mass Index 33.15 10/25/2024 11:13 AM EDT Plan of Treatment Upcoming Encounters Date Type Department Care Team (Late st Contact Info) Description 12/28/2024 2:30 PM EDT Office Visit [facility] [address] [place] [address] Joanie Ross, LIYAH [address] [place] [address] [place] [address] Health Maintenance Due Date Last Done Comments Annual Gynecologic Pelvic and Breast Exam 1975 Pneumococcal Vaccine 0-49 (1 of 2 - PCV) 08/24/1995 COLOGUARD 2021 COLON CANCER SCREENING 5 YEA R SIGMOIDOSCOPY 2021 COLONOSCOPY [address] CANCER SCREENING 2021 CT COLONOGRAPHY 2021 FECAL OCCULT BLOOD TEST 2021 FIT Testing (1 year) 2021 ANNUAL PHYSICAL 07/08/2022 TDAP/TD VACCINES (2 - Td or Tdap) 07/31/2022 013 COVID-19 Vaccine ( season) 2023 INFLUENZA VACCINE 01/16/2025 LIPID PANEL 03/23/2025 03/23/2024 MAMMOGRAM 10/26/2025 10/27/2023, 10/27/2023 HEPATITIS C SCREENING Completed 08/05/2016 Procedures Procedure Name Priority Date/Time Associated Diagnosis Comments SCANNED - LABS 09/25/2024 SCANNED - LABS 09/06/2024 LIPID PANEL Routine 03/23/2024 Hypercholesterolemia from Last 3 Months or Most Recently Relevant to Health Maintenance Results * LABS SCANNED (09/25/2024) Only the most recent of2 resultswithin the time period is included. Joanie Ross [employer]IC[employer] LAB BLOOD ORDERABLES Final R esult * Lipid Panel (03/23/2024) Blood us Joanie Ross [employer] LAB BLOOD ORDERABLES Final R esult [facility]
[address] [place] [address], from Last 3 Months or Most Recently Relevant to Health Maintenance Insurance [facility] [facility] PPO Care Teams Print Line Inspector Relationship Specialty Start Date End Date Abdifatah Miller MD [address] [place] [address] [place] [address] [place] [address] PCP - General Family Medicine 07/12/22
--- OUTSIDE RECORDS SUMMARY | 2024-11-12 08:37 | XMS_ITS | Encounter Summary ---
Author Organization [facility] Address [address] [place] [address] Care Team Providers Care Terminal Gauger Supervisor Name Role Phone None, None Primary Care Provider [phone] Pcp, No Primary Care Provider Unavailabl e Encounter Details Date Type Department Care Team (Late st Contact Info) Description 10/08/2022 [facility] [address] [place] [address] Lisa Cooley, BOX FINISHER [address] [place] [id number] Obstructive sleep apnea (adult) (pediatric) (Primary [...] documented as of this encounter Care Teams Terminal Gauger Supervisor Relationship Specialty Start Date End Date None, None [address] [place] [address] PCP - General NONE FOUND 07/14/22 11/10/23 [place] [address] PCP - General Family Medicine 03/30/24 documented as of this encounter
--- OUTSIDE RECORDS SUMMARY | 2024-11-12 08:37 | XMS_ITS | Clinical Summary ---
Author Organization [employer] ([place], [place], [place], [place]) Address [address] [place] [address] Care Team Providers Care Parking Meter Installer Name Role Phone Abdifatah Miller MD Primary Care Provider [phone] Allergies Active Allergy Reactions Criticality Noted Date [...] Date Mark rded Speak language other than Andorran at home Not on file 05/07/2023 Want [...] 02/21/2023 12:24 PM EST Plan of Treatment Health Maintenance Due Date Last Done Comments CT Colonography 1976 Colonoscopy 1976 Colorectal Cancer Screening 1976 FOBT/FIT 1976 Fit-DNA (Cologuard) 1976 Sigmoidoscopy 1976 Depression Screening (12+) 1988 HIV Screening 08/24/1991 Hepatitis C Screening 1994 Pneumococcal Vaccine: 0-49 Years (1 of 2 - PCV) 1995 Pap Smear 1997 Breast Cancer Screening 2016 Lipid Panel 2021 DTAP/TDAP/TD VACCINES (2 - Td or Tdap) 07/31/2022 COVID-19 VACCINE ( - 2023- season) 2023 Tobacco Cessation Counseling and Screening (12+) 02/1802/18/2023 Influenza Vaccine (#1) 2024 Insurance BLUE CROSS/BLUE SHIELD Care Teams Parking Meter Installer Relationship Specialty Start Date End Date Abdifatah Miller MD [address] [place] [address] PCP - General Family Medicine 02/18/23
[2024-11-12 10:13] LABS: Alanine Aminotransferase 40 U/L (12-78); Albumin Level 4.5 g/dl (3.5-5.0); Albumin/Globulin Ratio 1.5 (1.1-1.8); Alkaline Phosphatase 88 U/L (38-126); Anion Gap 12.4 mEq/L (5-15); Aspartate Amino Transferase 31 U/L (14-36); Bilirubin,Total 0.3 mg/dl (0.2-1.3); Blood Urea Nitrogen 19 mg/dl (7-17); Calcium 11.0 mg/dl (8.4-10.2); Carbon Dioxide 28 mmol/L (22.0-30.0); Chloride 102 mmol/L (98-107); Creatinine,Serum 0.90 mg/dl (0.52-1.04); Estimated Glomerular Filt Rate 67 ml/min (>60); GFR (African American) 81 ML/MIN (>60); Globulin 3.1 g/dL (1.3-3.2); Glucose 94 mg/dl (74-100); Potassium 4.4 mmoL/L (3.5-5.1); Sodium 138 mmol/L (136-145); Total Protein,Serum 7.6 g/dl (6.3-8.2)
[2024-11-14 04:48] LABS: ALT (SGPT) P5P 40 IU/L (0-40); AST (SGOT) P5P 21 IU/L (0-40); Alpha 2-Macroglobulins, Qn 289 mg/dL (110-276); Bilirubin, Total 0.3 mg/dL (0.0-1.2); Cholesterol, Total 230 mg/dL (100-199); GGT 35 IU/L (0-60); Glucose 89 mg/dL (70-99); Triglycerides 250 mg/dL (0-149)
== END 2024-11-12 23:59 | disposition home or self-care (01) ==
PROVIDERS: PCP Family Medicine; Visit Provider Nurse Practitioner Family
DX: K76.0 Fatty (change of) liver, not elsewhere classified (principal)
CPT/HCPCS: 36415; 76705; 80053; 80074; 81596; 82247; 82465; 82947; 82977; 83521; 84450; 84460; 84478

== ENCOUNTER 2025-01-21 15:02 | Outpatient (CLI) | payer BC, SELFPAY ==
--- NOTE | 2025-01-21 15:04 | MM_ITS ---
PROCEDURE INFORMATION: Exam: MG Bilateral Screening 3D Mammography Exam date and time: 01/21/2025 3:09 PM Age: 49 years old Clinical indication: Screening mammogram TECHNIQUE: Imaging protocol: Bilateral Screening tomosynthesis and 2D mammography including computer-aided detection (CAD) when performed. COMPARISON: 1. MG MM DIG MAMM DX UNILAT RT CAD 06/05/2024 3:19 PM 2. MG GINI SCRN MAMMO W/CAD BILAT 10/27/2023 9:26 AM 3. MG GINI SCRN MAMMO W/CAD BILAT 07/20/2021 9:31 AM 4. MG GINI SCRN MAMMO W/CAD BILAT 03/07/2020 2:44 PM FINDINGS: MAMMOGRAPHY: Breast composition: There are scattered areas of fibroglandular density. Mass: None. Architectural distortion: No new or suspicious architectural distortion. Calcifications: No new or suspicious calcifications are present Asymmetric density: No new or suspicious asymmetric density is present Skin thickening: None. Axillary adenopathy: None. IMPRESSION: No mammographic evidence of malignancy. Recommend annual screening mammography unless otherwise clinically indicated. ASSESSMENT: BI-RADS category 1: Negative.
--- OUTSIDE RECORDS SUMMARY | 2025-01-21 15:05 | XMS_ITS | Referral Summary ---
Author Organization [facility] ([place], [place], [place], [place]) Address [address] [place] [address] Care Team Providers Care Energy Consultant Name Role Phone Abdifatah Miller MD Primary Care Provider [phone] [phone] Allergies Active Allergy Reactions Criticality Noted Date [...] Date Mark rded Speak language other than Taiwanese at home Not on file 05/07/2023 Want [...] Treatment Not on file Insurance [id number] [place] [id number] BLUE CROSS/BLUE SHIELD Care Teams Energy Consultant Relationship Specialty Start Date End Date Abdifatah Miller MD [address] [place] [id number] PCP - General Family Medicine 02/18/23
--- OUTSIDE RECORDS SUMMARY | 2025-01-21 15:05 | XMS_ITS | Clinical Summary ---
Author Organization [facility] Address [address] [place] [address] Care Team Providers Care Road Patcher Name Role Phone Abdifatah Miller MD Primary Care Provider [phone] [phone] Allergies Active Allergy Reactions Criticality Noted Date Comments Penicillins Rash Low 08/05/2016 .pcnallergydetails Medications ibuprofen (ADVIL,MOTRIN) 800 MG tablet Take 1 tablet by mouth Every 6 (Six) Hours As Needed. for pain 3 Active sertraline (ZOLOFT) 50 MG tablet Take 1 tablet by mouth Daily. 3 Active albuterol sulfate HFA 108 (90 Base) MCG/ACT inhaler Inhale 2 puffs Every 4 (Four) Hours As Needed for Wheezing. Active triamterene-hyd rochlorothiazid e (MAXZIDE-25) 37.5-25 MG per tablet Take 1 tablet by mouth Daily. 3 Active colestipol (COLESTID) 1 g tablet Take 1 tablet by mouth Daily. Active metoprolol succinate XL (TOPROL-XL) 50 MG 24 hr tabletIndicatio ns:Palpitations Take 1 tablet by mouth 2 (Two) Times a Day. 180 tablet 3 5 Active lisinopril (PRINIVIL,ZESTR IL) 10 MG tabletIndicatio ns:Hypertension , essential Take 1 tablet by mouth twice daily 180 tablet 5 Active rosuvastatin (CRESTOR) 10 MG tabletIndicatio ns:Hypercholest erolemia Take 1 tablet by mouth once daily 90 tablet 5 Active ezetimibe (ZETIA) 10 MG tablet Take 1 tablet by mouth Daily. 90 tablet 3 Active Tirzepatide-Gildardo ght Management (ZEPBOUND) 7.5 MG/0.5ML solution auto-injectorIn dications:Obesi ty (BMI 35.0-39.9 without comorbidity),OS A (obstructive sleep apnea) Inject 0.5 mL under the skin into the appropriate area as directed 1 (One) Time Per Week. 0.5 mL 2 Active Active Problems Problem Noted Date Diagnosed [...] she had recent lab work with her hop strainer but did not check her cholesterol. She continues on the rosuvastatin 10 mg daily. She has done well with this medication. Plan to continue current medication and to check lipids. She states she would like to order sent to [facility] for her blood work. Anal fistula [...] She was followed by Dr. Alexander in [facility] several years ago. She reports she was [...] Encounters Date Type Department Care Team Description 11/23/2024 Refill [facility] [address] [place] [place] [address] Joanie Ross APRN Med Refill 10/25/2024 11:00 AM EDT Office Visit [facility] [address] [place] [address] Joanie Ross, SUPERVISOR PAPER MACHINE Obesity (BMI 35.0-39.9 without comorbidity) (Primary Dx); Paroxysmal SVT (supraventricular tachycardia); Hypertension, essential; TED (obstructive sleep apnea); Hypercholesterolemia 10/25/2024 Travel 10/24/2024 Refill [facility] [address] [place] [address] Joanie Ross, SUPERVISOR PAPER MACHINE Med Refill from Last 3 Months Immunizations Immunization Administration [...] Care Team (Late st Contact Info) Description 03/07/2025 1:00 PM EST Office Visit [facility] [address] [place] [address] Seivers, Joanie Coleman, SUPERVISOR PAPER MACHINE [address] [place] [address] [place] [address] Health Maintenance Due Date Last Done Comments [...] (2 - Td or Tdap) 07/31/2022 013 INFLUENZA VACCINE 11/16/2024 LIPID PANEL 03/23/2025 03/23/2024 MAMMOGRAM 10/26/2025 10/27/2023, 10/27/2023 HEPATITIS C SCREENING Completed 08/05/2016 Procedures Procedure Name Priority Date/Time Associated Diagnosis Comments LIPID PANEL Routine 03/23/2024 Hypercholesterolemia from Last 3 Months or Most Recently Relevant to Health Maintenance Results * Lipid Panel (03/23/2024) Blood us Joanie Ross SUPERVISOR PAPER MACHINE LAB BLOOD ORDERABLES Final R esult [facility]
[address] [place] [id number], from Last 3 Months or Most Recently Relevant to Health Maintenance Insurance Care Teams Road Patcher Relationship Specialty Start Date End Date Abdifatah Miller MD [address] [place] [facility] [address] [place] [address] PCP - General Family Medicine 07/12/22
--- OUTSIDE RECORDS SUMMARY | 2025-01-21 15:05 | XMS_ITS | Clinical Summary ---
Author Organization [facility] ([place], [place], [place], [place]) Address [address] [place] [address] Care Team Providers Care Computed Tomography Scanner Operator Name Role Phone Abdifatah Miller MD Primary Care Provider [phone] [phone] Allergies Active Allergy Reactions Criticality Noted Date [...] Date Mark rded Speak language other than [place]ine[place] at home Not on file 05/07/2023 Want [...] VACCINES (2 - Td or Tdap) 07/31/2022 Tobacco Cessation Counseling and Screening (12+) 02/1802/18/2023 COVID-19 VACCINE ( - 2023- season) 2024 Influenza Vaccine (#1) 2024 Insurance BLUE CROSS/BLUE SHIELD Care Teams Computed Tomography Scanner Operator Relationship Specialty Start Date End Date Abdifatah Miller MD [address] [place] [address] PCP - General Family Medicine 02/18/23
--- OUTSIDE RECORDS SUMMARY | 2025-01-21 15:05 | XMS_ITS | Encounter Summary ---
Author Organization [facility] Address [address] [place] [address] Care Team Providers Care Frontload Driver Name Role Phone Abdifatah Miller MD Primary Care Provider [phone] Reason for Visit * Reason Onset Date Comments Med Refill 11/23/2024 Encounter Details Date Type Department Care Team (Late st Contact Info) Description 11/23/2024 Refill [facility] [address] [place] [address] SeJoanie syed, EXPERIMENTAL MECHANIC [address] [place] [address] [place] [address] Med Refill Social History Tobacco [...] encounter Miscellaneous Notes * Telephone Encounter - Bertha Mays RN - 01/16/2025 9:38 AM EDT I sent in a new PA and got approval. * Telephone Encounter - Rebeca Singletary MA - 12/13/2024 8:57 AM EDT Obesity and TED was the 2 Dx listed for the PA. * Telephone Encounter - Rebeca Singletary MA - 12/12/2024 1:20 PM EDT Prior auth for Zepbound has been denied through insurance. PA determination is in patient's chart under media. * Telephone Encounter - Luigi Albarran CMA - 11/23/2024 9:08 AM EDT LIPID PANEL IN CHART. NO A1C IN THE LAST YEAR. OK TO REFILL? documented in this encounter Plan of Treatment Upcoming Encounters Date Type Department Care Team (Late st Contact Info) Description 03/07/2025 1:00 PM EST Office Visit [facility] [address] [place] [address] Joanie Ross, EXPERIMENTAL MECHANIC [address] [place] [address] [place] [address] documented as of this encounter Visit Diagnoses Diagnosis Obesity (BMI 35.0-39.9 without comorbidity) TED (obstructive sleep apnea) Obstructive sleep apnea (adult) (pediatric) documented in this encounter Care Teams Frontload Driver Relationship Specialty Start Date End Date Abdifatah Miller MD [address] [place] [address] PCP - General Family Medicine 07/12/22 documented as of this encounter
--- OUTSIDE RECORDS SUMMARY | 2025-01-21 15:05 | XMS_ITS | Encounter Summary ---
Author Organization [facility] Address [address] [place] [address] Care Team Providers Care Sales Planning Coordinator Name Role Phone Pcp, No Primary Care Provider Unavailabl e Encounter Details Date Type Department Care Team ([facility] st Contact Info) Description 10/27/2023 Outside Procedure External Location [address] [place] [address] Maycol Buckley RN [address] [place] [address] Social History Tobacco Use Types [...] AM EDT Narrative 10/27/2023 3:33 [place] [address] Name: SAIRA BALLESTEROS Exam Date: 10/27/2023 : 1975 Age 48 years Gender: F Physician: MAYCOL BUCKLEY Facility: [facility] Facility HSV: Outpatient Exam: GINI SCRN MAMMO [...] Thank you for referring SAIRA BALLESTEROS to [facility]. Legally authenticated by TRENA MACK 2023-10-27 09:52:19 Procedure Note Provider, [facility] - 10/27/2023 [place] [address] Name: SAIRA BALLESTEROS Exam Date: 10/27/2023 : 1975 Age 48 years Gender: F Physician: MAYCOL BUCKLEY Facility: [facility] Facility HSV: Outpatient Exam: GINI SCRN MAMMO [...] Thank you for referring SAIRA BALLESTEROS to [facility]. Legally authenticated by TRENA MACK 2023-10-27 09:52:19 Maycol Buckley RN IMG BI PROCEDURES Final Result documented in this encounter Visit Diagnoses Not on filedocumented in this encounter Additional Health Concerns Assessment Noted Time A fall risk assessment has been complete d for the patient 10/07/2023 9:12 AM EDT A Body Mass Index follow-up plan has been documented for the patient 10/07/2023 1:11 PM EDT documented as of this encounter Care Teams Sales Planning Coordinator Relationship Specialty Start Date End Date Pcp, [place] [address] PCP - General Family Medicine 03/30/24 documented as of this encounter
--- OUTSIDE RECORDS SUMMARY | 2025-01-21 15:05 | XMS_ITS | Encounter Summary ---
Author Organization [facility] Address [address] [place] [address] Care Team Providers Care Layboy Operator Name Role Phone Pcp, No Primary Care Provider Unavailabl e Encounter Details Date Type Department Care Team ([facility] [facility] st Contact Info) Description 10/08/2022 [facility] [address] [place] [address] Lisa Cooley, PHYSICS PROFESSOR [address] [place] [address] Obstructive sleep apnea (adult) (pediatric) (Primary [...] documented as of this encounter Care Teams Layboy Operator Relationship Specialty Start Date End Date Pcp, No [address] [place] [address] PCP - General Family Medicine 03/30/24 documented as of this encounter
--- OUTSIDE RECORDS SUMMARY | 2025-01-21 15:05 | XMS_ITS | Clinical Summary ---
Author Organization [facility] Address [address] [place] [address] Care Team Providers Care E Commerce Merchandising Coordinator Name Role Phone Pcp, No Primary [...] (2 - Td or Tdap) 07/31/2022 07/31/2012 [id number] Vaccine (1 - season) 2024 [facility]-Influenza Vaccine (#1) 2024 [facility]-Depression Screening 05/02/2025 05/02/2024, 04/18 [facility]-Zoster Vaccines (1 of 2) 2026 [facility]-Pap Smear 10/06/2026 10/07/2023, 07/20/2022 [facility]-Cervical Cancer Screening 10/06/2028 [facility]-HPV/Cotest 10/06/2028 10/07/2023, 04/0 07/2022, 07/20/2022 [facility]-HIV Screening Completed 08/05/2016 [facility]-Hepatitis C [...] Pap, Source Cx/Vaginal 10/12/2023 1:39 PM EDT [facility] EER Referred ThinPrep Pap and HPV See Note 10/12/2023 1:39 PM EDT [facility] PAP, THINPREP Normal 10/12/2023 1:39 PM EDT [facility] High Risk HPV Normal 10/12/2023 1:39 PM EDT [facility]) Swab Vaginal and cervical cytologic material / Unknown Non-blood Collection / Unknown 10/07/2023 9:43 AM EDT 10/07/2023 12:39 PM EDT Narrative [facility]) - 10/12/2023 1:39 PM EDT Authorized individuals can access the [facility] using the following link: [email or web address] Performed By: [facility] [address] [place] [id number] Motion Picture Projectionist Apprentice: Ambrocio Cantor MD, PhD CLIA Number: [id number] SPECIMEN PART A. Cervical, Endocervical, Vaginal, ThinPrep Pap (Drop Worker) CYTOLOGY HX Date of Last Menstrual Period: n FINAL DIAGNOSIS INTERPRETATION: Negative for Intraepithelial Lesion or Malignancy. SPECIMEN ADEQUACY:Satisfactory for evaluation. Endocervical/transformation zone component present. Electronically Signed Out : Performed by: [facility] [address] [place] [address] [place] [address] Jolly Frias MD, HR-HPV: Negative Test performed by the FDA-approved [employer] (Gen-Probe) APTIMA HPV test, which detects HPV genotypes: 16, 18, 31, 33, 35, 39, 45, 51, 52, 56, 58, 59, 66, and 68. Performed by: [facility] [address] [place] [address] [place] [address] Jolly Frias MD, us Kari Moscoso RN LAB REF LAB BLOOD AND FLUID OR D Final Result Performing Organization Address City/[facility]/ZIP Co de Phone Number [facility] [address] [place] [id number] * HIV 1 & 2 Antibody/Antigen Screen (08/05/2016 11:09 AM EDT) Pathologist [facility] HIV 1 Result NONREACTIVE Screening for HIV [...] Most Recently Relevant to Health Maintenance Insurance ANTHEM Care Teams E Commerce Merchandising Coordinator Relationship Specialty Start Date End [place] [address] PCP - General Family Medicine 03/30/24
== END 2025-01-21 23:59 | disposition home or self-care (01) ==
LOC: RAD 15:02
PROVIDERS: PCP Physician Assistant; Visit Provider Family Medicine
DX: Z12.31 Encounter for screening mammogram for malignant neoplasm of breast (principal); R92.323 Mammographic fibroglandular density, bilateral breasts
CPT/HCPCS: 77063; 77067

== ENCOUNTER 2025-04-04 14:04 | Outpatient (CLI) | payer BC, SELFPAY ==
--- OUTSIDE RECORDS SUMMARY | 2023-12-22 10:15 | XMS_ITS ---
[facility] Organization [facility] Address [address] [place] [id number] Care Team Providers Care Bolt Threader Name Role Phone Gina Steen Primary Care Provider Kathi Rivero Unavailable [phone] Allergies Allergen (clinical drug ingredient) Drug/Non Drug Allergy documented on EMR Reaction Allergy Type Onset Date Status Substance with penicillin structure and antibacterial mechanism of action (substance) Penicillins Unknown Drug Allergy Active Results Component Value Reference Range Notes CBC Venipuncture (in house) Reviewed date:12/23/2023 01:00:43 PM Interpretation: Performing Lab: Notes/Report: wbc 16.4 3.5 - 10 lymph 25.4 15 - 50 mid 5.3 2 - 15 gran 69.3 35 - 80 rbc 4.71 3.5 - 5.5 hgb 14.0 11.5 - 16.5 hct 42.8 35 - 55 mcv 90.9 75 - 100 mch 29.8 25 - 35 mchc 32.7 31 - 38 platlet 175 100 - 400 CXR Reviewed date:12/25/2023 10:23:29 PM Interpretation: Performing Lab: Notes/Report: REASON FOR VISIT chest congestion; [facility] f/u Medications Medication SIG (Take, Route, Frequency, Duration) Notes Start Date End Date Status Doxycycline Monohydrate 100 MG 1 tablet Orally every 12 hrs; Duration: 7 days 12/22/2023 Active Albuterol Sulfate (2.5 MG/3ML) 0.083% 3 ml Inhalation every 6 hrs, prn 12/22/2023 Active Zithromax 500 MG 1 tablet Orally kelly y; Duration: 5 days 02/01/2023 Not-Taking Doxycycline Monohydrate 100 MG 1 tablet Orally Twice a day Not-Taking Ciprofloxacin HCl 500 MG 1 tablet Orally every 12 hrs 11/02/2022 Not-Taking Flovent Diskus 100 MCG/ACT 1 puff Inhala tion Twice a day; Duration: 30 days Active Triamterene-HCTZ 37.5-25 MG 1 tab(s) orally once a day; Duration: 90 days Active Nebulizer System All-In-One - as directed 12/22/2023 Active Lisinopril 20 MG 1 tab(s) orally once a day; Duration: 90 Active Zoloft 50 MG 1 tab(s) orally once a day; Duration: 90 Active Levaquin 750 MG 1 tablet Orally Once a day; Duration: 10 day(s) 04/04/2023 Active Ventolin HFA 108 (90 Base) MCG/ACT 1-2 puff(s) inhaled qid, prn 03/13/2021 Active Metoprolol Succinate ER 50 MG Take 1 tablet by mouth twice daily; Duration: 90 Active Colestipol HCl 1 GM 1 tab Orally Once a day Active Rosuvastatin Calcium 10 MG 1 tablet Oral ly Once a day Active Bromfed DM 2-30-10 MG/5ML 5-10 mL Orally four times a day, prn 12/22/2023 Active Vital Signs Blood pressure systolic 116 mm Hg 12/22/19 24 Blood pressure diastolic 68 mm Hg 024 Heart Rate 74 /min 12/22/2023 Height 67.50 in 12/22/2023 Weight 236.2 lbs 12/22/2023 BMI 36.44 kg/m2 12/22/2023 Encounters Encounter Location Date Provider Diagnosis [facility] [address] [facility] [address] [place], [place] [id number] 12/22/2023 Kathi Rivero Acute URI J06.9 ; Bronchitis J40 and Asthma J45.909 Assessments Encounter Date Diagnosis (ICD Code) Assessment Notes Treatment Notes Treatment Clinical Notes Section Notes 12/22/2023 Acute URI (ICD-10 - J06.9) 12/22/2023 Bronchitis (ICD-10 - J40) 12/22/2023 Asthma (ICD-10 - J45.909) Plan Of Treatment Medication Medication Name Sig Start Date Stop Date Notes Doxycycline Monohydrate 100 MG 1 tablet Orally every 12 hrs; Duration: 7 days 12/22/2023 Albuterol Sulfate (2.5 MG/3M L) 0.083% 3 ml Inhalation every 6 hrs, prn 12/22/2023 Nebulizer System All-In-One - as directed 12/22/2023 Bromfed DM 2-30-10 MG/5ML 5-10 mL Orally four times a day, prn 12/22/2023 Next Appt Details Follow Up: via phone to repo rt test results, Reason: Progress Notes * Saira BALLESTEROSDOB: 7 (49 yo F)Acc No.[id number]:12/22/2023 Progress Notes Patient: Saira DAVIS Provider: ALEX Parry :1975 A ge:48 Y S ex:Female Date:12/22/2023 Address:[address], [id number] Pcp:Gina Steen Subjective: * Chief Complaints: * 1 . chest congestion; [facility] f/u. * HPI: E NT/respiratory: 48 year old female presents with c/o chest congestion P t presents today with chest congestion. Pt [facility] she is having a cough and chest congestion. Pt sts she was at [facility] a week ago and is still having the same symptoms. Pt sts has not had a sore throat, but that her lymph nodes have been swollen and thinks it may be laryngitis. Pt sts that when she coughs she is having yellowish colored sputum. She was given a zpack, steroids, and cough pills at the [facility]. She was negative for covid/flu.. * ROS: D ERMATOLOGY: no R tasha. n o H elena. G ASTROENTEROLOGY: no V omiting. n o D iarrhea. U ROLOGY: no D ifficulty urinating. n o B lood in urine. * Medical History: C rohn's, dysrrhythmia-treated with Beta blockers, Normal echocardiogram 07/21, Environmental allergies-takes allergy shots. * Surgical History: G hasmukhbertin . * Hospitalization/Major Diagno stic Procedure: H ER-back pain 03/22/16, [facility] ER-back pain 03.25.16, [facility] Viral Menigitis 03/26-03/30/16. * Family History: F ather: alive 62 yrs, HBP. M other: alive 59 yrs. P aternal Grand Father: .?Paternal Grand Mother: . M aternal Grand Father: . M aternal Grand Mother: . 4 sister(s) - healthy. . * Social History: C URRENT TOBACCO USE S moking Status: Patient does NOT smoke. C affeine: yes, frequency:daily. Exercise: yes. Home smoke detector use: yes. Marital Status: . New since last visit: none. Occupation: yes. Past smoking status: no, Smoking status: Does not smoke. Occup. exposure: none. Recreational drug use: no. Alcohol: no. Sexually active: yes. Travel ouside [place]: no. * Medications: T aking Colestipol HCl 1 GM Tablet 1 tab Orally Once a day , Taking Rosuvastatin Calcium 10 MG Tablet 1 tablet Orally Once a day , Taking Ventolin HFA 108 (90 Base) MCG/ACT Aerosol Solution 1-2 puff(s) inhaled qid, prn , Taking Metoprolol Succinate ER 50 MG Tablet Extended Release 24 Hour Take 1 tablet by mouth twice daily , Taking Levaquin 750 MG Tablet 1 tablet Orally Once a day , Taking Flovent Diskus 100 MCG/ACT Aerosol Powder Breath Activated 1 puff Inhalation Twice a day , Taking Triamterene-HCTZ 37.5-25 MG Tablet 1 tab(s) orally once a day , Taking Lisinopril 20 MG Tablet 1 tab(s) orally once a day , Taking Zoloft 50 MG Tablet 1 tab(s) orally once a day , Not-Taking Zithromax 500 MG Tablet 1 tablet Orally daily , Not- Taking Doxycycline Monohydrate 100 MG Tablet 1 tablet Orally Twice a day , Not-Taking Ciprofloxacin HCl 500 MG Tablet 1 tablet Orally every 12 hrs , Medication List reviewed and reconciled with the patient * Allergies: P enicillins. Objective: * Vitals: W t:236.2, Temp:98.2, BP:116/68, HR:74, Nurse:FAWN, Ht: 67.50, BMI:36.44. * Examination: E NT/Respiratory: General Appearance: N AD. E ars: a uditory canals normal bilaterally, TM's WNL. N ose : turbinates red, congested. S inuses : tender maxillary sinuses bilaterally. O ral cavity : erythema without exudate on pharynx, PND present. N tiara : n o cervical lymphadenopathy. H eart : R RR, normal S1 S2, no murmurs. L ungs: expiratory wheezes, no rales. Assessment: * Assessment: 1. A ky URI - J06.9 (Primary) 2 . B codey - J40 3 .?Asthma - J45.909 Plan: * Treatment: 2. B fredatis Start Albuterol Sulfate Nebulization Solution, (2.5 MG/3ML) 0.083%, 3 ml, Inhalation, every 6 hrs, prn, 60, Refills 2; S tart Doxycycline Monohydrate Tablet, 100 MG, 1 tablet, Orally, every 12 hrs, 7 days, 14 Tablet, Refills 0. L AB: CBC Venipuncture (in house) (Collection Date & Time - 12/22/2023) Value Reference Range w bc 16.4 3.5 - 10 * l ymph 25.4 15 - 50 * m id 5.3 2 - 15 * g ran 69.3 35 - 80 * r bc 4.71 3.5 - 5.5 * h gb 14.0 11.5 - 16.5 * h ct 42.8 35 - 55 * m cv 90.9 75 - 100 * m ch 29.8 25 - 35 * m chc 32.7 31 - 38 * p latlet 175 100 - 400 * Taryn Vickers 12/22/2023 3:48: 30 PM > , Provider reviewed results while patient in office.Kathi Rivero 12/23/2023 1:00:40 PM > ?Imaging: CXR (Performed Date - 12/23/2023)* Kathi Rivero 12/25/2023 10: 23:21 PM > see TE 3.?Asthma? Start Nebulizer System All-In-One Miscellaneous, -, as directed, 1, Refills 0.?? * Follow Up: v ia phone to report test results * Images: Billing Information: * Visit Code: 43333 Office Visit, Est Pt., Level 3. * Procedure Codes: * Electronic signature of ALEX Greene on 04/04/2025 at 02:24 PM EST Sign off status: Pending * Provider: ALEX Parry Date: 0 12/22/2023 Generated for Ephraimi edwin/Rudolph/eTransmitting on: 1 06/05/2024 02:24 PM EST History and Physical Notes * HPI (History of Present Illness) Category Sub-Category Detail Notes Category Not es ENT/respiratory chest congestion Pt presents tod ay with chest congestion. Pt sts she is having a cough and chest congestion. Pt sts she was at [facility] a week ago and is still having the same symptoms. Pt sts has not had a sore throat, but that her lymph nodes have been swollen and thinks it may be laryngitis. Pt sts that when she coughs she is having yellowish colored sputum. She was given a zpack, steroids, and cough pills at the [facility]. She was negative for covid/flu. Examination Category Sub-Category Detail Notes Category Not es ENT/Respiratory Oral cavity : erythema without exudate on pharynx, PND present Sinuses : tender maxillary sin uses bilaterally Ears: auditory canals norm al bilaterally, TM's WNL Neck : no cervical lymphade nopathy Heart : RRR, normal S1 S2, n o murmurs Lungs: expiratory wheezes, no rales General Appearance: NAD Nose : turbinates red, tomas ested
--- OUTSIDE RECORDS SUMMARY | 2024-05-09 04:45 | XMS_ITS ---
Author [facility] Address [address] [place] [id number] Care Team Providers Care Nurse Transitional Name Role Phone Gina Steen Primary Care Provider Kathi Rivero [phone] Allergies Allergen (clinical drug ingredient) Drug/Non Drug Allergy documented on EMR Reaction Allergy Type Onset Date Status Substance with penicillin structure and antibacterial mechanism of action (substance) Penicillins Unknown Drug Allergy Active Results Component Value Reference Range Notes Ultrasound : Breast, right Reviewed date:05/24/2024 05:08:38 PM Interpretation:needs additional imaging Performing Lab: Notes/Report: needs additional imaging REASON FOR VISIT poss cyst on her breast Medications Medication SIG (Take, Route, Frequency, Duration) Notes Start Date End Date Status Triamterene-HCTZ 37.5-25 MG 1 tab(s) ora lly once a day; Duration: 90 days Active Zoloft 50 MG 1 tab(s) orally once a day; Duration: 90 Active Lisinopril 20 MG 1 tab(s) orally once a day; Duration: 90 Active Flovent Diskus 100 MCG/ACT 1 puff Inhala tion Twice a day; Duration: 30 days Active Metoprolol Succinate ER 50 MG Take 1 tablet by mouth twice daily; Duration: 90 Active Clindamycin HCl 300 MG 1 capsule Orally every 12 hrs; Duration: 10 day(s) 05/09/2024 Active Ventolin HFA 108 (90 Base) MCG/ACT 1-2 puff(s) inhaled qid, prn 03/13/2021 Active Rosuvastatin Calcium 10 MG 1 tablet Oral ly Once a day Active Colestipol HCl 1 GM 1 tab Orally Once a day Active Zepbound 2.5 MG/0.5ML 0.5 mL Subcutaneou s; Duration: 30 day(s) Active Vital Signs Blood pressure systolic 126 mm Hg 05/09/19 25 Blood pressure diastolic 86 mm Hg 025 Heart Rate 64 /min 05/09/2024 Height 67.50 in 05/09/2024 Weight 239.4 lbs 05/09/2024 BMI 36.94 kg/m2 05/09/2024 Encounters Encounter Location Date Provider Diagnosis [facility] [address] [place] [id number] 05/09/2024 Kathi Josefa Breast abscess N61.1 Assessments Encounter Date Diagnosis (ICD Code) Assessment Notes Treatment Notes Treatment Clinical Notes Section Notes 05/09/2024 Breast abscess (ICD-10 - N61.1) Apply moist heat. Plan Of Treatment Medication Medication Name Sig Start Date Stop Date Notes Clindamycin HCl 300 MG 1 capsule Orally every 12 hrs; Duration: 10 day(s) 05/09/2024 Treatment Notes Assessment Notes Breast abscess Apply moist heat. Next Appt Details Follow Up: prn, Reason: Progress Notes * Saira BALLESTEROSDOB: 7 (49 yo F)Acc No.[id number]:05/09/2024 Progress Notes Patient: Saira DAVIS Provider: ALEX Parry :1975 A ge:48 Y S ex:Female Date:05/09/2024 Address:[address], [id number] Pcp:Gina Steen Subjective: * Chief Complaints: * 1 . Poss cyst on her breast. * HPI: G YN: 48 year old female presents with c/o breast complaints P t presents today with c/o possible cyst on the right breast next to the breast bone. Pt sts that there has been a pea sized knot there for a while but sts that within the last week it has got larger in size. * ROS: D ERMATOLOGY: no R tasha. n o H elena. G ASTROENTEROLOGY: no V omiting. n o D iarrhea. U ROLOGY: no D ifficulty urinating. n o B lood in urine. * Medical History: C rohn's, dysrrhythmia-treated with Beta blockers, Normal echocardiogram 07/21, Environmental allergies-takes allergy shots. * Surgical History: Meryl allbadraeann , Hysterectomy 04/03/2024. * Hospitalization/Major Diagno stic Procedure: H ER-back pain 03/22/16, [facility] ER-back pain 03.25.16, [facility] Viral Menigitis 03/26-03/30/16. * Family History: F [...] ouside [place]: no. * Medications: T aking Zepbound 2.5 MG/0.5ML Solution Auto-injector 0.5 mL Subcutaneous , Taking Colestipol HCl 1 GM Tablet 1 tab Orally Once a day , Taking Rosuvastatin Calcium 10 MG Tablet 1 tablet Orally Once a day , Taking Ventolin HFA 108 (90 Base) MCG/ACT Aerosol Solution 1-2 puff(s) inhaled qid, prn , Taking Metoprolol Succinate ER 50 MG Tablet Extended Release 24 Hour Take 1 tablet by mouth twice daily , Taking Flovent Diskus 100 MCG/ACT Aerosol Powder Breath Activated 1 puff Inhalation Twice a day , Taking Lisinopril 20 MG Tablet 1 tab(s) orally once a day , Taking Zoloft 50 MG Tablet 1 tab(s) orally once a day , Taking Triamterene-HCTZ 37.5-25 MG Tablet 1 tab(s) orally once a day , Medication List reviewed and reconciled with the patient * Allergies: P enicillins. Objective: * Vitals: W t:239.4, Temp:98.2, BP:126/86, HR:64, Nurse:ALESSIA, Ht: 67.50, BMI:36.94. * Examination: G eneral Examination: General Appearance: N AD. C hest: n ormal shape and expansion. H eart: R SR. L ungs: c lear to auscultation. S kin: right breast with an abscessed cyst near the midline, tender and erythematous. Assessment: * Assessment: 1. B reast abscess - N61.1 (Primary) Plan: * Treatment: Notes: Apply moist heat.?? * Follow Up: p rn * Images: Billing Information: * Visit Code: 92960 Office Visit, Est Pt., Level 3. * Procedure Codes: * Electronic signature of ALEX Greene on 04/04/2025 at 02:24 PM EST Sign off status: Pending * Provider: ALEX Parry Date: 0 05/09/2024 Generated for Francesca pineda/Rudolph/eTransmitting on: 1 06/05/2024 02:24 PM EST History and Physical Notes * HPI (History of Present Illness) Category Sub-Category Detail Notes Category Not es [employer] breast complaints Pt presents to day with c/o possible cyst on the right breast next to the breast bone. Pt sts that there has been a pea sized knot there for a while but sts that within the last week it has got larger in size Examination Category Sub-Category Detail Notes Category Not es General Examination Heart: RSR Lungs: clear to auscultatio n General Appearance: NAD Skin: right breast with an abscessed cyst near the midline, tender and erythematous Chest: normal shape and exp ansion
--- OUTSIDE RECORDS SUMMARY | 2024-06-27 06:30 | XMS_ITS ---
[facility] Address [address] [place] [id number] Care Team Providers Care Evaporative Cooler Installer Name Role Phone Gina Steen Primary Care Provider Kathi Rivero [phone] Allergies Allergen (clinical drug ingredient) Drug/Non Drug Allergy documented on EMR Reaction Allergy Type Onset Date Status Substance with penicillin structure and antibacterial mechanism of action (substance) Penicillins Unknown Drug Allergy Active Results Component Value Reference Range Notes venous doppler ultrasound le g, lower right Reviewed date:06/28/2024 01:25:51 PM Interpretation: Performing Lab: Notes/Report: REASON FOR VISIT bruising on right leg following procedure Medications Medication SIG (Take, Route, Frequency, Duration) Notes Start Date End Date Status Flovent Diskus 100 MCG/ACT 1 puff Inhalation Twice a day; Duration: 30 days Active Lisinopril 20 MG 1 tab(s) orally once a day; Duration: 90 Active Triamterene-HCTZ 37.5-25 MG 1 tab(s) orally once a day; Duration: 90 days Active Sertraline HCl 50 MG Take [facility] tablet by [facility] once daily; Duration: 90 Active Ventolin HFA 108 (90 Base) MCG/ACT 1-2 puff(s) inhaled qid, prn 03/13/2021 Active Metoprolol Succinate ER 50 MG Take 1 tablet by mouth twice daily; Duration: 90 Active Colestipol HCl 1 GM 1 tab Orally Once a day Active Rosuvastatin Calcium 10 MG 1 tablet Orally Once a day Not-Taking Zepbound 2.5 MG/0.5ML 0.5 mL Subcutaneou s; Duration: 30 day(s) Not-Taking Vital Signs Blood pressure systolic 150 mm Hg 06/28/19 25 Blood pressure diastolic 86 mm Hg 025 Heart Rate 60 /min 06/27/2024 Height 67.50 in 06/27/2024 Weight 235.8 lbs 06/27/2024 BMI 36.38 kg/m2 06/27/2024 Encounters Encounter Location Date Provider Diagnosis [facility] [address] [place] [id number] 06/27/2024 Kathi Rivero Swelling of right lo wer extremity M79.89 Assessments Encounter Date Diagnosis (ICD Code) Assessment Notes Treatment Notes Treatment Clinical Notes Section Notes 06/27/2024 Swelling of right lower extremity (ICD-10 - M79.89) Plan Of Treatment Next Appt Details Follow Up: via phone to repo rt test results, Reason: Progress Notes * Saira BALLESTEROSDOB: 7 (49 yo F)Acc No.[id number]:06/27/2024 Progress Notes Patient: Saira DAVIS Provider: ALEX Parry :1975 A ge:48 Y S ex:Female Date:06/27/2024 Address:[address], [id number] Pcp:Gina Seten Subjective: * Chief Complaints: * 1 . Bruising on right leg following procedure. * HPI: L eg: The pt is here today with c/o bruising and warmth of the right calf. Pt states she had a cyst removed from the right breast on 06/22/24. Pt noticed the bruising on Tuesday in her right lower leg. * ROS: D ERMATOLOGY: no R tasha. n o H elena. G ASTROENTEROLOGY: no N ausea. n o V omiting. n o D iarrhea.? U ROLOGY: no D ifficulty urinating. n o B lood in urine. * Medical History: C cecelia's, dysrrhythmia-treated with Beta blockers, Normal echocardiogram 07/21, Environmental allergies-takes allergy shots. * Surgical History: Meryl dockery , Hysterectomy 04/03/2024. * Hospitalization/Major Diagno stic Procedure: H ER-back pain 03/22/16, [facility] ER-back pain 03.25.16, [facility] Viral Menigitis 03/26-03/30/16. * Family History: F [...] tab Orally Once a day , Taking Ventolin [...] tab(s) orally once a day , Taking Sertraline HCl 50 MG Tablet Take 1 tablet by mouth once daily , Not-Taking Zepbound 2.5 MG/0.5ML Solution Auto-injector 0.5 mL Subcutaneous , Not-Taking Rosuvastatin Calcium 10 MG Tablet 1 tablet Orally Once a day , Discontinued Clindamycin HCl 300 MG Capsule 1 capsule Orally every 12 hrs , Medication List reviewed and reconciled with the patient * Allergies: P enicillins. Objective: * Vitals: W t:235.8, Temp:98.4, BP:150/86, HR:60, Nurse:SHAYNA, Ht: 67.50, Repeat BP:148/80, BMI:36.38. * Examination: G eneral Examination: General Appearance: N AD. C hest: n ormal shape and expansion. H eart: R SR. L ungs: c lear to auscultation. E xtremities: right lower extremity with edema and mild erythema, not hot to the touch. Assessment: * Assessment: 1. S welling of right lower extremity - M79.89 (Primary) Plan: * Treatment: * Procedure Codes: 3 077F SYST BP = 140 MM HG6 IT, 3079F DIAST BP 80-89 MM HG * Follow Up: v ia phone to report test results * Images: Billing Information: * Visit Code: 90245 Office Visit, Est Pt., Level 3. * Procedure Codes: 3077F SYST BP = 140 MM HG6 IT. 3079F DIAST BP 80-89 MM HG. * Electronic signature of ALEX Greene on 04/04/2025 at 02:23 PM EST Sign off status: Pending * Provider: ALEX Parry Date: 0 06/27/2024 Generated for Francesca pineda/Rudolph/eTransmitting on: 1 06/05/2024 02:23 PM EST History and Physical Notes * Examination Category Sub-Category Detail Notes Category Not es General Examination Heart: RSR Lungs: clear to auscultatio n Extremities: right lower extremit y with edema and mild erythema, not hot to the touch General Appearance: NAD Chest: normal shape and exp ansion
--- OUTSIDE RECORDS SUMMARY | 2024-06-29 09:00 | XMS_ITS ---
[facility] Address [address] [place] [id number] Care Team Providers Care Maintenance Technician 3Rd Shift Name Role Phone Gina Steen Primary Care Provider [phone] Kathi Rivero [phone] Allergies Allergen (clinical drug ingredient) Drug/Non Drug Allergy documented on EMR Reaction Allergy Type Onset Date Status Substance with penicillin structure and antibacterial mechanism of action (substance) Penicillins Unknown Drug Allergy Active Results Component Value Reference Range Notes Influenza Screen (in house) Reviewed date:06/29/2024 04:20:58 PM Interpretation:neg Performing Lab: Notes/Report: neg results neg CBC Fingerstick (in house) Reviewed date:06/29/2024 04:21:08 PM Interpretation: Performing Lab: Notes/Report: wbc 7.4 3.5 - 10 lym 9.6 15 - 50 mid 2.9 2 - 15 gran 87.5 35 - 80 rbc 4.44 3.5 - 5.5 hgb 13.3 11.5 - 16.5 hct 38.9 35 - 55 mcv 87.7 75 - 100 mch 29.9 25 - 35 mchc 34.1 31 - 38 plat 289 100 - 400 H-Covid, Flu A, Flu B PCR Reviewed date:06/29/2024 04:19:45 PM Interpretation: Performing Lab: Notes/Report: No Is this the 1st COVID test for the patient? No Does the patient have COVID symptoms? Yes Is the patient employed in healthcare? No Is patient an [facility] employee? N Is patient currently hospitalized? No Is patient currently in ICU? No Date of Symptom onset Is patient a resident in a congregate care setting? No COVPCR Not Detected NotDetected Effective 12/09/20, Positive covid results will no longer be called to the ordering physician. Infection control and the physician?s office will continue to report positive covid results to the local Health Department as required. This assay is for in vitro diagnostic use under FDA Emergency Use Authorization only. Negative results do not preclude infection with SARS CoV 2 virus and should not be the sole basis of a patient treatment/management or public health decision. Follow up testing should be performed according to the current CDC recommendations. FLUAPCR Detected NotDetected FLUBPCR Not Detected NotDetected Covid test (in house) Reviewed date:06/29/2024 04:20:49 PM Interpretation:neg Performing Lab: Notes/Report: neg Result: neg REASON FOR VISIT fever, body aches, wheezing Medications Medication SIG (Take, Route, Frequency, Duration) Notes Start Date End Date Status Triamterene-HCTZ 37.5-25 MG 1 tab(s) orally once a day; Duration: 90 days Active Lisinopril 20 MG 1 tab(s) orally once a day; Duration: 90 Active Flovent Diskus 100 MCG/ACT 1 puff Inhala tion Twice a day; Duration: 30 days Active Promethazine-DM 6.25-15 MG/5ML 5 ml as needed Orally every 6 hrs, prn 06/29/2024 Active Medrol 4 MG as directed orally d aily; Duration: 6 days 06/29/2024 Active Sertraline HCl 50 MG Take 1 tablet by [facility] once daily; Duration: 90 Active Metoprolol Succinate ER 50 MG Take 1 tablet by mouth twice daily; Duration: 90 Active Ventolin HFA 108 (90 Base) MCG/ACT 1-2 puff(s) inhaled qid, prn 03/13/2021 Active Tamiflu 75 MG 1 capsule Orally Twi ce a day; Duration: 5 day(s) 06/29/2024 Active Colestipol HCl 1 GM 1 tab Orally Once a day Active Vital Signs Blood pressure systolic 128 mm Hg 06/30/19 25 Blood pressure diastolic 78 mm Hg 025 Heart Rate 97 /min 06/29/2024 Height 67.50 in 06/29/2024 Weight 231.2 lbs 06/29/2024 BMI 35.67 kg/m2 06/29/2024 Encounters Encounter Location Date Provider Diagnosis [facility] [address] [place] [phone] 06/29/2024 Kathi Rivero Acute URI J06.9 ; Bronchitis J40 and Influenza A J10.1 Assessments Encounter Date Diagnosis (ICD Code) Assessment Notes Treatment Notes Treatment Clinical Notes Section Notes 06/29/2024 Acute URI (ICD-10 - J06.9) 06/29/2024 Bronchitis (ICD-10 - J40) Has nebs at home she is using. Will start on steroids and cough medications. Will check for flu at [facility] with a PCR test. 06/29/2024 Influenza A (ICD-10 - J10.1) Rest, fluids, tylenol or motrin for fevers. Home until fever free for 24-48 hours without the use of medication. Plan Of Treatment Medication Medication Name Sig Start Date Stop Date Notes Promethazine-DM 6.25-15 MG/5ML 5 ml as n eeded Orally every 6 hrs, prn 06/29/2024 Medrol 4 MG as directed orally d aily; Duration: 6 days 06/29/2024 Tamiflu 75 MG 1 capsule Orally Twi ce a day; Duration: 5 day(s) 06/29/2024 Treatment Notes Assessment Notes Bronchitis Has nebs at home she is using. Will start on steroids and cough medications. Will check for flu at [facility] with a PCR test. Influenza A Rest, fluids, tyleno l or motrin for fevers. Home until fever free for 24-48 hours without the use of medication. Next Appt Details Follow Up: via phone to repo rt test results, Reason: Progress Notes * Saira BALLESTEROSDOB: 7 (49 yo F)Acc No.[id number]:06/29/2024 Progress Notes Patient: Saira DAVIS Provider: ALEX Parry :1975 A ge:48 Y S ex:Female Date:06/29/2024 Address:[facility] [address], [id number] Pcp:Gina Steen Subjective: * Chief Complaints: * 1 . Fever, body aches, wheezing. * HPI: E NT/respiratory: 48 year old female presents with c/o cough. c/o Fever.? c/o headache. c/o body aches. Pt sts her symptotms started 2 days ago. Pt sts her fever started last night. * ROS: D ERMATOLOGY: no R tasha. n o H elena. G ASTROENTEROLOGY: no N ausea. n o V omiting. n o D iarrhea.? U ROLOGY: no D ifficulty urinating. n o B lood in urine. * Medical History: C rohn's, dysrrhythmia-treated with Beta blockers, Normal echocardiogram 07/21, Environmental allergies-takes allergy shots. * Surgical History: G allbertin , Hysterectomy 04/03/2024. * Hospitalization/Major Diagno stic Procedure: H ER-back pain 03/22/16, [facility] ER-back pain 03.25.16, [facility] Viral Menigitis 03/26-03/30/16. * Family History: F [...] 1 tablet by mouth once daily , Medication List reviewed and reconciled with the patient * Allergies: P enicillins. Objective: * Vitals: W t:231.2, Temp:99.3, BP:128/78, HR:97, O2 Sat:98% on RA, Nurse:niya, Ht: 67.50, BMI:35.67. * Examination: E NT/Respiratory: General Appearance: Does not appear to feel well. E ars: a uditory canals normal bilaterally, TM's WNL. N ose : turbinates red, congested.?Sinuses : tender maxillary sinuses bilaterally. O ral cavity : erythema without exudate on pharynx. N tiara : n o cervical lymphadenopathy. H eart : R RR, normal S1 S2, no murmurs. L ungs: expiratory wheezes, no rales. Assessment: * Assessment: 1. A cute URI - J06.9 (Primary) 2 . B ronchitis - J40 3 .?Influenza A - J10.1 Plan: * Treatment: Value Reference Range C OVPCR Not Detected NotDetected - * F LUAPCR Detected Aa NotDetected - * F LUBPCR Not Detected NotDetected - * Kathi Rivero 06/29/2024 4: 19:38 PM > see OV ?LAB: Influenza Screen (in house) (Collection Date & Time - 06/29/2024)?neg * Value Reference Range r esults neg * EfrainRandi 06/29/2024 2:18: 37 PM > Provider reviewed results while patient in office.Kathi Rivero 06/29/2024 4:20:56 PM > ?LAB: CBC Fingerstick (in house) (Collection Date & Time - 06/29/2024)* Value Reference Range w bc 7.4 3.5 - 10 * l ym 9.6 15 - 50 * m id 2.9 2 - 15 * g ran 87.5 35 - 80 * r bc 4.44 3.5 - 5.5 * h gb 13.3 11.5 - 16.5 * h ct 38.9 35 - 55 * m cv 87.7 75 - 100 * m ch 29.9 25 - 35 * m chc 34.1 31 - 38 * p lat 289 100 - 400 * Randi Zuniga 06/29/2024 2:20: 46 PM > Provider reviewed results while patient in office.Kathi Rivero 06/29/2024 4:21:06 PM > ?LAB: Covid test (in house) (Collection Date & Time - 06/29/2024)?neg* Value Reference Range R esult: neg * Randi Zuniga 06/29/2024 2:18: 56 PM > Provider reviewed results while patient in office.Kathi Rivero 06/29/2024 4:20:41 PM > 2.?Bronchitis? Start Medrol Tablet Therapy Pack, 4 MG, as directed, orally, daily, 6 days, 1, Refills 0.? Notes: Has nebs at home she is using. Will start on steroids and cough medications. Will check for flu at [facility] with a PCR test.??3.?Influenza A? Start Tamiflu Capsule, 75 MG, 1 capsule, Orally, Twice a day, 5 day(s), 10 Capsule, Refills 0.?? Notes: Rest, fluids, tylenol or motrin for fevers. Home until fever free for 24- 48 hours without the use of medication.?? * Procedure Codes: 9 [address] [place], [address] Flu Test- Nasal Swab, Modifiers: QW , 00784 COVID TEST IN HOUSE, Modifiers: QW , 34651 CAPILLARY BLOOD DRAW, 86935 CBC WITH AUTO DIFF, 3074F SYST BP LT 130 MM HG, 3078F DIAST BP < 80 MM HG * Follow Up: v ia phone to report test results * Images: Billing Information: * Visit Code: 64085 Office Visit, Est Pt., Level 3. * Procedure Codes: [address] [place]. [address] Flu Test- Nasal Swab. Modifiers: QW 12675 COVID TEST IN HOUSE. Modifiers: QW 44127 CAPILLARY BLOOD DRAW. 79272 CBC WITH AUTO DIFF. 3074F SYST BP LT 130 MM HG. 3078F DIAST BP < 80 MM HG. * Electronic signature of ALEX Greene on 04/04/2025 at 02:25 PM EST Sign off status: Pending * Provider: ALEX Parry Date: 0 06/29/2024 Generated for Francesca pineda/Rudolph/eTransmitting on: 1 06/05/2024 02:25 PM EST History and Physical Notes * HPI (History of Present Illness) Category Sub-Category Detail Notes Category Not es ENT/respiratory cough Pt sts her s ymptotms started 2 days ago. Pt sts her fever started last night Fever headache body aches Examination Category Sub-Category Detail Notes Category Not es ENT/Respiratory Oral cavity : erythema without exudate on pharynx Sinuses : tender maxillary sin uses bilaterally Ears: auditory canals norm al bilaterally, TM's WNL Neck : no cervical lymphade nopathy Heart : RRR, normal S1 S2, n o murmurs Lungs: expiratory wheezes, no rales General Appearance: Does not appear to f eel well Nose : turbinates red, tomas ested
--- OUTSIDE RECORDS SUMMARY | 2024-09-06 10:30 | XMS_ITS ---
Author Organization [facility] Address [address] [place] [id number] Care Team Providers Care Retort Cooler Name Role Phone Gina Steen Primary Care Provider Kathi Rivero [phone] Allergies Allergen (clinical drug ingredient) Drug/Non Drug Allergy documented on EMR Reaction Allergy Type Onset Date Status Substance with penicillin structure and antibacterial mechanism of action (substance) Penicillins Unknown Drug Allergy Active Results Component Value Reference Range Notes P-Arthritis Panel, [facility] Reviewed date:09/12/2024 03:38:29 PM Interpretation:ESR 30, CRP 0.62 Performing Lab: Notes/Report: Test performed by [facility], [facility] [employer] [address] [place] [address] , [address], [place] [address] MD, Professor Of Musicology CLIA: [id number] Erythrocyte Sedimentation Rate (ESR), Automated 30 <26 mm/hr Rheumatoid Factor 10.0 <14.1 IU/mL C-Reactive Protein (CRP) 0.62 <0.50 mg/dL Antinuclear Antibodies (NEYDA) Screen, Reflex NEYDA 9 Panel Negative Negative This test is performed by Multiplex Bead Immunoassay methodology. Antinuclear Antibodies (NEYDA) Result Note SEE COMMENT For positive Autoantibodies, please refer to the interpretive chart here: [email or web address] CCP Antibodies <0.5 <0.5-3.0 U/mL proBrain Natriuretic Peptide Reviewed date:09/12/2024 03:38:29 PM Interpretation:None Performing Lab: Notes/Report: Test performed by [facility] , [address], [place] [address] MD, Professor Of Musicology CLIA: [id number] proBrain Natriuretic Peptide 36 <300 pg/mL Please note the updated reference range values which are stratified by age. Positive >450 pg/mL Indeterminate 300-450 pg/mL Negative <300 pg/mL Ankle-brachial index Reviewed date:09/12/2024 03:38:29 PM Interpretation:Negative Performing Lab: Notes/Report: Negative REASON FOR VISIT legs hurting, ankle swelling Medications Medication SIG (Take, Route, Frequency, Duration) Notes Start Date End Date Status Colestipol HCl 1 GM 1 tab Orally Once a day Active Ventolin HFA 108 (90 Base) MCG/ACT 1-2 puff(s) inhaled qid, prn 03/13/2021 Active Flovent Diskus 100 MCG/ACT 1 puff Inhalation Twice a day; Duration: 30 days Active Metoprolol Succinate ER 50 MG Take 1 tablet by mouth twice daily; Duration: 90 Active Triamterene-HCTZ 37.5-25 MG Take 1 tablet by mouth once daily; Duration: 90 Active Lisinopril 20 MG 1 tab(s) orally once a day; Duration: 90 Active Sertraline HCl 50 MG Take 1 tablet by [facility] once daily; Duration: 30 days Due for appt Active Vital Signs Blood pressure systolic 140 mm Hg 09/07/19 25 Blood pressure diastolic 90 mm Hg 025 Heart Rate 81 /min 09/06/2024 Height 67.50 in 09/06/2024 Weight 225.2 lbs 09/06/2024 BMI 34.75 kg/m2 09/06/2024 Encounters Encounter Location Date Provider Diagnosis [facility] [address] [place] [id number] 09/06/2024 Kathi Rivero Right leg swelling M79.89 and Right leg pain M79.604 Assessments Encounter Date Diagnosis (ICD Code) Assessment Notes Treatment Notes Treatment Clinical Notes Section Notes 09/06/2024 Right leg swelling (ICD-10 - M79.89) 09/06/2024 Right leg pain (ICD-10 - M79.604) Plan Of Treatment Pending Test Test Name Order Date P-BNP (Brain Natriuretic Peptide) 2024 Next Appt Details Follow Up: via phone to repo rt test results, Reason: Progress Notes * Saira BALLESTEROSDOB: 7 (49 yo F)Acc No.[id number]:09/06/2024 Progress Notes Patient: Saira DAVIS Provider: ALEX Parry :1975 A ge:49 Y S ex:Female Date:09/06/2024 Address:[address], [id number] Pcp:Gina Steen Subjective: * Chief Complaints: * 1 . Legs hurting, ankle swelling. * HPI: L e49 year old female presents with c/o Leg pain T he pt is here today with continued pain and swelling in the right lower leg. Pt states she is now having swelling in her right ankle. * ROS: D ERMATOLOGY: no R tasha. n o H elena. G ASTROENTEROLOGY: no N ausea. n o V omiting. n o D iarrhea.? U ROLOGY: no D ifficulty urinating. n o B lood in urine. * Medical History: C rohn's, dysrrhythmia-treated with Beta blockers, Normal echocardiogram 07/21, Environmental allergies-takes allergy shots. * Surgical History: G allbadder , Hysterectomy 04/03/2024. * Hospitalization/Major Diagno stic Procedure: H ER-back pain 03/22/16, [facility] ER-back pain 12.8.16, [facility] Viral Menigitis 03/26-03/30/16. * Family History: F [...] day , Taking Triamterene-HCTZ 37.5-25 MG Tablet Take 1 tablet by mouth once daily , Taking Sertraline HCl 50 MG Tablet Take 1 tablet by mouth once daily , Notes to Pharmacist: Due for appt, Discontinued Medrol 4 MG Tablet Therapy Pack as directed orally daily , Discontinued Promethazine-DM 6.25-15 MG/5ML Syrup 5 ml as needed Orally every 6 hrs, prn , Discontinued Tamiflu 75 MG Capsule 1 capsule Orally Twice a day , Medication List reviewed and reconciled with the patient * Allergies: P enicillins. Objective: * Vitals: W t: 225.2, Temp: 98.0, BP: 140/90, HR: 81, Nurse: SHAYNA, Ht: 67.50, BMI:34.75. * Examination: G eneral Examination: General Appearance: N AD. C hest: n ormal shape and expansion. H eart: R SR. L ungs: c lear to auscultation. E xtremities: right lower extremity with 1+ edema, no erythema, some tenderness in the lateral ankle. ? Assessment: * Assessment: 1. R ight leg swelling - M79.89 (Primary) 2 . R ight leg pain - M79.604? Plan: * Treatment: ?LAB: P-Arthritis Panel, [facility] (Collection Date & Time - 09/06/2024 02:54 PM)?ESR 30, CRP 0.62* Value Reference Range A ntinuclear Antibodies (NEYDA) Result Note SEE COMMENT - * A ntinuclear Antibodies (NEYDA) Screen, Reflex NEYDA 9 Panel Negative Negative - * C CP Antibodies <0.5 <0.5-3.0 - U/mL * C -Reactive Protein (CRP) 0.62 H <0.50 - mg/dL * E rythrocyte Sedimentation Rate (ESR), Automated 30 H <26 - mm/hr * R heumatoid Factor 10.0 <14.1 - IU/mL * Kathi Rivero 09/06/2024 0 3:53:46 PM >room 6 Taryn Vickers 09/12/2024 03:38:19 PM > See phone encounter 2.?Right leg pain?Imaging: Ankle-brachial index (Performed Date - 09/11/2024)?Negative* AnetaOly 09/06/2024 04:0 4:01 PM > auth#[id number]; valid 09/06/2024 through 10/05/2024; CPT code 97778; faxed to [facility] Scheduling Taryn Vickers 09/12/2024 03:38:19 PM > See phone encounter * Labs: * L ab: proBrain Natriuretic Peptide (Collection Date & Time - 09/06/2024 02:54 PM) N one Value Reference Range p roBrain Natriuretic Peptide 36 <300 - pg/mL * [facility], support 09/07/2024 01:30:08 : This order was created by the Interface. Taryn Vickers 09/12/2024 03:38:19 PM > See phone encounter * Follow Up: v ia phone to report test results * Images: Billing Information: * Visit Code: 36298 Office Visit, Est Pt., Level 3. * Procedure Codes: * Electronic signature of ALEX Greene on 04/04/2025 at 02:23 PM EST Sign off status: Pending * Provider: ALEX Parry Date: 0 09/06/2024 Generated for Francesca pineda/Rudolph/eTransmitting on: 1 06/05/2024 02:23 PM EST History and Physical Notes * HPI (History of Present Illness) Category Sub-Category Detail Notes Category Not es Leg Leg pain The pt is here t jordan with continued pain and swelling in the right lower leg. Pt states she is now having swelling in her right ankle Examination Category Sub-Category Detail Notes Category Not es General Examination Heart: RSR Lungs: clear to auscultatio n Extremities: right lower extremit y with 1+ edema, no erythema, some tenderness in the lateral ankle General Appearance: NAD Chest: normal shape and exp ansion
--- OUTSIDE RECORDS SUMMARY | 2024-09-25 06:00 | XMS_ITS ---
Author Organization [facility] Address [address] [place] [id number] Care Team Providers Care Sales Training Representative Name Role Phone Gina Steen Primary Care Provider Allergies Allergen (clinical drug ingredient) Drug/Non Drug Allergy documented on EMR Reaction Allergy Type Onset Date Status Substance with penicillin structure and antibacterial mechanism of action (substance) Penicillins Unknown Drug Allergy Active Results Component Value Reference Range Notes CBC Venipuncture (in house) Reviewed date:09/27/2024 08:35:21 AM Interpretation:Normal Performing Lab: Notes/Report: Normal wbc 8.6 3.5 - 10 lymph 32.1 15 - 50 mid 6.0 2 - 15 gran 61.9 35 - 80 rbc 5.14 3.5 - 5.5 hgb 14.6 11.5 - 16.5 hct 44.9 35 - 55 mcv 87.4 75 - 100 mch 28.5 25 - 35 mchc 32.6 31 - 38 platlet 364 100 - 400 P-Comprehensive Metabolic Pa hannah (CMP) Reviewed date:09/27/2024 08:35:21 AM Interpretation: Performing Lab: Notes/Report: Test performed by [email or web address] [address] [place] [address] , [address], [place] [address] MD, Golf Cart Mechanic CLIA: [id number] Sodium 138 135-145 mmol/L Potassium 4.6 3.5-5.3 mmol/L Chloride 101 97-108 mmol/L CO2 26 22-32 mmol/L Glucose 84 65-99 mg/dL BUN 18 6-20 mg/dL Creatinine 0.79 0.50-1.00 mg/dL Calcium 10.6 8.6-10.4 mg/dL eGFR by Creatinine 92 >59 mL/min/1.73m2 Protein 7.8 6.0-8.3 g/dL Albumin 4.5 3.5-5.3 g/dL Alkaline Phosphatase 78 35-121 IU/L ALT (SGPT) 42 <5-47 IU/L AST (SGOT) 25 <5-40 IU/L Bilirubin, Total 0.3 <0.2-1.2 mg/dL A/G Ratio 1.4 1.1-2.5 P-Lipid Panel Reviewed date:09/27/2024 08:35:21 AM Interpretation:TC 261; LDL 185 Performing Lab: Notes/Report: Test performed by [facility] [address] [place] [address] , [address] , [place] [address] MD, Golf Cart Mechanic CLIA: [id number] Cholesterol 261 <200 mg/dL Triglycerides 150 <150 mg/dL HDL Cholesterol 46 >39 mg/dL Cholesterol / HDL Ratio 5.67 0.00-4.44 Ratio Non-HDL Cholesterol 215 <130 mg/dL LDL Cholesterol (Calculation) 185 <130 mg/dL LDL Cholesterol Levels* Less than 100 mg/dL Optimal 100 to 129 mg/dL Near Optimal/ Above Optimal 130 to 159 mg/dL Borderline High 160 to 189 mg/dL High 190 mg/dL and above Very High * Categories as recommended by the 2004 ATPIII guidelines LDL/HDL Ratio 4.0 <3.3 Ratio LDL Cholesterol Patient History Test Date: 09/25/2024 LDL Results: 185 Units: mg/dL % Change: - REASON FOR VISIT checkup with labs, Needs colon cancer screening Medications Medication SIG (Take, Route, Frequency, Duration) Notes Start Date End Date Status Zepbound 7.5 MG/0.5ML 0.5 mL Subcutaneous Active Colestipol HCl 1 GM 1 tab Orally Once a day Active Flovent Diskus 100 MCG/ACT 1 puff Inhalation Twice a day; Duration: 30 days Active Ventolin HFA 108 (90 Base) MCG/ACT 1-2 puff(s) inhaled qid, prn 03/13/2021 Active Metoprolol Succinate ER 50 MG Take 1 tablet by mouth twice daily Active Lisinopril 20 MG 1 tab(s) orally once a day Active Triamterene-HCTZ 37.5-25 MG Take 1 tablet by mouth once daily Active Sertraline HCl 50 MG Take [address] [facility] once daily Due for appt Active Problems Problem Type SNOMED Code ICD Code Onset Dates Problem Status W/U Status Risk Notes Problem Dyslipidemia ([id number]) Dyslipidemia (E78.5) Active confirmed Vital Signs Blood pressure systolic 130 mm Hg 09/26/19 25 Blood pressure diastolic 70 mm Hg 025 Heart Rate 98 /min 09/25/2024 Height 67.50 in 09/25/2024 Weight 225.8 lbs 09/25/2024 BMI 34.84 kg/m2 09/25/2024 Encounters Encounter Location Date Provider Diagnosis [facility] [address] [facility] [address] [place], [place] [id number] 09/25/2024 Gina Steen Essential hypertensi on I10 ; Dyslipidemia E78.5 ; Depression with anxiety F41.8 and Cardiac dysrhythmia I49.9 Assessments Encounter Date Diagnosis (ICD Code) Assessment Notes Treatment Notes Treatment Clinical Notes Section Notes 09/25/2024 Essential hypertension (ICD-10 - I10) 09/25/2024 Dyslipidemia (ICD-10 - E78.5) 09/25/2024 Depression with anxiety (ICD-10 - F41.8) 09/25/2024 Cardiac dysrhythmia (ICD-10 - I49.9) Plan Of Treatment Medication Medication Name Sig Start Date Stop Date Notes Metoprolol Succinate ER 50 MG Take 1 tablet by mouth twice daily Lisinopril 20 MG 1 tab(s) orally once a day Triamterene-HCTZ 37.5-25 MG Take 1 table t by mouth once daily Sertraline HCl 50 MG Take 1 tablet by mo uth once daily Due for appt Next Appt Details Follow Up: 6 Months, Reason: Progress Notes * Saira BALLESTEROSDOB: 7 (49 yo F)Acc No.[id number]:09/25/2024 Progress Notes Patient: Saira DAVIS Provider: Gina Steen M.D. :1975 A ge:49 Y S ex:Female Date:09/25/2024 Address:[address], [id number] Subjective: * Chief Complaints: * 1 . Checkup with labs. 2. Needs colon cancer screening. * HPI: H PI: 49 year old female presents with c/o Patient is here today for?Pt is here today for a check up with fasting labs. C ardiology: Blood pressure checks at home are consistently normal. R heumatology: She is scheduled to see rheumatology at the end of the month due to her leg pain. G YN History: She follows with [facility] in [place] and is current on her mammogram. * ROS: D ERMATOLOGY: no R tasha. [...] Diagno stic Procedure: H ER-back pain 03/22/16, [facility] ER-back pain 03.25.16, [facility] Viral Menigitis 03/26-03/30/16. * Family History: [...] US: no. * Medications: T aking Zepbound 7.5 MG/0.5ML Solution Auto-injector 0.5 mL Subcutaneous , [...] , Notes to Pharmacist: Due for appt, Medication List reviewed and reconciled with the patient * Allergies: P enicillins. Objective: * Vitals: W t: 225.8, Temp: 98.4, BP: 130/70, HR: 98, Nurse: niya, Ht: 67.50, BMI:34.84. * Examination: C ardiology: General Appearance: p leasant, NAD. H EENT: u nremarkable. C arotid upstroke: n ormal, no bruits. H eart sounds: R RR, normal S1, S2.?Murmur, click , gallop: n one. L ungs: c lear, no rales or wheezes. A bdomen: positive BS, soft, nontender. E xtremities: n o leg edema. Assessment: * Assessment: 1. E ssential hypertension - I10 (Primary) 2 . D yslipidemia - E78.5 ? 3 . D epression with anxiety - F41.8 4 . C ardiac dysrhythmia - I49.9 Plan: * Treatment: Value Reference Range A /G Ratio 1.4 1.1-2.5 - * A lbumin 4.5 3.5-5.3 - g/dL * A lkaline Phosphatase 78 35-121 - IU/L * A LT (SGPT) 42 <5-47 - IU/L * A ST (SGOT) 25 <5-40 - IU/L * B ilirubin, Total 0.3 <0.2-1.2 - mg/dL * B UN 18 6-20 - mg/dL * C alcium 10.6 H 8.6-10.4 - mg/dL * C hloride 101 97-108 - mmol/L * C O2 26 22-32 - mmol/L * C reatinine 0.79 0.50-1.00 - mg/dL * G lucose 84 65-99 - mg/dL * P otassium 4.6 3.5-5.3 - mmol/L * S odium 138 135-145 - mmol/L * P rotein 7.8 6.0-8.3 - g/dL * e GFR by Creatinine 92 >59 - mL/min/1.73m2 * Gina Steen 09/27/2024 08:35:00 AM EDT > See phone encounter ?LAB: CBC Venipuncture (in house) (Collection Date & Time - 09/25/2024)? Normal* Value Reference Range w bc 8.6 3.5 - 10 * l ymph 32.1 15 - 50 * m id 6.0 2 - 15 * g ran 61.9 35 - 80 * r bc 5.14 3.5 - 5.5 * h gb 14.6 11.5 - 16.5 * h ct 44.9 35 - 55 * m cv 87.4 75 - 100 * m ch 28.5 25 - 35 * m chc 32.6 31 - 38 * p cindy 364 100 - 400 * Randi Zuniga 09/25/2024 12:5 6:04 PM EDT > Gina Steen 09/27/2024 08:35:00 AM EDT > See phone encounter 2.?Dyslipidemia?LAB: P-Lipid Panel (Collection Date & Time - 09/25/2024 10:47 AM)?TC 261; LDL 185* Value Reference Range C holesterol / HDL Ratio 5.67 H 0.00-4.44 - Ratio * C holesterol 261 H <200 - mg/dL * H DL Cholesterol 46 >39 - mg/dL * L DL Cholesterol (Calculation) 185 H <130 - mg/d L * L DL/HDL Ratio 4.0 H <3.3 - Ratio * N on-HDL Cholesterol 215 H <130 - mg/dL * T riglycerides 150 H <150 - mg/dL * Gnia Steen 09/27/2024 08:35:00 AM EDT > See phone encounter 3.?Depression with anxiety? Continue Sertraline HCl Tablet, 50 MG, Take 1 tablet by mouth once daily, Notes to Pharmacist: Due for appt.??4.?Cardiac dysrhythmia? Continue Metoprolol Succinate ER Tablet Extended Release 24 Hour, 50 MG, Take 1 tablet by mouth twice daily.?? * Procedure Codes: 8 5025 CBC WITH AUTO DIFF, 12948 VENIPUNCT, ROUTINE*, 1036F TOBACCO NON-USER, G8950 PREHTN/HTN BP DOC INDCD F/U DOC, G8752 MOST RECENT SYSTOLIC BP < 140MM HG, G8754 MOST RECENT DIASTOLIC BP < 90MM HG * Follow Up: 6 Months * Images: Billing Information: * Visit Code: 16547 Office Visit, Est Pt., Level 4. * Procedure Codes: 90362 CBC WITH AUTO DIFF. 85452 VENIPUNCT, ROUTINE*. 1036F TOBACCO NON-USER. G8950 PREHTN/HTN BP DOC INDCD F/U DOC. G8752 MOST RECENT SYSTOLIC BP < 140MM HG. G8754 MOST RECENT DIASTOLIC BP < 90MM HG. * Electronic signature of Gina Steen MD on 04/04/2025 at 02:24 PM EST Sign off status: Pending * Provider: Gina Steen M.D. Date: 0 09/25/2024 Generated for Francesca pineda/Rudolph/Yueitting on: 1 06/05/2024 02:24 PM EST History and Physical Notes * HPI (History of Present Illness) Category Sub-Category Detail Notes Category Not es Cardiology Blood pressure checks at home are consistently normal [facility] History She follows [facility] in [place] and is current on her mammogram Rheumatology She is schedule d to see rheumatology at the end of the month due to her leg pain HPI Patient is here toda y for Pt is here today for a check up with fasting labs Examination Category Sub-Category Detail Notes Category Not es Cardiology Lungs: clear, no rales or wheezes HEENT: unremarkable Heart sounds: RRR, normal S1, S2 Abdomen: positive BS, soft, n ontender Carotid upstroke: normal, no bruits Extremities: no leg edema Murmur, click , gallop: none General Appearance: pleasant, NAD
--- OUTSIDE RECORDS SUMMARY | 2025-01-03 11:15 | XMS_ITS ---
[facility] Address [address] [place] [id number] Care Team Providers Care Adjustment Supervisor Name Role Phone Gina Steen Primary Care Provider Kathi Rivero Unavailable [phone] Allergies Allergen (clinical drug ingredient) Drug/Non Drug Allergy documented on EMR Reaction Allergy Type Onset Date Status Substance with penicillin structure and antibacterial mechanism of action (substance) Penicillins Unknown Drug Allergy Active Results Component Value Reference Range Notes Influenza Screen (in house) Reviewed date:01/03/2025 04:54:55 PM Interpretation: Performing Lab: Notes/Report: results neg CBC Fingerstick (in house) Reviewed date:01/03/2025 04:54:55 PM Interpretation: Performing Lab: Notes/Report: wbc 19.4 3.5 - 10 lym 20.3% 15 - 50 mid 5.2% 2 - 15 gran 74.5% 35 - 80 rbc 4.94 3.5 - 5.5 hgb 14.5 11.5 - 16.5 hct 42.6 35 - 55 mcv 86.1 75 - 100 mch 29.5 25 - 35 mchc 34.2 31 - 38 plat 383 100 - 400 Covid test (in house) Reviewed date:01/03/2025 04:54:55 PM Interpretation: Performing Lab: Notes/Report: Result: neg REASON FOR VISIT congestion,cough Medications Medication SIG (Take, Route, Frequency, Duration) Notes Start Date End Date Status Colestipol HCl 1 GM 1 tab Orally Once a day Active Sertraline HCl 50 MG Take 1 tablet by [facility] once daily; Duration: 90 Active Triamterene-HCTZ 37.5-25 MG Take 1 tablet by mouth once daily; Duration: 90 Active Rosuvastatin Calcium 10 MG 1/2 tablet Or ally Once a day 09/27/2024 Active Zepbound 7.5 MG/0.5ML 0.5 mL Subcutaneous Active Medrol 4 MG as directed Orally 01/03/2025 Active Zithromax Z-Etienne 250 MG as directed Orally 01/04/20 Active Flovent Diskus 100 MCG/ACT 1 puff Inhala tion Twice a day; Duration: 30 days Active Lisinopril 20 MG 1 tab(s) orally once a day Active Metoprolol Succinate ER 50 MG Take 1 tablet by mouth twice daily Active Promethazine-DM 6.25-15 MG/5ML 5 mL orally every 6 hours prn 01/03/2025 Active Ventolin HFA 108 (90 Base) MCG/ACT 1-2 puff(s) inhaled qid, prn 03/13/2021 Active Vital Signs Blood pressure systolic 132 mm Hg 01/04/20 25 Blood pressure diastolic 78 mm Hg 025 Heart Rate 86 /min 01/03/2025 Height 67.50 in 01/03/2025 Weight 210.4 lbs 01/03/2025 BMI 32.46 kg/m2 01/03/2025 Encounters Encounter Location Date Provider Diagnosis [facility] [address] [id number] 01/03/2025 Kathi Rivero Acute URI J06.9 and Bronchitis J40 Assessments Encounter Date Diagnosis (ICD Code) Assessment Notes Treatment Notes Treatment Clinical Notes Section Notes 01/03/2025 Acute URI (ICD-10 - J06.9) 01/03/2025 Bronchitis (ICD-10 - J40) Plan Of Treatment Medication Medication Name Sig Start Date Stop Date Notes Medrol 4 MG as directed Orally 01/03/2025 Zithromax Z-Etienne 250 MG as directed Orally 01/03/2025 Flovent Diskus 100 MCG/ACT 1 puff Inhala tion Twice a day; Duration: 30 days Promethazine-DM 6.25-15 MG/5ML 5 mL orally every 6 hours prn 01/03/2025 Ventolin HFA 108 (90 Base) MCG/ACT 1-2 puff(s) inhaled qid, prn 03/13/2021 Next Appt Details Follow Up: prn, Reason: Progress Notes * Saira BALLESTEROSDOB: 7 (49 yo F)Acc No.[id number]:01/03/2025 Progress Notes Patient: Saira DAVIS Provider: ALEX Parry :1975 A ge:49 Y S ex:Female Date:01/03/2025 Address:[facility] [place], [id number] Pcp:Gina Steen Subjective: * Chief Complaints: * 1 . Congestion,cough. * HPI: E NT/respiratory: Pt states the nasal congestion stared last week but the other symptoms stared today and getting worse. 49 year old female presents with c/o sore throat s wallowing painful, feels scratchy. c/o cough g reenish yellow sputum production. c/o nasal congestion s neezing, all the time, green drainage, yellow drainage. c/o Short of Breath. c/o headache. c/o body aches. Denies : Fever. D enies : ear pain. D enies : Chest Pain. D enies : chest congestion. D enies : dizziness. * ROS: D ERMATOLOGY: no R tasha. n o H elena. G ASTROENTEROLOGY: no N ausea. n o V omiting. n o D iarrhea.? U ROLOGY: no B lood in urine. n o F requent urination. ? * Medical History: C rohn's, dysrrhythmia-treated with Beta blockers, Normal echocardiogram 07/21, Environmental allergies-takes allergy shots. * Surgical History: Meryl allbadraeann , Hysterectomy 04/03/2024. * Hospitalization/Major Diagno stic Procedure: H ER-back pain 03/22/16, [facility] ER-back pain 12.8.16, [facility] Viral Menigitis 03/26-03/30/16. * Family History: [...] ouside US: no. * Medications: T aking Metoprolol Succinate ER 50 MG Tablet Extended Release 24 Hour Take 1 tablet by mouth twice daily , Taking Lisinopril 20 MG Tablet 1 tab(s) orally once a day , Taking Rosuvastatin Calcium 10 MG Tablet 1/2 tablet Orally Once a day , Taking Zepbound 7.5 MG/0.5ML Solution Auto-injector 0.5 mL Subcutaneous , Taking Colestipol HCl 1 GM Tablet 1 tab Orally Once a day , Taking Ventolin HFA 108 (90 Base) MCG/ACT Aerosol Solution 1-2 puff(s) inhaled qid, prn , Taking Flovent Diskus 100 MCG/ACT Aerosol Powder Breath Activated 1 puff Inhalation Twice a day , Taking Triamterene-HCTZ 37.5-25 MG Tablet Take 1 tablet by mouth once daily , Taking Sertraline HCl 50 MG Tablet Take 1 tablet by mouth once daily , Medication List reviewed and reconciled with the patient * Allergies: P enicillins. Objective: * Vitals: W t: 210.4, Temp: 97.9, BP: 132/78, HR: 86, Nurse: pe, Ht: 67.50, BMI:32.46. * Examination: G eneral Examination: General Appearance: N AD. H EENT: n hailey congestion. O ral cavity: n o lesions, mucosa moist and WNL, no erythema. N tiara: s upple, no lymphadenopathy. C hest: n ormal shape and expansion, coughs with deep breathing. H eart: R SR. L ungs: c lear to auscultation. A bdomen: b owel sounds present, soft.? Assessment: * Assessment: 1. A ky URI - J06.9 (Primary) 2 . B codey - J40 Plan: * Treatment: Value Reference Range r esults neg * Bre Jarrell 01/03/2025 0 4:35:43 PM EDT > Provider reviewed results while patient in office. ?LAB: CBC Fingerstick (in house) (Collection Date & Time - 01/03/2025)* Value Reference Range w bc 19.4 3.5 - 10 * l ym 20.3% 15 - 50 * m id 5.2% 2 - 15 * g ran 74.5% 35 - 80 * r bc 4.94 3.5 - 5.5 * h gb 14.5 11.5 - 16.5 * h ct 42.6 35 - 55 * m cv 86.1 75 - 100 * m ch 29.5 25 - 35 * m chc 34.2 31 - 38 * p lat 383 100 - 400 * Shani Baugh 01/03/2025 04:33: 42 PM EDT > Provider reviewed results while patient in office. ?LAB: Covid test (in house) (Collection Date & Time - 01/03/2025)* Value Reference Range R esult: neg Bre Gaytan 01/03/2025 0 4:35:25 PM EDT > Provider reviewed results while patient in office. 2.?Bronchitis? Refill Ventolin HFA Aerosol Solution, 108 (90 Base) MCG/ACT, 1-2 puff(s), inhaled, qid, prn, 1, Refills 2;?Refill Flovent Diskus Aerosol Powder Breath Activated, 100 MCG/ACT, 1 puff, Inhalation,Twice a day, 30 days, 1, Refills 1;?Start Medrol Tablet Therapy Pack, 4 MG, as directed, Orally, 1, Refills 0;?Start Zithromax Z-Etienne Tablet, 250 MG, as directed, Orally, 1, Refills 0.?& #160; * Procedure Codes: 3 8987 CAPILLARY BLOOD DRAW, 29458 CBC WITH AUTO DIFF, 83328 Flu Test- Nasal Swab, Modifiers: QW , 87625 COVID TEST IN HOUSE, Modifiers: QW , 1036F TOBACCO NON- USER, 3075F SYST BP GE 130 - 139MM HG, 3078F DIAST BP < 80 MM HG * Follow Up: p rn * Images: Billing Information: * Visit Code: 64745 Office Visit, Est Pt., Level 3. * Procedure Codes: 55995 CAPILLARY BLOOD DRAW. 76712 CBC WITH AUTO DIFF. 85469 Flu Test- Nasal Swab. Modifiers: QW 10214 COVID TEST IN HOUSE. Modifiers: QW 1036F TOBACCO NON-USER. 3075F SYST BP GE 130 - 139MM HG. 3078F DIAST BP < 80 MM HG. * Electronic signature of ALEX Greene on 04/04/2025 at 02:25 PM EST Sign off status: Pending * Provider: ALEX Parry Date: 0 01/03/2025 Generated for Francesca pineda/Rudolph/eTransmitting on: 1 06/05/2024 02:25 PM EST History and Physical Notes * HPI (History of Present Illness) Category Sub-Category Detail Notes Category Not es ENT/respiratory sore throat swallowing painful, feels scratchy ear pain Short of Breath Chest Pain cough greenish yellow sput um production Fever headache chest congestion nasal congestion sneezing, all the ti me, green drainage, yellow drainage dizziness body aches Examination Category Sub-Category Detail Notes Category Not es General Examination HEENT: nasal congestion Heart: RSR Lungs: clear to auscultatio n Abdomen: bowel sounds present , soft General Appearance: NAD Neck: supple, no lymphaden opathy Oral cavity: no lesions, mucosa m oist and WNL, no erythema Chest: normal shape and exp ansion, coughs with deep breathing
--- OUTSIDE RECORDS SUMMARY | 2025-03-07 13:00 | XMS_ITS | Encounter Summary ---
Author Organization [facility] Address [address] [place] [address] Care Team Providers Care Telephone Assembler Name Role Phone Abdifatah Miller MD Primary Care Provider [phone] Reason for Visit * Reason Comments Hypertension Encounter Details Date Type Department Care Team (Late st Contact Info) Description 03/07/2025 1:00 PM EST Office Visit [facility] [address] [place] [address] Joanie Ross, ENTERPRISE RESOURCE PLANNER [address] [place] [address] [place] [address] Obesity (BMI 35.0-39.9 without comorbidity) (Primary Dx); Palpitations; Hypertension, essential; Hypercholesterolemia; CHRIST (obstructive sleep apnea) Social History Tobacco Use [...] Sign Reading Time Taken Comments Blood Pressure 116/64 03/07/2025 12:58 PM EST Pulse 77 03/07/2025 12:58 PM EST Temperature - - Respiratory Rate - - Oxygen Saturation 98% 03/07/2025 12:58 PM EST Inhaled Oxygen Concentration - - Weight 95.3 kg (210 lb) 03/07/2025 12:58 PM EST Height 172.7 cm (5' 8 ) 03/07/2025 12:58 PM EST Body Mass Index 31.93 03/07/2025 12:58 PM EST documented in this encounter Progress Notes * Joanie Ross, ENTERPRISE RESOURCE PLANNER - 03/07/2025 1:00 PM EST Images from the original note were not included. [facility] Provider Note Date: 03/07/2025 Name: Saira Jean Baptiste : 1975 PCP: Abdifatah Miller MD Chief Complaint Patient presents with Hypertension Subjective History of Present Illness Saira Jean Baptiste is a 49-year-old female who presents for follow-up on her hypertension and obesity medications. She has been adhering to a weekly regimen of Zepbound 7.5 mg, which has resulted in some weight loss. However, she reports a plateau in her weight over the past 2 months. She is considering an increase in the dosage to 10 mg but expresses apprehension about potential side effects. Her blood pressure has been well- controlled, with readings consistently within the normal range. She has not had her cholesterol levels checked since 03/2024. 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 She also incorporates home exercises, including stretching and using a vibration plate, into her routine. She ensures adequate hydration by consuming approximately 3 liters of water daily. She reports no chest pain or shortness of breath but mentions occasional nighttime tightness, whichshe attributes to work-related anxiety. She rarely experiences palpitations and reports no edema inher lower extremities, dizziness, or syncope. Cardiac history 1. Palpitations -metoprolol prescribed through us 2. Mild mitral regurgitation 3. Obstructive sleep apnea -intolerant to CPAP 4. High cholesterol 5. Obesity 6. Hypertension Echo 08/31/22 Left ventricular ejection fraction appears to be 61 - 65%. Left ventricular wall thickness is consistent with mild to moderate concentric hypertrophy. Left ventricular diastolic functionwas normal. The right ventricular cavity is mildly dilated. Estimated right ventricular systolic pre ssure from tricuspid regurgitation is normal (<35 mmHg). Reports Denies Chest Pain [] [x] Shortness [...] mouth Daily., Disp: 90 tablet, Rfl: 3 hydroxychloroquine (PLAQUENIL) 200 MG tablet, Take 1 tablet by mouth Every 12 (Twelve) Hours., Disp: , Rfl: ibuprofen (ADVIL,MOTRIN) 800 MG tablet, Take 1 tablet by mouth Every 6 (Six) Hours As Needed. for pain, Disp: , Rfl: lisinopril (PRINIVIL,ZESTRIL) 10 MG tablet, Take 1 tablet by mouth twice daily, Disp: 180 tablet, Rfl: 3 metoprolol succinate XL (TOPROL-XL) 50 MG 24 hr tablet, Take 1 tablet by mouth 2 (Two) Times a Day., Disp: 180 tablet, Rfl: 3 Qvar RediHaler 80 MCG/ACT inhaler, Inhale 1 puff 2 (Two) Times a Day., Disp: , Rfl: sertraline (ZOLOFT) 50 MG tablet, Take 1 tablet by mouth Daily., Disp: , Rfl: triamterene-hydrochlorothiazide (MAXZIDE-25) 37.5-25 MG per tablet, Take 1 tablet by mouth Daily., Disp: , Rfl: Tirzepatide-Weight Management (ZEPBOUND) 10 MG/0.5ML solution auto-injector, Inject 0.5 mL under the skin into the appropriate area as directed 1 (One) Time Per Week., Disp: 0.5 mL, Rfl: 3 Past Medical History: Diagnosis Date Asthma Crohn disease Hypertension IBS (irritable bowel syndrome) CHRIST (obstructive sleep apnea) noncompliant CPAP Past Surgical History: Procedure Laterality Date CYST REMOVAL from breast GALLBLADDER SURGERY HEMORRHOIDECTOMY N/A 06/10/2023 Procedure: EXAM UNDER ANESTHESIA WITH ANODERMAL AND ENDORECTAL ADVANCEMENT FLAP WITH WATERS RETRACTOR; Surgeon: Sinan Valdez MD; Location: [facility]; Service: General; Laterality: N/A; HYSTERECTOMY 03/2024 [employer] Family History Problem Relation Name Age of Onset Hypertension Mother Breast cancer [...] Male control/protection: None Objective Vital Signs: BP 116/64 Pulse 77 Ht 172.7 cm (68 ) Wt 95.3 kg (210 lb) SpO2 98% BMI 31.93 kg/m?? Estimated body mass index is 31.93 kg/m?? as calculated from the following: Height as of this encounter: 172.7 cm (68 ). Weight as of this encounter: 95.3 kg (210 lb). Physical Exam Constitutional: Appearance: Normal appearance. [...] Content: Thought content normal. Judgment: Judgment normal. Results Assessment and Plan Diagnoses and all orders for this visit: 1. Obesity (BMI 35.0-39.9 without comorbidity) (Primary) - Tirzepatide-Weight Management (ZEPBOUND) 10 MG/0.5ML solution auto-injector; Inject 0.5 mL underthe skin into the appropriate area as directed 1 (One) Time Per Week. Dispense: 0.5 mL; Refill: 3 2. Palpitations 3. Hypertension, essential - Tirzepatide-Weight Management (ZEPBOUND) 10 MG/0.5ML solution auto-injector; Inject 0.5 mL under the skin into the appropriate area as directed 1 (One) Time Per Week. Dispense: 0.5 mL; Refill: 3 4. Hypercholesterolemia - Tirzepatide-Weight Management (ZEPBOUND) 10 MG/0.5ML solution auto-injector; Inject 0.5 mL under the skin into the appropriate area as directed 1 (One) Time Per Week. Dispense: 0.5 mL; Refill: 3 5. CHRIST (obstructive sleep apnea) - Tirzepatide-Weight Management (ZEPBOUND) 10 MG/0.5ML solution auto-injector; Inject 0.5 mL under the skin into the appropriate area as directed 1 (One) Time Per Week. Dispense: 0.5 mL; Refill: 3 Assessment & Plan 1. Obesity. She has experienced a weight loss of approximately 18 to 20 pounds since her last visit. She will continue her Zepbound weekly. If she feels she has plateaued, she may consider increasing the dose to10 mg, but she should revert to 7.5 mg if she experiences significant side effects. A prescription for Zepbound 10 mg with 3 refills has been provided. 2. Hypertension. Her blood pressure has shown significant improvement, likely due to her weight loss and current medication regimen. She will continue her current medications, including metoprolol and lisinopril. No new medications are needed at this time. 3. Hypercholesterolemia. Patient will have annual labs in September with her PCP. She reports she has changed her diet since starting on Zepbound. 4. Obstructive sleep apnea History of Christ intolerant to pap therapy. Started Zepbound and has had 18 to 20 pound weight loss. Follow-up The patient will follow up in 3 months. Recommendations: ER if symptoms increase, Report if any new/changing symptoms immediately, Limit salt, Sleep risks reviewed (driving, medical, sleep , sedating agents), and Sleep hygiene discussed Follow Up Return in about 3 months (around 06/07/2025) for Medication refills . Patient or patient abrasives sales representative verbalized consent for the use of Ambient Listening during the visit with Joanie Ross APRN for chart documentation. 03/07/2025 13:22 EST Patient was given instructions and counseling regarding her condition or for health maintenance advice. Please see specific information pulled into the AVS if appropriate. documented in this encounter Plan of Treatment Upcoming Encounters Date Type Department Care Team (Late st Contact Info) Description 06/06/2025 2:30 PM EST Office Visit [facility] [address] [place] [id number] Joanie Ross APRN [address] [place] [address] [place] [address] documented as of this encounter Visit Diagnoses Diagnosis Obesity (BMI 35.0-39.9 without comorbidity)- Primary Palpitations Hypertension, essential Unspecified essential hypertension Hypercholesterolemia Pure hypercholesterolemia CHRIST (obstructive sleep apnea) Obstructive sleep apnea (adult) (pediatric) documented in this encounter Care Teams Telephone Assembler Relationship Specialty Start Date End Date Abdifatah Miller MD [address] [facility] [address] [facility] [address] [place] [address] PCP - General Family Medicine 07/12/22 documented as of this encounter
--- OUTSIDE RECORDS SUMMARY | 2025-03-27 11:00 | XMS_ITS ---
[facility] Address [address] [place] [id number] Care Team Providers Care Pretzel Twister Name Role Phone Gina Steen Primary Care Provider Kathi Rivero Unavailable [phone] Allergies Allergen (clinical drug ingredient) Drug/Non Drug Allergy documented on EMR Reaction Allergy Type Onset Date Status Substance with penicillin structure and antibacterial mechanism of action (substance) Penicillins Unknown Drug Allergy Active REASON FOR VISIT knot on RT leg Medications Medication SIG (Take, Route, Frequency, Duration) Notes Start Date End Date Status Metoprolol Succinate ER 50 MG Take 1 tablet by mouth twice daily Active Rosuvastatin Calcium 10 MG 1/2 tablet Or ally Once a day 09/27/2024 Active Cyclobenzaprine HCl 10 MG 1 tablet at be dtime as needed Orally Once a day; Duration: 30 days 03/27/2025 Active Lisinopril 20 MG 1 tab(s) orally once a day Active Qvar RediHaler 80 MCG/ACT 1 puff Inhalat ion Twice a day 01/18/2025 Active Ventolin HFA 108 (90 Base) MCG/ACT 1-2 puff(s) inhaled qid, prn 03/13/2021 Active Promethazine-DM 6.25-15 MG/5ML 5 mL orally every 6 hours prn 01/03/2025 Active Flovent Diskus 100 MCG/ACT 1 puff Inhala tion Twice a day; Duration: 30 days Active Colestipol HCl 1 GM 1 tab Orally Once a day Active Zepbound 7.5 MG/0.5ML 0.5 mL Subcutaneous Active Sertraline HCl 50 MG Take 1 tablet by mo uth once daily; Duration: 90 Active Triamterene-HCTZ 37.5-25 MG Take 1 table t by mouth once daily; Duration: 90 Active Vital Signs Blood pressure systolic 140 mm Hg 03/27/20 25 Blood pressure diastolic 70 mm Hg 025 Heart Rate 72 /min 03/27/2025 Height 67.50 in 03/27/2025 Weight 207 lbs 03/27/2025 BMI 31.94 kg/m2 03/27/2025 Encounters Encounter Location Date Provider Diagnosis [facility] [address] [place] [id number] 03/27/2025 Kathi Josefa Mass of right lower extremity R22.41 and Neck muscle spasm M62.838 Assessments Encounter Date Diagnosis (ICD Code) Assessment Notes Treatment Notes Treatment Clinical Notes Section Notes 03/27/2025 Mass of right lower extremity (ICD-10 - R22.41) 03/27/2025 Neck muscle spasm (ICD-10 - M62.838) Plan Of Treatment Medication Medication Name Sig Start Date Stop Date Notes Cyclobenzaprine HCl 10 MG 1 tablet at be dtime as needed Orally Once a day; Duration: 30 days 03/27/2025 Pending Test Test Name Order Date Ultrasound : Leg, right 03/27/2025 Next Appt Details Follow Up: via phone to repo rt test results, Reason: Progress Notes * Saira BALLESTEROSDOB: 7 (49 yo F)Acc No.[id number]:03/27/2025 Progress Notes Patient: Saira DAVIS Provider: ALEX Parry :1975 A ge:49 Y S ex:Female Date:03/27/2025 Address:[address], [id number] Pcp:Gina Steen Subjective: * Chief Complaints: * 1 . knot on RT leg. * HPI: D ermatology: 49 year old female presents with c/o knot P t here for knot on right leg. Pt states it came up about 2 weeks ago. Pt states it does not hurt. N tiara: c/o pain l eft side of neck. * ROS: D ERMATOLOGY: no R tasha. [...] Diagno stic Procedure: H ER-back pain 03/22/16, [facility] ER-back pain 03.25.16, [facility] Viral Menigitis 03/26-03/30/16. * Family [...] tab Orally Once a day , Taking Triamterene-HCTZ 37.5-25 MG Tablet Take 1 tablet by mouth once daily , Taking Sertraline HCl 50 MG Tablet Take 1 tablet by mouth once daily , Taking Promethazine-DM 6.25-15 MG/5ML Syrup 5 mL orally every 6 hours prn , Taking Ventolin HFA 108 (90 Base) MCG/ACT Aerosol Solution 1-2 puff(s) inhaled qid, prn , Taking Flovent Diskus 100 MCG/ACT Aerosol Powder Breath Activated 1 puff Inhalation Twice a day , Taking Qvar RediHaler 80 MCG/ACT Aerosol Breath Activated 1 puff Inhalation Twice a day , Discontinued Medrol 4 MG Tablet Therapy Pack as directed Orally , Discontinued Zithromax Z-Etienne 250 MG Tablet as directed Orally , Medication List reviewed and reconciled with the patient * Allergies: P enicillins. Objective: * Vitals: W t: 207, Temp: 98.3, BP: 140/70, HR: 72, Nurse: rick, Ht: 67.50, BMI:31.94. * Examination: G eneral Examination: General Appearance: N AD. N tiara: n o spinal tenderness, there is ttp over the left trapezius muscle. C hest: n ormal shape and expansion. H eart: R SR. L ungs: c lear to auscultation. S kin: r ight thigh with a nontender subcutaneous nodule, soft, mobile. Assessment: * Assessment: 1. M ass of right lower extremity - R22.41 (Primary) 2 . N tiara muscle spasm - M62.838 Plan: * Treatment: 2.?Neck muscle spasm? Start Cyclobenzaprine HCl Tablet, 10 MG, 1 tablet at bedtime as needed, Orally, Once a day, 30 days, 30 Tablet, Refills 0.?? * Follow Up: v ia phone to report test results * Images: Billing Information: * Visit Code: 76255 Office Visit, Est Pt., Level 3. * Procedure Codes: * Electronic signature of ALEX Greene on 04/04/2025 at 02:24 PM EST Sign off status: Pending * Provider: ALEX Parry Date: 05/28/2024 Generated for Francesca pineda/Rudolph/Yueitting on: 06/05/2024 02:24 PM EST History and Physical Notes * HPI (History of Present Illness) Category Sub-Category Detail Notes Category Not es Dermatology knot Pt here for knot on right leg. Pt states it came up about 2 weeks ago. Pt states it does not hurt Neck pain left side of neck Examination Category Sub-Category Detail Notes Category Not es General Examination Heart: RSR Lungs: clear to auscultatio n General Appearance: NAD Skin: right thigh with a n ontender subcutaneous nodule, soft, mobile Neck: no spinal tenderness , there is ttp over the left trapezius muscle Chest: normal shape and exp ansion
--- NOTE | 2025-04-04 14:08 | US_ITS ---
FINAL REPORT CLINICAL HISTORY: MASS OF rt upper inner thigh FINDINGS: Limited sonographic images were obtained of the soft tissues in the right upper inner thigh at the area of reported abnormality. There is a vessel at the area of interest with positive blood flow. It appears to be a varicosity. IMPRESSION: Varicosity of the area of interest. Reviewed, Interpreted and Dictated by Thomas Malagon MD Transcribed by Emmie Casiano Authenticated and [facility]
--- OUTSIDE RECORDS SUMMARY | 2025-04-04 14:24 | XMS_ITS | Clinical Summary ---
Author Organization [facility] Address [address] [address] Care Team Providers Care Pharmacy Tech Customer Service Name Role Phone Abdifatah Miller MD Primary Care Provider [phone] Allergies Active Allergy Reactions Criticality Noted Date [...] (Four) Hours As Needed for Wheezing. Active triamterene-hy drochlorothiaz minh (MAXZIDE-25) 37.5-25 MG per tablet Take 1 tablet by mouth Daily. 3 Active colestipol (COLESTID) 1 g tablet Take 1 tablet by mouth Daily. Active metoprolol succinate XL (TOPROL-XL) 50 MG 24 hr tabletIndicati ons:Palpitatio ns Take 1 tablet by mouth 2 (Two) Times a Day. 180 tablet 3 5 Active ezetimibe (ZETIA) 10 MG tablet Take 1 tablet by mouth Daily. 90 tablet 3 5 Active lisinopril (PRINIVIL,ZEST RIL) 10 MG tabletIndicati ons:Hypertensi on, essential Take 1 tablet by mouth twice daily 180 tablet 3 5 Active Qvar RediHaler 80 MCG/ACT inhaler Inhale 1 puff 2 (Two) Times a Day. 5 Active hydroxychloroq uine (PLAQUENIL) 200 MG tablet Take 1 tablet by mouth Every 12 (Twelve) Hours. 5 Active Tirzepatide-We ight Management (ZEPBOUND) 10 MG/0.5ML solution auto-injectorI ndications:Obe sity (BMI 35.0-39.9 without comorbidity),H ypertension, essential,Hype rcholesterolem ia,TED (obstructive sleep apnea) Inject 0.5 mL under the skin into the appropriate area as directed 1 (One) Time Per Week. 0.5 mL 3 5 Active Tirzepatide-We ight Management (ZEPBOUND) 7.5 MG/0.5ML solution auto-injectorI ndications:Obe sity (BMI 35.0-39.9 without comorbidity),O SA (obstructive sleep apnea) Inject 0.5 mL under the skin into the appropriate area as directed 1 (One) Time Per Week. 0.5 mL 2 5 03/07/20 25 Discontin ued(*Ther apy completed ) Active Problems Problem Noted Date Diagnosed Date [...] she had recent lab work with her inter com installer but did not check her cholesterol. She continues on the rosuvastatin 10 mg daily. She has done well with this medication. Plan to continue current medication and to check lipids. She states she would like to order sent to [facility] for her blood work. Anal fistula 06/10/2023 [...] She was followed by Dr. Alexander in [facility] several years ago. She reports she [...] Encounters Date Type Department Care Team Description 03/07/2025 1:00 PM EST Office Visit [facility] [address] [place] [address] Joanie Ross, DIRECTOR OF OCCUPATIONAL THERAPY Obesity (BMI 35.0-39.9 without comorbidity) (Primary Dx); Palpitations; Hypertension, essential; Hypercholesterolemia; TED (obstructive sleep apnea) 03/07/2025 Telephone [facility] [address] [place] [place] [address] Joanie Ross APRN 03/07/2025 Travel 01/28/2025 Telephone [facility] [address] [place] [address] Joanie Ross APRN 01/24/2025 Refill [facility] [address] [place] [place] [address] Chana Andres MD Med Refill from Last 3 Months Immunizations [...] Pulse 77 03/07/2025 12:58 PM EST Temperature 36.7 C (98.1 F) 06/10/2023 4:55 PM EST Respiratory Rate 13 06/10/2023 4:55 PM EST Oxygen Saturation 98% 03/07/2025 12:58 PM EST Inhaled Oxygen Concentration - - Weight 95.3 kg (210 lb) 03/07/2025 12:58 PM EST Height 172.7 cm (5' 8 ) 03/07/2025 12:58 PM EST Body Mass Index 31.93 03/07/2025 12:58 PM EST Plan of Treatment Upcoming Encounters Date Type Department Care Team (Late st Contact Info) Description 06/06/2025 2:30 PM EST Office Visit [facility] [address] [place] [address] Joanie Ross, DIRECTOR OF OCCUPATIONAL THERAPY [address] [place] [address] [place] [address] Health Maintenance Due Date Last Done [...] Date/Time Associated Diagnosis Comments SCANNED - LABS 01/03/2025 LIPID PANEL Routine 03/23/2024 Hypercholesterolemia from Last 3 Months or Most Recently Relevant to Health Maintenance Results * LABS SCANNED (01/03/2025) us Chana Andres MD LAB BLOOD ORDERABLES Final R esult * Lipid Panel (03/23/2024) Blood us Joanie Ross DIRECTOR OF OCCUPATIONAL THERAPY LAB BLOOD ORDERABLES Final R esult [facility]
[address] [place] [id number], from Last 3 Months or Most Recently Relevant to Health Maintenance Insurance [facility] PPO Care Teams Pharmacy Tech Customer Service Relationship Specialty Start Date End Date Abdifatah Miller MD [address] [facility] [address] [place] [address] PCP - General Family Medicine 07/12/22
--- OUTSIDE RECORDS SUMMARY | 2025-04-04 14:24 | XMS_ITS | Referral Summary ---
Author Organization [facility] ([place], [place], [place], [place], [place]) Address [address] [place] [address] Care Team Providers Care Director Of Market Intelligence Name Role Phone Abdifatah Miller MD Primary Care Provider [phone] Allergies Active Allergy Reactions Criticality Noted Date [...] Date Mark rded Speak language other than Chinese at home Not on file 05/07/2023 Want [...] Plan of Treatment Not on file Insurance BLUE CROSS/BLUE SHIELD Care Teams Director Of Market Intelligence Relationship Specialty Start Date End Date Abdifatah Miller MD [address] [place] [address] PCP - General Family Medicine 02/18/23
--- OUTSIDE RECORDS SUMMARY | 2025-04-04 14:24 | XMS_ITS | Clinical Summary ---
Author Organization [facility] Address [address] [place] [address] Care Team Providers Care Dtp Operator Name Role Phone Pcp, No Primary [...] Health Maintenance Due Date Last Done Comments [facility]-/Child/Adol SDOH Screenings 1975 [facility]- SDOH Screenings 1994 [facility]-Adult SDOH Screenings 1994 [facility]-Hepatitis B Vaccines (1 of 3 - 19+ 3-dose series) 08/24/1995 CT Colonography 2021 Colonoscopy 2021 FIT-DNA 2021 FIT 2021 FOBT 2021 Sigmoidoscopy 2021 [facility]-Colorectal Cancer Screening 2021 [facility]-DTaP,Tdap,and Td Vaccines (2 - Td or Tdap) 07/31/2022 07/31/2012 [id number] Vaccine (1 - 2024- season) 2024 [facility]-Influenza Vaccine (#1) 2024 [facility]-Depression [...] 03/30/2024, 10/28/2023, Additional history exists HPV Vaccines (No Doses Required) Completed [facility]-HIB Vaccines Aged Out No longer e [...] Pap, Source Cx/Vaginal 10/12/2023 1:39 PM EDT [facility]) EER Referred ThinPrep Pap and HPV See Note 10/12/2023 1:39 PM EDT [facility]) PAP, THINPREP Normal 10/12/2023 1:39 PM EDT [facility] ([facility]) High Risk HPV Normal 10/12/2023 1:39 PM EDT [facility] ([facility]) Swab Vaginal and cervical cytologic material / Unknown Non-blood Collection / Unknown 10/07/2023 9:43 AM EDT 10/07/2023 12:39 PM EDT Narrative [facility] ([facility]) - 10/12/2023 1:39 PM EDT Authorized individuals can access the [facility] Enhanced Report using the following link: [email or web address] Performed By: [facility] [address] [place] [id number] Net Trainer: Ambrocio Cantor MD, PhD CLIA Number: [id number] SPECIMEN PART A. Cervical, Endocervical, Vaginal, ThinPrep Pap (Pump Rebuilder) CYTOLOGY HX Date of Last Menstrual Period: n FINAL DIAGNOSIS INTERPRETATION: Negative for Intraepithelial Lesion or Malignancy. SPECIMEN ADEQUACY:Satisfactory for evaluation. Endocervical/transformation zone component present. Electronically Signed Out : Performed by: [facility] [address] [place] [address] [place] [address] Jolly Frias MD, HR-HPV: Negative Test performed by the FDA-approved [employer] (Gen-Probe) APTIMA HPV test, which detects HPV genotypes: 16, 18, 31, 33, 35, 39, 45, 51, 52, 56, 58, 59, 66, and 68. Performed by: [facility] ([facility]) [address] [place] [address] [place] [address] Jolly Frias MD, Kari Moscoso APRN LAB REF LAB BLOOD AND FLUID OR D Final Result Performing Organization Address City/[facility]/ZIP Co de Phone Number MERGED WITH [facility] [address] * HIV 1 & 2 Antibody/Antigen Screen (08/05/2016 11:09 AM EDT) HIV 1 Result NONREACTIVE Screening for HIV 1 and 2 antibodies is NONREACTIVE. No confirmatory testing is required. [facility] 08/05/2016 11:0 9 AM EDT 08/05/2016 12:21 PM EDT Laura Woods MD LAB BLOOD ORDERABLES Final Re sult [facility] * Hepatitis C Antibody (08/05/2016 11:09 AM EDT) Hepatitis C Antibody NEGATIVE Reference Range: Negative [facility] 08/05/2016 11:0 9 AM EDT 08/05/2016 12:21 PM EDT us Laura Woods MD LAB BLOOD ORDERABLES Final Re sult [facility] from Last 3 Months or Most Recently Relevant to Health Maintenance Insurance [employer] Care Teams Dtp Operator Relationship Specialty Start Date End [place] [address] PCP - General Family Medicine 03/30/24
--- OUTSIDE RECORDS SUMMARY | 2025-04-04 14:24 | XMS_ITS | Encounter Summary ---
Author Organization Healthcare Address [address] [facility] [place] [address] Care Team Providers Care Liberal Arts Teacher Name Role Phone Pcp, No Primary Care Provider Unavailabl e Encounter Details Date Type Department Care Team ([facility] st Contact Info) Description 10/27/2023 Outside Procedure External Location [address] [place] [address] Maycol Buckley, CASE PLANNER [address] [place] [address] Social History Tobacco Use Types Packs/Day Years [...] AM EDT Narrative 10/27/2023 3:33 [place] [address] Name: SAIRA BALLESTEROS Exam Date: 10/27/2023 : 1975 Age 48 years Gender: F Physician: MAYCOL BUCKLEY Facility: [facility] Facility HSV: Outpatient Exam: GINI SCRN MAMMO [...] signed by:Kimo Potts MD10/27/2023 03:29 PM EDT Dictated By: Kimo Potts Transcribed By: Transcribed On: 10/27/2023 9:52 AM Electronically signed by: Kimo Potts 10/27/2023 Thank you for referring SAIRA BALLESTEROS to [facility]. Legally authenticated by TRENA MACK 2023-10-27 09:52:19 Procedure Note Provider, [facility] - 10/27/2023 [place] [id number] Name: SAIRA BALLESTEROS Exam Date: 10/27/2023 : 1975 Age 48 years Gender: F Physician: MAYCOL BUCKLEY Facility: [facility] Facility HSV: Outpatient Exam: GINI SCRN MAMMO [...] Kimo Potts 10/27/2023 Thank you for referring BALLESTEROSSAIRA to [facility]. Legally authenticated by TRENA MACK 2023-10-27 09:52:19 Maycol Buckley APRN IMG BI PROCEDURES Final Result documented in this encounter Visit Diagnoses Not on filedocumented in this encounter Additional Health Concerns Assessment Noted Time A fall risk assessment has been complete d for the patient 10/07/2023 9:12 AM EDT A Body Mass Index follow-up plan has been documented for the patient 10/07/2023 1:11 PM EDT documented as of this encounter Care Teams Liberal Arts Teacher Relationship Specialty Start Date End [place] [address] PCP - General Family Medicine 03/30/24 documented as of this encounter
--- OUTSIDE RECORDS SUMMARY | 2025-04-04 14:24 | XMS_ITS | Clinical Summary ---
Author Organization [employer] ([place], [place], [place], [place], [place]) Address [address] [place] [address] Care Team Providers Care M1A1 Tank Crewman Name Role Phone Abdifatah Miller MD Primary Care Provider [phone] [phone] Allergies Active Allergy Reactions Criticality Noted Date [...] Date Mark rded Speak language other than Maltese at home Not on file 05/07/2023 Want [...] 2024 Insurance BLUE CROSS/BLUE SHIELD Care Teams M1A1 Tank Crewman Relationship Specialty Start Date End Date Abdifatah Miller MD [address] [place] [address] PCP - General Family Medicine 02/18/23
--- OUTSIDE RECORDS SUMMARY | 2025-04-04 14:24 | XMS_ITS | Encounter Summary ---
Author Organization Healthcare Address [address] [place] [address] Care Team Providers Care Clock Smith Name Role Phone Pcp, No Primary Care Provider Unavailabl e Encounter Details Date Type Department Care Team ([facility] st Contact Info) Description 10/08/2022 Community [facility] [address] [place] [address] Lisa Cooley, COMMERCIAL SUBCONTRACTOR [address] [place] [id number] Obstructive sleep apnea (adult) (pediatric) (Primary [...] documented as of this encounter Care Teams Clock Smith Relationship Specialty Start Date End Date Pcp, No [address] [place] [address] PCP - General Family Medicine 03/30/24 documented as of this encounter
--- OUTSIDE RECORDS SUMMARY | 2025-04-04 14:25 | XMS_ITS | Encounter Summary ---
[facility] Address [address] [place] [address] Care Team Providers Care Rn Faculty Name Role Phone Abdifatah Miller MD Primary Care Provider +1 [phone] Encounter Details Date Type Department Care Team (Late st Contact Info) Description 03/07/2025 Telephone [facility] [address] [place] [address] Joanie Ross, METAL DRILL PRESS OPERATOR [address] [place], [place] [id number] Social History Tobacco Use Types Packs/Day Years [...] Telephone Encounter - Rebeca Singletary MA - 03/07/2025 2:39 PM EST Called pharmacy and confirmed dispense quantity for 28 days. * Telephone Encounter - Sobeida Galvan RegSched Rep - 03/07/2025 2:32 PM EST [facility] [place] called and LVM requesting a call back regarding Zepbound prescription that was sent in today. Quantity states 0.5. Pharmacy stated quantity needs to be changed or patient would just get 1 box. She stated to call back at [phone]. documented in this encounter Plan of Treatment Upcoming Encounters Date Type Department Care Team (Late st Contact Info) Description 06/06/2025 2:30 PM EST Office Visit [facility] [address] [place] [address] Joanie Ross, METAL DRILL PRESS OPERATOR [address] [place], [place] [id number] documented as of this encounter Visit Diagnoses Not on filedocumented in this encounter Care Teams Rn Faculty Relationship Specialty Start Date End Date Abdifatah Miller MD [address] [address] [place] [address] PCP - General Family Medicine 07/12/22 documented as of this encounter
--- OUTSIDE RECORDS SUMMARY | 2025-04-04 14:25 | XMS_ITS | Patient Health Record ---
Author [facility] Address [address] [place] [id number] Care Team Providers Care Detail Supervisor Name Role Phone Gina Steen Primary Care Provider Kathi Rivero [phone] Allergies Allergen (clinical drug ingredient) Drug/Non Drug Allergy documented on EMR Reaction Allergy Type Onset Date Status Substance with penicillin structure and antibacterial mechanism of action (substance) Penicillins Unknown Drug Allergy Active Results Component Value Reference Range Notes Ultrasound : Breast, right Reviewed date:05/24/2024 05:08:38 PM Interpretation:needs additional imaging Performing Lab: Notes/Report: needs additional imaging venous doppler ultrasound le g, lower right Reviewed date:06/28/2024 01:25:51 PM Interpretation: Performing Lab: Notes/Report: P-Arthritis Panel, Seeq Reviewed date:09/12/2024 03:38:29 PM Interpretation:ESR 30, CRP 0.62 Performing Lab: Notes/Report: Test performed by [facility] [address] [place] [address] , [address], [place] [address] MD, Special Assemblies Supervisor CLIA: [id number] Erythrocyte Sedimentation Rate (ESR), Automated 30 <26 mm/hr Rheumatoid Factor 10.0 <14.1 IU/mL C-Reactive Protein (CRP) 0.62 <0.50 mg/dL Antinuclear Antibodies (NEYDA) Screen, Reflex NEYDA 9 Panel Negative Negative This test is perform ed by Multiplex Bead Immunoassay methodology. Antinuclear Antibodies (NEYDA) Result Note SEE COMMENT For positive Autoantibodies, please refer to the interpretive chart here: [email or web address] CCP Antibodies <0.5 <0.5-3.0 U/mL proBrain Natriuretic Peptide Reviewed date:09/12/2024 03:38:29 PM Interpretation:None Performing Lab: Notes/Report: Test performed by [facility] [address] [place], [place] [address] , [address], [place] [address] MD, Special Assemblies Supervisor CLIA: [id number] proBrain Natriuretic Peptide 36 <300 pg/mL Please note the updated reference range values which are stratified by age. Positive >450 pg/mL Indeterminate 300-450 pg/mL Negative <300 pg/mL Ankle-brachial index Reviewed date:09/12/2024 03:38:29 PM Interpretation:Negative Performing Lab: Notes/Report: Negative CBC Venipuncture (in house) Reviewed date:09/27/2024 08:35:21 [...] Interpretation: Performing Lab: Notes/Report: Test performed by [facility] [address] [place] [address] , [address], [place] [address] MD, Special Assemblies Supervisor CLIA: [id number] Sodium 138 135-145 mmol/L Potassium 4.6 3.5-5.3 [...] 185 Performing Lab: Notes/Report: Test performed by [facility] [address] [place] [address] , [place] [address] MD, Special Assemblies Supervisor CLIA: [id number] Cholesterol 261 <200 mg/dL Triglycerides 150 <150 [...] Results: 185 Units: mg/dL % Change: - Influenza Screen (in house) Reviewed date:01/03/2025 04:54:55 [...] PM Interpretation: Performing Lab: Notes/Report: Result: neg H-COVIDPANEL Reviewed date:06/29/2024 04:19:33 PM Interpretation: Performing Lab: Notes/Report: Cancel Comments WRONG TEST H-COVIDPCR Reviewed date:06/29/2024 04:20:04 PM Interpretation: Performing Lab: Notes/Report: Cancel Comments WRONG TEST No Is this the 1st COVID test for the patient? No Does the patient have COVID symptoms? Yes Is the patient employed in healthcare? No Is patient an [employer] employee? N Is patient currently hospitalized? No Is patient currently in ICU? No Date of Symptom onset Is patient a resident in a congregate care setting? No Covid test (in house) Reviewed date:06/29/2024 04:20:49 PM Interpretation:neg Performing Lab: Notes/Report: neg Result: neg H-Covid, Flu A, Flu B PCR Reviewed date:06/29/2024 04:19:45 PM Interpretation: Performing Lab: Notes/Report: No Is this the 1st COVID test for the patient? No Does the patient have COVID symptoms? Yes Is the patient employed in healthcare? No Is patient an [facility] employee? N Is patient currently hospitalized? No [...] FLUAPCR Detected NotDetected FLUBPCR Not Detected NotDetected CBC Fingerstick (in house) Reviewed date:06/29/2024 04:21:08 [...] - 38 plat 289 100 - 400 Influenza Screen (in house) Reviewed date:06/29/2024 04:20:58 PM Interpretation:neg Performing Lab: Notes/Report: neg results neg Mammogram Reviewed date:01/31/2025 04:01:07 PM Interpretation:Negative Performing Lab: Notes/Report: Negative result Negative Mammogram : Diagnostic Right Breast Reviewed date:06/13/2024 02:44:57 PM Interpretation:probably benign, 6 month f/u US recommended Performing Lab: Notes/Report: probably benign, 6 month f/u US recommended Medications Medication SIG (Take, Route, Frequency, Duration) Notes Start Date End Date Status Ventolin HFA 108 (90 Base) MCG/ACT 1-2 puff(s) inhaled qid, prn 03/13/2021 Active Triamterene-HCTZ 37.5-25 MG Take 1 table t by mouth once daily; Duration: 90 Active Promethazine-DM 6.25-15 MG/5ML 5 mL orally every 6 hours prn 01/03/2025 Active Flovent Diskus 100 MCG/ACT 1 puff Inhala tion Twice a day; Duration: 30 days Active Metoprolol Succinate ER 50 MG Take 1 tablet by mouth twice daily Active Sertraline HCl 50 MG Take 1 tablet by [facility] once daily; Duration: 90 Active Rosuvastatin Calcium 10 MG 1/2 tablet Or ally Once a day 09/27/2024 Active Cyclobenzaprine HCl 10 MG 1 tablet at be dtime as needed Orally Once a day; Duration: 30 days 03/27/2025 Active Lisinopril 20 MG 1 tab(s) orally once a day Active Qvar RediHaler 80 MCG/ACT 1 puff Inhalat ion Twice a day 01/18/2025 Active Colestipol HCl 1 GM 1 tab Orally Once a day Active Zepbound 7.5 MG/0.5ML 0.5 mL Subcutaneous Active Immunizations Vaccine Route Administration Date Status Comme nts Hepatitis A (adult) Unknown 09/01/2018 Administered ppd ID Intradermal 11/24/2009 Administered ppd SC Subcutaneous 11/01/2011 Administered Tetanus Tdap-Adacel (over 7yrs) Unknown 07/31/2012 Administered tuberculin (ppd) ID Intradermal 06/09/2005 Administered tuberculin (ppd) ID Intradermal 11/20/2007 Administered Problems Problem Type SNOMED Code ICD Code Onset Dates Problem Status W/U Status Risk Notes Problem Gastroesophageal reflux disease (817673139) GERD (gastroesophageal reflux disease) (K21.9) Active confirmed Problem Sinusitis (95231130) Sinusitis (J32.9) Active confirmed Problem Hypertension (17831039) HTN (hypertension) (I10) Active confirmed Problem Essential hypertension (00759159) Essential hypertension (I10) Active confirmed Problem Abnormal mammogram (612472957) Abnormal mammogram (R92.8) Active confirmed Problem Irritable bowel syndrome (47431986) IBS (irritable bowel syndrome) (K58.9) Active confirmed Problem Cardiac dysrhythmia (759264840) Cardiac dysrhythmia (I49.9) Active confirmed Problem Asthma (098797974) Asthma (J45.909) Active conf irmed Problem Mixed anxiety and depressive disorder (492077198) Depression with anxiety (F41.8) Active confirmed Problem Lymphedema (43432265) Lymphedema (I89.0) Active confirmed Problem Mixed hyperlipidemia (301055443) Mixed hyperlipidemia (E78.2) Active confirmed Problem Crohn disease (72553208) Crohn disease (K50.90) Active confirmed Problem Dyslipidemia (634693702) Dyslipidemia (E78.5) Active confirmed Problem Cyst of right breast (93810533481211935) Cyst of right breast (N60.01) Active confirmed Problem Disorder of soft tissue (59749288) Right leg swelling (M79.89) Active confirmed Vital Signs Heart Rate 72 /min 03/27/2025 Blood pressure diastolic 70 mm Hg 03/27/2025 Height 67.50 in 03/27/2025 Blood pressure systolic 140 mm Hg 03/27/2025 Weight 207 lbs 03/27/2025 BMI 31.94 kg/m2 03/27/2025 Encounters Encounter Location Date Provider Diagnosis [facility] [address] [facility] [address] [place] [id number] 05/09/2024 Kathi Crowdy Breast abscess N61.1 [facility] [address] [facility] [address] [place] [id number] 06/27/2024 Kathi Crowdy Swelling of right lo wer extremity M79.89 [facility] [address] [facility] [address] [place] [id number] 06/29/2024 Kathi Crowdy Acute URI J06.9 ; Bronchitis J40 and Influenza A J10.1 [facility] [address] [facility] [address] [place] [id number] 09/06/2024 Kathi Crowdy Right leg swelling M79.89 and Right leg pain M79.604 [facility] [address] [facility] [address] [place] [id number] 09/25/2024 Gina Steen Essential hypertensi on I10 ; Dyslipidemia E78.5 ; Depression with anxiety F41.8 and Cardiac dysrhythmia I49.9 [facility] [facility] [facility] [address] [place] [id number] 01/03/2025 Kathi Crowdy Acute URI J06.9 and Bronchitis J40 [facility] [facility] [facility] [address] [place] [id number] 03/27/2025 Kathi Crowdy Mass of right lower extremity R22.41 and Neck muscle spasm M62.838 [facility] [address] [place], [place] [id number] 05/24/2024 Kathi Crowprema [facility] [address] [place], [place] [id number] 06/28/2024 Kathi Canalesprema [facility] [address] [place], [place] [id number] 08/28/2024 R Klaus Enio [facility] [address] [place] [id number] 09/12/2024 Kathi Canalesprema [facility] [address] [place], [place] [id number] 09/27/2024 R Klaus Enio [facility] [address] [place], [place] [id number] 10/02/2024 R Klaus Enio [facility] [address] [place] [id number] 01/04/2025 R Klaus Enio [facility] [address] [place], [place] [id number] 01/16/2025 Kathi Rivero Assessments Encounter Date Diagnosis (ICD Code) Assessment Notes Treatment Notes Treatment Clinical Notes Section Notes 05/09/2024 Breast abscess (ICD-10 - N61.1) Apply moist heat. 06/27/2024 Swelling of right lower extremity (ICD-10 - M79.89) 06/29/2024 Bronchitis (ICD-10 - J40) Has nebs at home she is using. Will start on steroids and cough medications. Will check for flu at [facility] with a PCR test. 06/29/2024 Acute URI (ICD-10 - J06.9) 09/06/2024 Right leg pain (ICD-10 - M79.604) 09/06/2024 Right leg swelling (ICD-10 - M79.89) 09/25/2024 Essential hypertension (ICD-10 - I10) 09/25/2024 Dyslipidemia (ICD-10 - E78.5) 01/03/2025 Bronchitis (ICD-10 - J40) 01/03/2025 Acute URI (ICD-10 - J06.9) 03/27/2025 Neck muscle spasm (ICD-10 - M62.838) 03/27/2025 Mass of right lower extremity (ICD-10 - R22.41) 09/25/2024 Depression with anxiety (ICD-10 - F41.8) 06/29/2024 Influenza A (ICD-10 - J10.1) Rest, fluids, tylenol or motrin for fevers. Home until fever free for 24-48 hours without the use of medication. 09/25/2024 Cardiac dysrhythmia (ICD-10 - I49.9) Plan Of Treatment Pending Test Test Name Order Date Ultrasound : Leg, right 03/27/2025 P-BNP (Brain Natriuretic Peptide) 2024 Ultrasound : leg, lower right extremity 03/28/2025 Insurance Providers Payer Name Payer Address Payer Phone Subscriber Number Group Number Insured Name Patient Relationship to Insured Coverage Start Date Coverage End Date [facility] [address] [place] [address] [id number] Saira Jean Baptiste Self - patient is the insured Medications Administered Medication Instructions Date of Administration Dosage Notes Depo- Medrol 40 mg/ml 08/27/2013 Depo- Medrol 40 mg/ml 03/22/2016 1.5 mL Depo- Medrol 40 mg/ml 01/25/2017 1 mL Dexamethasone 08/05/2017 1 mL Medical (General) History Medical History History ICD Code Crohn's dysrrhythmia-treated with Beta blockers Normal echocardiogram 07/21 environmental allergies-takes allergy ots Surgical History Surgery Date(Month/Year) [place] Hysterectomy 04/03/2024 Hospitalization History Reason Date(Month/Year) [facility] Viral Meni gitis 03/26-03/30/16 [facility] ER-back pain 12.8.16 [facility] ER-back pain 03/22/16
--- OUTSIDE RECORDS SUMMARY | 2025-04-04 14:25 | XMS_ITS | Encounter Summary ---
[facility] Address [address] [place] [address] Care Team Providers Care Tobacco Sizer Name Role Phone Abdifatah Miller MD Primary Care Provider +1 -[phone] Encounter Details Date Type Department Care Team (Latest Contact Info) Description 03/07/2025 Travel Social History Tobacco Use Types Packs/Day [...] Description 06/06/2025 2:30 PM EST Office Visit [facility] [address] [place] [phone] Joanie Ross, SHELVER [address] [place] [address] [place] [address] documented as of this encounter Visit Diagnoses Not on filedocumented in this encounter Care Teams Tobacco Sizer Relationship Specialty Start Date End Date Abdifatah Miller MD [address] [facility] [address] [facility] [address] [place] [address] PCP - General Family Medicine 07/12/22 documented as of this encounter
== END 2025-04-04 23:59 | disposition home or self-care (01) ==
LOC: RAD 14:05
PROVIDERS: PCP Physician Assistant; Visit Provider Physician Assistant
DX: I83.91 Asymptomatic varicose veins of right lower extremity
CPT/HCPCS: 76882